=== PATIENT | male | born 1945 | race Caucasian/White ===

== ENCOUNTER → 2016-07-27 | Outpatient (CLI) | payer BC ==
[2016-07-27 12:44] LABS: ALT/SGPT 42 U/L (12-78); BLOOD UREA NITROGEN 16 mg/dl (7-18); BUN/CREATININE RATIO 14.8 (10-20); CALCIUM 8.8 mg/dl (8.5-10.1); CARBON DIOXIDE 23 mmol/L (21-32); CHLORIDE 106 mmol/L (98-107); CHOLESTEROL 196 mg/dl (0-200); GLUCOSE 119 mg/dl (70-99); POTASSIUM 3.9 mmol/L (3.5-5.1); SODIUM 140 mmol/L (136-145); TRIGLYCERIDES 367 mg/dl (0-150); VERY LOW DENSITY LIPOPROT CALC 73 mg/dl
[2016-07-27 12:49] LABS: ALB/GLOB RATIO 1.1 (0.9-2); ALKALINE PHOSPHATASE 52 U/L (45-117); AST/SGOT 26 U/L (15-37); CHOLESTEROL/HDL RATIO 5.4; HDL CHOLESTEROL 36 mg/dl; LDL CHOLESTEROL CALCULATED 87 mg/dl
[2016-07-27 12:54] LABS: ESTIMATED AVERAGE GLUCOSE 134 mg/dl; HA1C FLAG Normal (Normal)
[2016-07-27 13:13] LABS: RATIO 9.2 mcg/mg (0-30.0)
== END | disposition home or self-care (01) ==
LOC: C.LABBFT 08:24
PROVIDERS: ATTEND Family Medicine
DX: E11.9 Type 2 diabetes mellitus without complications (principal); I10 Essential (primary) hypertension; E78.5 Hyperlipidemia, unspecified

== ENCOUNTER → 2017-01-06 | Outpatient (CLI) | payer BC ==
[2017-01-06 12:23] LABS: BLOOD UREA NITROGEN 17 mg/dl (7-18); BUN/CREATININE RATIO 16.7 (10-20); CALCIUM 9.1 mg/dl (8.5-10.1); CARBON DIOXIDE 28 mmol/L (21-32); CHLORIDE 104 mmol/L (98-107); GLUCOSE 114 mg/dl (70-99); SODIUM 137 mmol/L (136-145)
[2017-01-06 12:40] LABS: ESTIMATED AVERAGE GLUCOSE 134 mg/dl; HA1C FLAG Normal (Normal)
== END | disposition home or self-care (01) ==
LOC: C.LABBFT 07:42
PROVIDERS: ATTEND Family Medicine
DX: R73.01 Impaired fasting glucose (principal)

== ENCOUNTER → 2017-06-29 | Outpatient (CLI) | payer BC ==
[2017-06-29 13:39] LABS: HEMOGLOBIN A1C 6.3 % (4.5-5.6)
[2017-06-29 14:13] LABS: BLOOD UREA NITROGEN 26 mg/dl (7-18); CALCIUM 9.3 mg/dl (8.5-10.1); CARBON DIOXIDE 25 mmol/L (21-32); CREATININE 1.22 mg/dl (0.60-1.40); GLUCOSE 112 mg/dl (70-99); POTASSIUM 3.7 mmol/L (3.5-5.1); SODIUM 137 mmol/L (136-145)
[2017-06-29 14:16] LABS: CHOLESTEROL 154 mg/dl (0-200); LDL CHOLESTEROL CALCULATED 80 mg/dl
== END | disposition home or self-care (01) ==
LOC: C.LABBFT 07:33
PROVIDERS: ATTEND Family Medicine
DX: I10 Essential (primary) hypertension (principal); M79.1 Myalgia; E11.9 Type 2 diabetes mellitus without complications; E78.5 Hyperlipidemia, unspecified

== ENCOUNTER → 2017-12-07 | Outpatient (CLI) | payer BC ==
[~2017-12-07] MED LIST: ASPI81TA28 PO; ATEN50TA8 PO; CHOL20007 PO; MAXZIDE PO; MELO15TA10 PO; OMEG10007 PO; SIMV20TA2 PO
--- NOTE | 2017-12-07 10:27 | DIAGNOSTIC IMAGING REPORT ---
RIGHT KNEE MRI HISTORY: RT KNEE PAIN COMPARISON STUDY: None. TECHNIQUE: Multiplanar multisequence MRI of the right knee was performed according to standard department protocol without the use of contrast. FINDINGS: Menisci: Mild degeneration within the body of the lateral meniscus without definite tear. Small tear along the undersurface of the junction of the body and posterior horn of the medial meniscus best seen on coronal image 16. There is a 7 mm meniscal flap seen extending into the inferior meniscal gutter also best seen on image 16. Ligaments: The anterior and posterior cruciate ligaments are intact. The medial and lateral collateral ligaments are normal in appearance. Extensor mechanism: The quadriceps tendon and patellar ligament are intact. Articular cartilage and bone: No fracture or dislocation within the right knee. Focal area of greater than 50% cartilage thinning within the median ridge of the patella. There is mild cartilage thinning within the medial femoral condyle. Joint effusion: None. Soft tissues: Mild subcutaneous edema anterior to the patellar ligament. IMPRESSION: 1. There is an undersurface tear at the junction of the body and posterior horn of the medial meniscus with a 7 mm meniscal flap extending into the inferior meniscal gutter. 2. Mild osteoarthritis as described above. 3. Mild subcutaneous edema anterior to the patellar ligament. However, the patellar ligament is within normal limits. Electronically signed by: Michael Leon M.D. 12/07/2017 10:26 AM Dictated Date/Time: 12/07/2017 10:18 AM
== END | disposition home or self-care (01) ==
LOC: C.MRIBC 09:31
PROVIDERS: ATTEND Orthopaedic Surgery
DX: S83.241A Other tear of medial meniscus, current injury, right knee, initial encounter (principal); X58.XXXA Exposure to other specified factors, initial encounter

== ENCOUNTER → 2017-12-13 | Outpatient (CLI) | payer BC ==
[2017-12-13 09:30] LABS: BASO % 0.7 %; BASO ABS # 0.06 K/uL (0-0.2); EOS % 4.3 %; EOS ABS # 0.39 K/uL (0-0.5); HEMATOCRIT 49.7 % (42-52); HEMOGLOBIN 17.2 g/dL (14.0-18.0); IG# 0.02 K/uL (0.00-0.02); LYMPH % 26.6 %; LYMPH ABS # 2.44 K/uL (1.2-3.4); MEAN CORPUSCULAR HEMOGLOBIN 29.8 pg (25-34); MEAN CORPUSCULAR HGB CONC 34.6 g/dl (32-36); MEAN PLATELET VOLUME 9.5 fL (7.4-10.4); MONO ABS # 0.92 K/uL (0.11-0.59); NEUT % 58.2 %; NEUT ABS # 5.33 K/uL (1.4-6.5); PLATELET COUNT 247 K/uL (130-400); RED CELL DISTRIBUTION WIDTH CV 14.2 % (11.5-14.5); RED CELL DISTRIBUTION WIDTH SD 44.1 fL (36.4-46.3); WHITE BLOOD COUNT 9.16 K/uL (4.8-10.8)
[2017-12-13 09:51] LABS: POTASSIUM 3.7 mmol/L (3.5-5.1)
== END | disposition home or self-care (01) ==
LOC: C.LAB 08:44
PROVIDERS: ATTEND Orthopaedic Surgery
DX: S83.241A Other tear of medial meniscus, current injury, right knee, initial encounter (principal); X58.XXXA Exposure to other specified factors, initial encounter; R00.1 Bradycardia, unspecified

== ENCOUNTER → 2018-01-02 | Day surgery (SDC) | payer BC ==
[2017-12-20 08:04] VITALS: Ht 170.2 cm; Wt 86.4 kg
[~2018-01-02] VITALS: Ht 170.2 cm; Wt 86.4 kg
[~2018-01-02] MED LIST changes: +ATROPINE SULFATE 0.1 MG/ML 5ML SYR IV PRN; +BUPIVACAINE 0.5 % 5 MG/1 ML PF 10ML VIAL ONE; +CEFAZOLIN 2000MG IV PUSH 15 ML IV SCH; +DEXAMETHASONE SOD INJ 4 MG/ML VIAL ONE; +EpHEDrine SULFATE 50MG/5ML SYR ONE; +EpHEDrine SULFATE INJ 50 MG/ML AMP IV PRN; +EpINEphrine INJ 1MG/ML AMP 1 MG/ML AMP ONE; +FENTANYL CITRATE INJ 50 MCG/1 ML 2 ML VIAL IV PRN; +FENTANYL CITRATE INJ 50 MCG/1 ML 2 ML VIAL ONE; +KETOROLAC TROMETHAMINE 30 MG/ML VIAL ONE; +LACTATED RINGER'S 1000ML 1,000 ML IV SCH; +LIDOCAINE HCL 2% 2 ML VIAL (20MG/ML) ONE; +MIDAZOLAM HCL 1 MG/ML 2ML VIAL ONE; +ONDANSETRON INJ 2 MG/ML 2 ML VIAL IV PRN; +ONDANSETRON INJ 2 MG/ML 2 ML VIAL ONE; +OXYCODONE/ACETAMINOPHEN 5-325 TAB PO PRN; +PROPOFOL IV EMULSION 10 MG/ML 20 ML VIAL ONE; +ROPIVACAINE 0.5% 5 MG/ML 30 ML VIAL ONE; +SODIUM CHLORIDE 0.9% 1000ML 1,000 ML IV SCH; +TRAM-10 PO
--- NOTE | 2018-01-02 07:52 | History & Physical Bridge - SC ---
H&P Re-Evaluation Bridge Note: I have examined the patient, reviewed the History & Physical and in the interval since the performance of the History & Physical I have noted the following changes of clinical significance: No changes noted
--- NOTE | 2018-01-02 08:17 | [facility] Post Operative Brief Note ---
Immediate Operative Summary Operative Date Jan 02, 2018. Pre-Operative Diagnosis Right Knee Medial Meniscus Tear Post-Operative Diagnosis Same Procedure(s) Performed Right Knee Arthroscopy, Partial Medial Meniscectomy, Chondroplasty of Patella Surgeon Dr. Beth Guitar Technician Surgeon(s) Yael Dan PA-C Estimated Blood Loss 0 mL Findings Consistent with Post-Op Diagnosis Specimens None Drains None Anesthesia Type General Complication(s) none Disposition Accompanied Pt To Recover: no Disposition: Recovery Room / PACU
--- NOTE | 2018-01-02 08:29 | Discharge Instructions-SurgCtr ---
Discharge Instructions Date of Service Jan 02, 2018. Visit Reason for Visit: Right Knee Medial Meniscus Tear Discharge Discharge Diagnosis / Problem: SAME ABOVE Discharge Goals Goal(s): Decrease discomfort, Improve function Medications Stopped Medications Name(s): Aspirin, Meloxicam, Fish Oil Last dose 1 week ago Activity Recommendations Activity Limitations: as noted below Lifting Limitations: until after follow-up appointment Exercise/Sports Limitations: until after follow-up appointment Shower/Bathe: tomorrow Weightbearing Status: Right weightbearing (as tolerated) Anesthesia . Post Anesthesia Instructions: If you have had General Anesthesia or IV Sedation: * Do not drive today. * Resume driving when surgeon permits. * Do not make important decisions or sign legal documents today. * Call surgeon for: 1. Temperature elevations greater than 101 degrees F. 2. Uncontrollable pain. 3. Excessive bleeding. 4. Persistent nausea and vomiting. 5. Medication intolerance (nausea, vomiting or rash). * For nausea and vomiting use only clear liquids such as: tea, soda, bouillon until nausea subsides, then gradually increase diet as tolerated. * If you have any concerns or questions, call your surgeon's office. If physician is unavailable and it is an emergency, call 911 or go to the nearest emergency room. . Instructions / Follow-Up Instructions / Follow-Up MEDICATIONS: * Resume previous medications unless instructed otherwise by your surgeon. * Always take pain medication on a full stomach or with food to avoid upset stomach. * Do not drink alcohol or drive while taking narcotics. * Ibuprofen or Tylenol may be taken if narcotic not needed. SPECIAL CARE INSTRUCTIONS: __ None _X_ Keep extremity elevated and iced x 48 hours; apply ice 20-30 minutes 8-10 times/day. May remove at night. __ Crutches __ May discard when able __ Brace/Post-op shoe __ 24 hrs/day __ Remove at night _X_ Dressing __ Maintain until seen in office, may shower with plastic over site _X_ Remove dressings in 24-48 hours and then may shower _X_ Cover incisions with band-aids after showering __ Do not remove steri-strips Call physician if chills or temperature rises above 102 degrees or pain unrelieved by prescribed pain medications. Office [phone] Diet Recommendations Home Diet: resume previous diet Procedures Procedures Performed: Right Knee Arthroscopy, Partial Medial Meniscectomy, Chondroplasty of Patella Pending Studies Studies pending at discharge: no Medical Emergencies . Who to Call and When: Medical Emergencies: If at any time you feel your situation is an emergency, please call 911 immediately. . Non-Emergent Contact Non-Emergency issues call your: Primary Care Provider . . "Provider Documentation" section prepared by Dylan Dan. .
--- NOTE | 2018-01-02 09:00 | OPERATIVE REPORT ---
DATE OF OPERATION: 01/02/2018 PREOPERATIVE DIAGNOSIS: Medial meniscus tear, right knee. POSTOPERATIVE DIAGNOSES: 1. Displaced flap tear of the posterior horn of the medial meniscus. 2. Grade 2 degenerative joint disease, medial femoral condyle. 3. Grade 2-3 degenerative joint disease underneath the surface of patella. SURGERIES: 1. Right knee arthroscopy. 2. Partial medial meniscectomy. 3. Chondroplasty, medial femoral condyle. 4. Chondroplasty underneath the surface of patella. SURGEON: Dmitri Beth MD SENIOR JAVA ARCHITECT: Dylan Dan PA-C ANESTHESIOLOGIST: Dionte Multani DO ANESTHESIA: LMA. DRAINS: None. COMPLICATIONS: None. CONDITION: The patient tolerated the procedure well and returned to recovery room in apparent satisfactory condition. INDICATIONS FOR SURGERY: Gavin is a 72-year-old male who has had increasing pain and discomfort in right knee consistent with meniscal pathology. Went over treatment options and elected to go ahead and proceed with surgery. The procedure, expected outcome, side effects, these were all explained in detail. DESCRIPTION OF PROCEDURE: The patient was taken to the OR at which time he was placed supine on the operating table and put to sleep by anesthesia department. Examination of the right knee was performed. Ligamentous nance the knee was examined and it was stable. Knee then was prepped and draped in usual sterile fashion for arthroscopic examination. Anteromedial and anterolateral portals were established. Arthroscopic examination in the knee was begun. We found a flap tear of the posterior horn of the medial meniscus. Portion of the meniscus was flipped underneath on itself, stuck between the meniscal ligament between the meniscus and the tibial ligament. We went ahead and reduced it back into the joint and removed it out without incident. There were grade 2-3 changes on the flexion surface of the femoral condyle. Chondroplasty was done here. Lateral compartment was inspected to be normal. ACL was fine. We found some erosion underneath the surface of patella on the medial facet, probably grade 2-3. Chondroplasty was performed here. Knee then was copiously irrigated. All cannulas were removed. The portals were closed with 4-0 nylon suture. 30 mL of ropivacaine, 10 mg of Toradol, and 1 mL of epinephrine was placed in the knee joint. Placed sterile dressing of Xeroform, 4 x 4, ABD, Sof-Rol, and Gerber bandage and returned back to recovery room in apparent satisfactory condition. SURGICAL FINDINGS: Include: 1. Flap tear of the posterior horn of the medial meniscus. 2. Grade 2-3 articular changes to flexion surface of femoral condyle. 3. Grade 2-3 changes in the medial facet of the underneath surface of the patella. I attest to the content of the Intraoperative Record and any orders documented therein. Any exceptions are noted below. MTDD
[2018-01-02 09:27] VITALS: TEMP 36.2
--- NOTE | 2018-01-02 09:32 | Anesthesia Progress Nt - [facility] ---
Anesthesia Post Op Note Date & Time Jan 02, 2018 at 09:32 Vital Signs Pain Intensity: 0 Vital Signs Past 12 Hours Date Time Temp Pulse Resp B/P (MAP) Pulse Ox O2 Delivery O2 Flow Rate FiO2 01/02/18 09:27 36.2 50 18 148/83 (104) 94 Room Air 01/02/18 09:22 152/90 01/02/18 09:21 52 19 89 01/02/18 09:21 54 19 01/02/18 09:16 46 14 114/81 92 01/02/18 09:16 52 14 01/02/18 09:15 52 12 94 01/02/18 09:15 52 12 01/02/18 09:11 138/83 01/02/18 09:10 56 15 01/02/18 09:10 56 15 95 01/02/18 09:09 36.2 54 16 138/83 93 Room Air 01/02/18 09:07 159/101 01/02/18 09:05 57 15 01/02/18 09:05 57 15 96 01/02/18 09:01 122/78 01/02/18 09:00 49 15 01/02/18 09:00 49 15 98 01/02/18 08:56 131/84 01/02/18 08:55 49 12 98 01/02/18 08:55 49 12 01/02/18 08:51 108/71 01/02/18 08:50 47 16 98 01/02/18 08:50 47 16 01/02/18 08:46 102/76 01/02/18 08:45 48 13 97 01/02/18 08:45 49 13 01/02/18 08:41 110/84 01/02/18 08:40 49 16 01/02/18 08:40 49 16 97 01/02/18 08:36 104/80 01/02/18 08:35 50 16 01/02/18 08:35 50 16 97 01/02/18 08:31 97/83 01/02/18 08:30 50 10 01/02/18 08:30 50 10 97 01/02/18 08:26 114/68 01/02/18 08:25 36.2 50 8 114/68 98 Mask 6 01/02/18 07:19 36.1 53 18 176/99 (124) 93 Room Air Notes Mental Status: alert / awake / arousable, participated in evaluation Pt Amnestic to Procedure: Yes Nausea / Vomiting: adequately controlled Pain: adequately controlled Airway Patency, RR, SpO2: stable & adequate BP & HR: stable & adequate Hydration State: stable & adequate Anesthetic Complications: no major complications apparent
[2018-01-02 09:55] VITALS: BP 120/66; PULSE 52; O2SAT 97
== END | disposition home or self-care (01) ==
LOC: X.SURG 06:59
PROVIDERS: ATTEND Orthopaedic Surgery
DX: S83.241A Other tear of medial meniscus, current injury, right knee, initial encounter (principal); M17.11 Unilateral primary osteoarthritis, right knee; I10 Essential (primary) hypertension; E11.9 Type 2 diabetes mellitus without complications; Z79.82 Long term (current) use of aspirin; Z79.899 Other long term (current) drug therapy; E78.00 Pure hypercholesterolemia, unspecified

== ENCOUNTER → 2018-01-12 | Outpatient (CLI) | payer BC ==
[~2018-01-12] MED LIST changes: -ATROPINE SULFATE 0.1 MG/ML 5ML SYR IV PRN; -BUPIVACAINE 0.5 % 5 MG/1 ML PF 10ML VIAL ONE; -CEFAZOLIN 2000MG IV PUSH 15 ML IV SCH; -DEXAMETHASONE SOD INJ 4 MG/ML VIAL ONE; -EpHEDrine SULFATE 50MG/5ML SYR ONE; -EpHEDrine SULFATE INJ 50 MG/ML AMP IV PRN; -EpINEphrine INJ 1MG/ML AMP 1 MG/ML AMP ONE; -FENTANYL CITRATE INJ 50 MCG/1 ML 2 ML VIAL IV PRN; -FENTANYL CITRATE INJ 50 MCG/1 ML 2 ML VIAL ONE; -KETOROLAC TROMETHAMINE 30 MG/ML VIAL ONE; -LACTATED RINGER'S 1000ML 1,000 ML IV SCH; -LIDOCAINE HCL 2% 2 ML VIAL (20MG/ML) ONE; -MIDAZOLAM HCL 1 MG/ML 2ML VIAL ONE; -ONDANSETRON INJ 2 MG/ML 2 ML VIAL IV PRN; -ONDANSETRON INJ 2 MG/ML 2 ML VIAL ONE; -OXYCODONE/ACETAMINOPHEN 5-325 TAB PO PRN; -PROPOFOL IV EMULSION 10 MG/ML 20 ML VIAL ONE; -ROPIVACAINE 0.5% 5 MG/ML 30 ML VIAL ONE; -SODIUM CHLORIDE 0.9% 1000ML 1,000 ML IV SCH
[2018-01-12 13:00] LABS: ALBUMIN 3.9 gm/dl (3.4-5.0); ALKALINE PHOSPHATASE 53 U/L (45-117); ALT/SGPT 43 U/L (12-78); AST/SGOT 29 U/L (15-37); BLOOD UREA NITROGEN 18 mg/dl (7-18); CARBON DIOXIDE 25 mmol/L (21-32); CHOLESTEROL 166 mg/dl (0-200); CREATININE 1.08 mg/dl (0.60-1.40); GLUCOSE 108 mg/dl (70-99); LDL CHOLESTEROL CALCULATED 79 mg/dl; POTASSIUM 3.7 mmol/L (3.5-5.1); SODIUM 138 mmol/L (136-145); TOTAL PROTEIN 7.6 gm/dl (6.4-8.2)
[2018-01-12 13:05] LABS: HEMOGLOBIN A1C 6.3 % (4.5-5.6)
== END | disposition home or self-care (01) ==
LOC: C.LABPVFM 10:29
PROVIDERS: ATTEND Family Medicine
DX: E78.5 Hyperlipidemia, unspecified (principal); Z98.890 Other specified postprocedural states; E11.9 Type 2 diabetes mellitus without complications; E55.9 Vitamin D deficiency, unspecified

== ENCOUNTER 2019-12-17 05:10 | Observation (INO) ==
--- NOTE | 2019-11-15 16:06 | PAT Medication Instructions ---
Medication Instructions Date of Service November 15, 2019 Home Medications Medication Instructions Recorded blood sugar diagnostic #100 ea 01/24/19 blood-glucose meter #1 ea 01/24/19 lancets #100 ea 01/24/19 atenolol 50 mg tablet 50 mg PO BID #180 tab 11/14/19 meloxicam 15 mg tablet 15 mg PO QAM #90 tab 11/14/19 sildenafil 50 mg tablet 50 mg PO DAILY PRN #10 tab 11/14/19 simvastatin 10 mg tablet 10 mg PO HS #90 tab 11/14/19 triamterene 37.5 1 tab PO QAM #90 tab 11/14/19 mg-hydrochlorothiazide 25 mg tablet albuterol sulfate [Ventolin HFA] 1 - 2 puff INHALATION Q4 PRN aspirin 81 mg PO QAM cholecalciferol (vitamin D3) [Vitamin D3] 2,000 unit PO BID omega 6-rpo-zfn-fish oil [Fish Oil] 1 cap PO BID atenolol 50 mg tablet 50 mg PO BID meloxicam 15 mg tablet 15 mg PO QAM sildenafil 50 mg tablet 50 mg PO DAILY PRN simvastatin 10 mg tablet 10 mg PO HS triamterene 37.5 mg-hydrochlorothiazide 25 mg tablet 1 tab PO QAM ASK your surgeon for instructions meloxicam 15 mg tablet 15 mg PO QAM STOP taking 2 weeks before surgery omega 1-zsh-aqc-fish oil [Fish Oil] 1 cap PO BID STOP taking 24 hours before surgery sildenafil 50 mg tablet 50 mg PO DAILY PRN DO NOT take the morning of surgery cholecalciferol (vitamin D3) [Vitamin D3] 2,000 unit PO BID triamterene 37.5 mg-hydrochlorothiazide 25 mg tablet 1 tab PO QAM Take morning of surgery With a small sip of water, OTHERWISE NOTHING TO EAT OR DRINK AFTER MIDNIGHT: albuterol sulfate [Ventolin HFA] 1 - 2 puff INHALATION Q4 PRN (use if needed; please bring with you to hospital day of surgery if possible) aspirin 81 mg PO QAM atenolol 50 mg tablet 50 mg PO BID Take evening before surgery albuterol sulfate [Ventolin HFA] 1 - 2 puff INHALATION Q4 PRN (if needed) cholecalciferol (vitamin D3) [Vitamin D3] 2,000 unit PO BID atenolol 50 mg tablet 50 mg PO BID simvastatin 10 mg tablet 10 mg PO HS Other Notes If you have any questions please call us at [phone] or [phone] or [phone] or [phone]
--- NOTE | 2019-11-20 09:48 | Anesthesiology Consultation ---
Date of Service November 20, 2019 Assessment & Plan (1) Encounter for pre-operative examination: Chart Review Chart Review: Acceptable Risk for Surgery (pending Covid testing) and Patient seen in Pre Admission Testing - Check BSG AM DOS Did inform surgeon's office of mild leukocytosis with current dental infection- will leave to surgeon's discretion whether or not to proceed with surgery. Per PAT appt 11/20/19, patient traveled to [facility] for high school graduation on 11/02/19- did wear mask and social distance. Educated patient to follow up with surgeon's office regarding Covid testing. Educated on importance of self quarantining, social distancing and wearing mask in public both for herself and household contacts. Having dental issues- fillings continue to fall out. Has small abscess-meeting with general merchandise manager 11/21/19 to discuss treatment plan. If teeth not removed two weeks prior to knee surgery- needs to wait 4-5 months for dental procedure after TKA. Pt may have to postpone TKA. Pt will follow up with surgeon after general merchandise manager appt. Teaching & Discussion Pre-Anesthesia Teaching/Discussion Notes: Instructed NPO after midnight before surgery,except medications with 15 cc of water. Medication instructions provided according to the PAT guidelines. History Surgery Operation Date: 12/17/19 13:00 Proposed Procedures p Right Uni Compartment Knee Arthroplasty - Dylan Babcock DO Height/Weight Height: 5 ft 7 in Weight: 88.8 kg Allergies Allergy/AdvReac Type Severity Reaction Status Date / Time celecoxib [From Celebrex] Allergy Mild Rash Verified 11/14/19 08:50 lisinopril Allergy Mild headache/co Verified 11/14/19 08:50 ugh Medications Home Medications Medication Instructions Recorded Confirmed Last Taken albuterol sulfate [Ventolin HFA] 1 - 2 puff INHALATION Q4 PRN 08/01/18 11/14/19 03/05/18 aspirin 81 mg PO QAM 08/01/18 11/14/19 08/19/18 cholecalciferol (vitamin D3) 2,000 unit PO BID 08/01/18 11/14/19 08/19/18 [Vitamin D3] omega 8-bem-bxo-fish oil [Fish Oil] 1 cap PO BID 08/01/18 11/14/19 08/19/18 blood sugar diagnostic #100 ea 01/24/19 10/22/19 Unknown blood-glucose meter #1 ea 01/24/19 10/22/19 Unknown lancets #100 ea 01/24/19 10/22/19 Unknown atenolol 50 mg tablet 50 mg PO BID #180 tab 11/14/19 Unknown meloxicam 15 mg tablet 15 mg PO QAM #90 tab 11/14/19 Unknown sildenafil 50 mg tablet 50 mg PO DAILY PRN #10 tab 11/14/19 Unknown simvastatin 10 mg tablet 10 mg PO HS #90 tab 11/14/19 Unknown triamterene 37.5 1 tab PO QAM #90 tab 11/14/19 Unknown mg-hydrochlorothiazide 25 mg tablet Past Medical History Medical History (Updated 11/20/19 @ 10:08 by Amarilis Wyatt PA-C) Erectile dysfunction History of kidney stones Hyperlipidemia Hypertension Osteoarthritis Prediabetes Reducible right inguinal hernia Vitamin D insufficiency Exercise / Class Metabolic Activity II 4-5 Yardwork/Stairs/Walk up hill (one fight of stairs- no chest pain or SOB) Past Family History Family History Brother Family history of diabetes mellitus Hypertension Heart disease Mother Family history of diabetes mellitus Family hx colonic polyps Sister Breast cancer Father Myocardial infarction Heart disease Hypertension Other No family history of adverse response to anesthesia Denies family history of Ovarian cancer Prostate cancer Colorectal cancer Past Surgical History Surgical History History of arthroscopy of right knee History of colonoscopy History of cystoscopy History of laminectomy LUMBAR SPINE History of nasal surgery POLYPS REMOVED History of removal of cyst sebaceous cyst removed off neck History of tonsillectomy and adenoidectomy History of wisdom tooth extraction Past Anesthesia History No Hx of Anesthesia Complications and No Family Hx of Anesthesia Complications History of PONV No Hx of PONV and Hx of Motion Sickness (on amusement rides ) Social History Smoking Status: Former smoker tobacco type: cigarettes Do You Dip or Chew Tobacco: No Smoking End Date: 06/29/1988 Hx Alcohol Use: Yes Alcohol type: beer alcohol intake frequency: a few times a week Hx Substance Use: No substance use type: does not use Review of Systems Occ snoring- no witnessed apnea or history of sleep study Patient denies chest pain, shortness of breath, dyspnea on exertion, reflux, cough, wheezing, palpitations. No hx of seizures, stroke, CA. No hx of blood clots or blood transfusions Physical Exam Vital Signs VITALS BP 153/82 P 51 (chronic bradycardia- stable- denies syncope or dizziness) TEMP 97.8 SP02 95% RESP 16 Constitutional no acute distress ENMT Mouth: no TMJ clicking Thyromental Distance: > or= 3.5 Finger Breadths (3.5) Mallampati Class: I Missing right molar Lower left molars having fillings/infection issues (follow with dentist /general merchandise manager) Neck neck extension not limited Respiratory normal respiratory effort; no respiratory distress Auscultation: lungs clear to auscultation bilaterally; no wheezes Cardiovascular Rate/Rhythm: regular rate and regular rhythm Heart Sounds: no murmur Vessels: no carotid bruit Musculoskeletal Spine: no pain with cervical ROM Neurologic moves all extremities Psychiatric Orientation: alert Testing Laboratory Results 11/20/19 10:04 11/20/19 10:04 PT 10.1 Seconds (9.0-12.0) 11/20/19 10:04 INR 1.0 (0.9-1.1) 11/20/19 10:04 APTT 27.4 Seconds (21.0-31.0) 11/20/19 10:04 Hemoglobin A1c 6.6 % (4.5-5.6) H 11/20/19 10:04 Blood Type A Positive 11/20/19 10:04 Antibody Screen NEGATIVE 11/20/19 10:04 Electrocardiogram Date: 11/20/19 Findings: + SB @ (46) When compared to EKG from December 13, 2017- no significant change per cardio Chest X-Ray Date: 11/20/19 Findings: + NAD and + cardiomegaly (mild)
--- NOTE | 2019-11-20 10:31 | XRay Report ---
XR chest Pre-admission PA/Lat CLINICAL HISTORY: Preoperative evaluation. COMPARISON STUDY: No previous studies for comparison. FINDINGS: Lung volumes are normal. Lungs are clear. There is no pneumothorax or pleural effusion. Mil d cardiomegaly is noted. Mediastinal contours are normal. There is no evidence for pulmonary edema. IMPRESSION: 1. No acute cardiopulmonary findings. 2. Mild cardiomegaly. ACT 112: Negative or not required by law. Electronically signed by: Gianluca Maradiaga M.D. 11/20/2019 10:29 AM
[2019-11-20 11:04] LABS: Basophils # (auto) 0.05 K/uL (0-0.2); Basophils % (auto) 0.4 %; Eosinophils # (auto) 0.31 K/uL (0-0.5); Eosinophils % (auto) 2.8 %; Hematocrit (blood only) 49.8 % (42-52); Hemoglobin 16.9 g/dL (14.0-18.0); Immature Granulocytes # (auto) 0.03 K/uL (0.00-0.02); Immature Granulocytes % (auto) 0.3 %; Lymphocytes % (auto) 21.3 %; Mean Corpuscular Hemoglobin 29.8 pg (25-34); Mean Corpuscular Hgb Conc 33.9 g/dL (32-36); Mean Corpuscular Volume 87.7 fL (80-100); Mean Platelet Volume 9.7 fL (7.4-10.4); Monocytes # (auto) 0.93 K/uL (0.11-0.59); Monocytes % (auto) 8.3 %; Neutrophils # (auto) 7.55 K/uL (1.4-6.5); Neutrophils % (auto) 66.9 %; Platelet Count 288 K/uL (130-400); RDW Coefficient of Variation 14.4 % (11.5-14.5); RDW Standard Deviation 46.1 fL (36.4-46.3); Red Blood Count 5.68 M/uL (4.7-6.1); White Blood Count 11.27 K/uL (4.8-10.8)
[2019-11-20 11:07] LABS: Estimated Average Glucose 143 mg/dl; Hemoglobin A1C 6.6 % (4.5-5.6)
[2019-11-20 11:12] LABS: BUN Creatinine Ratio 15.2 (10-20); Calcium 9.1 mg/dl (8.5-10.1); Creatinine Clr Calc Pharmacy 59.8 ml/min; Est GFR (African American) 71.3; Est GFR (Non-African American) 61.5
[2019-11-20 11:19] LABS: Partial Thromboplastin Time 27.4 Seconds (21.0-31.0); Prothrombin Time 10.1 Seconds (9.0-12.0)
--- NOTE | 2019-11-20 14:45 | Electrocardiogram Report ---
Test Reason : Blood Pressure : / mmHG Vent. Rate : 046 BPM Atrial Rate : 046 BPM P-R Int : 208 ms QRS Dur : 090 ms QT Int : 490 ms P-R-T Axes : 071 -07 040 degrees QTc Int : 428 ms Sinus bradycardia Otherwise normal ECG When compared with ECG of 13-DEC-2017 09:05, No significant change was found Confirmed by Moses Bashir ([id number]) on 11/20/2019 2:44:58 PM Referred By: Dylan Babcock Confirmed By:Moses Bashir
--- NOTE | 2019-12-12 08:58 | History & Physical Report ---
Date of Service December 12, 2019 Assessment & Plan (1) Right knee DJD: We will proceed with a right unicompartmental knee arthroplasty. Postoperatively he will be started on aspirin for DVT prophylaxis and kept overnight in the hospital for postoperative medical management. He plans to go to outpatient physical therapy in [place] upon discharge. Angel is a low risk for joint placement surgery without any major comorbidities. Present on Admission?: Yes History of Present Illness Chief Complaint: Primary osteoarthritis of the right knee Primary Care Provider: Sera El MD Gavin is a pleasant 74-year-old male who is been dealing with chronic increasing right knee pain. X-rays, MRI, and clinical examination were all diagnostic for advanced medial compartmental arthritis of the right knee. After failing conservative treatment, he elected proceed with a right unicompartmental knee arthroplasty. Allergies Allergy/AdvReac Type Severity Reaction Status Date / Time celecoxib [From Celebrex] Allergy Mild Rash Verified 11/14/19 08:50 lisinopril Allergy Mild headache/co Verified 11/14/19 08:50 ugh Home Medications Home Medications Medication Instructions Recorded Confirmed Type albuterol sulfate [Ventolin HFA] 1 - 2 puff INHALATION Q4 PRN 08/01/18 11/14/19 History aspirin 81 mg PO QAM 08/01/18 11/14/19 History cholecalciferol (vitamin D3) 2,000 unit PO BID 08/01/18 11/14/19 History [Vitamin D3] omega 0-tvf-fmc-fish oil [Fish Oil] 1 cap PO BID 08/01/18 11/14/19 History blood sugar diagnostic #100 ea 01/24/19 10/22/19 Rx blood-glucose meter #1 ea 01/24/19 10/22/19 Rx lancets #100 ea 01/24/19 10/22/19 Rx atenolol 50 mg tablet 50 mg PO BID #180 tab 11/14/19 Rx meloxicam 15 mg tablet 15 mg PO QAM #90 tab 11/14/19 Rx sildenafil 50 mg tablet 50 mg PO DAILY PRN #10 tab 11/14/19 Rx simvastatin 10 mg tablet 10 mg PO HS #90 tab 11/14/19 Rx triamterene 37.5 1 tab PO QAM #90 tab 11/14/19 Rx mg-hydrochlorothiazide 25 mg tablet Past Med/Surg History Medical History Erectile dysfunction History of kidney stones Hyperlipidemia Hypertension Osteoarthritis Prediabetes Reducible right inguinal hernia Vitamin D insufficiency Surgical History History of arthroscopy of right knee History of colonoscopy History of cystoscopy History of laminectomy LUMBAR SPINE History of nasal surgery POLYPS REMOVED History of removal of cyst sebaceous cyst removed off neck History of tonsillectomy and adenoidectomy History of wisdom tooth extraction Family History Brother Family history of diabetes mellitus Hypertension Heart disease Mother Family history of diabetes mellitus Family hx colonic polyps Sister Breast cancer Father Myocardial infarction Heart disease Hypertension Other No family history of adverse response to anesthesia Denies family history of Ovarian cancer Prostate cancer Colorectal cancer Social History Smoking Status: Former smoker Smoking End Date: 06/29/1988; Second Hand Exposure: No; Do You Dip or Chew Tobacco: No; Tobacco Cessation Education Requested by Patient: No Hx Alcohol Use: Yes Alcohol type: beer Hx Substance Use: No Preferred Language: Niuean Communication Ability: Effective Commuter Pilot Required: No Beliefs That Will Affect Care: None marital status: Current Living Situation: Spouse current occupational status: retired current occupation: Pharmacist Feels Safe at Home: Yes Safety Concerns: Feels Safe At This Time caffeine: Yes Dental Care, Regularly: Yes Physical Activity Frequency: 1-2 Times per Week Seatbelt Use: always Sunscreen Use: No Review of Systems Review of Systems: All systems reviewed & are unremarkable except as noted in HPI & below Physical Exam Constitutional: WD/WN, vitals as above Eyes: PERRL, conjunctivae normal, anicteric sclerae ENMT: external ear and nose normal, oropharynx normal Neck: trachea midline, no thyromegaly Respiratory: normal respiratory effort Cardiovascular: RRR, no murmur, no edema Gastrointestinal (Abdomen): normal bowel sounds, soft, nontender, no hepatosplenomegaly Musculoskeletal: On physical examination of the right knee there is a trace effusion. There is near full range of motion and no evidence of instability. There is significant tenderness palpation along the medial and lateral joint lines and over the distal femoral condyles. Psychiatric: A+Ox3, euthymic affect Results & Data Results & Data ([facility]) Diagnostic Findings Radiographs of the right knee demonstrate advanced osteoarthritis with joint space narrowing osteophyte formation and [id number] articulation. PG Care Time/CCT Total # of Minutes Spent Total Time Spent with Patient: Total time spent is greater than 50% in coordination of care (as documented) at patient's floor/unit and/or counseling patient: Coding Level of Care Code 71269 Initial Inpt Care Lvl 3 Diagnoses Right knee DJD M17.11
[2019-12-17] MEDS ORDERED: ROPIVACAINE 0.5% HCL/PF 150 MG, BUPIVACAINE 0.5% MPF 30 ML, EPINEPHrine 30MG/30ML (OR U... INSTIL SCH (06:00)
[2019-12-17] MEDS ORDERED: LR 500ML BOLUS, THEN 15ML/HR IV SCH (06:00)
[2019-12-17] MEDS ORDERED: CEFAZOLIN 2000MG 2,000 MG/15 ML SYR IV SCH (06:00)
[2019-12-17] MEDS ORDERED: TRANEXAMIC ACID 1,000 MG **IV Pre-op IV SCH (06:00)
[2019-12-17] MEDS ORDERED: ACETAMINOPHEN 500 MG TAB PO SCH (06:00)
[2019-12-17] MEDS ORDERED: FAMOTIDINE 20 MG TAB PO SCH (06:00)
[2019-12-17] MEDS ORDERED: TRANEXAMIC ACID 1,000 MG **IV Intra-op IV SCH (06:00)
[2019-12-17] MEDS ORDERED: dexAMETHasone 4 MG TAB PO SCH (06:00)
[2019-12-17] MEDS ORDERED: GABAPENTIN 300 MG CAP PO SCH (06:00)
[2019-12-17] MEDS ORDERED: LR 60ML/HR IV SCH (06:00)
[2019-12-17] MEDS ORDERED: BUPIVACAINE 0.5 % 5 MG/1 ML PF 10ML VIAL ONE (06:21)
[2019-12-17] MEDS ORDERED: EPINEPHrine INJ 1 MG/ML AMP ONE (06:22)
[2019-12-17] MEDS ORDERED: ROPIVACAINE 0.5% 5 MG/ML 30 ML VIAL ONE (06:22)
[2019-12-17] MEDS ORDERED: MIDAZOLAM HCL 1 MG/ML 2ML VIAL ONE (06:29)
[2019-12-17] MEDS ORDERED: fentaNYL citrate 100 MCG/2 ML VIAL ONE (06:29)
[2019-12-17] MEDS ORDERED: PROPOFOL IV EMULSION 10 MG/ML 20 ML VIAL IV ONE ×2 (06:29)
[2019-12-17] MEDS ORDERED: LIDOCAINE HCL 2% 2 ML VIAL/AMP(20MG/ML) INFIL ONE (06:29)
--- NOTE | 2019-12-17 06:38 | History & Physical Bridge Note ---
Date of Service December 17, 2019 History & Physical Bridge Note I have examined the patient, reviewed the History & Physical and in the interval since the performance of the History & Physical I have noted the following changes of clinical significance: no changes noted
[2019-12-17] MEDS ORDERED: ORTHO JOINT ANESTHETIC ONE (06:48)
[2019-12-17] MEDS ORDERED: ONDANSETRON INJ 2 MG/ML 2 ML VIAL ONE (07:24)
[2019-12-17] MEDS ORDERED: ePHEDrine sulfate 50 MG/ML AMP ONE (07:24)
--- NOTE | 2019-12-17 08:27 | Operative Report ---
PG Post Operative Report Pre & Post Diagnosis Operation Date: 12/17/19 07:15 Pre-Op Diagnosis: RIGHT KNEE DEGENERATIVE JOINT DISEASE Post-Op Diagnosis: RIGHT KNEE DEGENERATIVE JOINT DISEASE I identified the patient and participated in the time-out.: Yes Procedure Operation Date: 12/17/19 07:15 Actual Procedures p Right Uni Compartment Knee Arthroplasty(Right) - Dylan Babcock DO Surgeon Dylan Babcock DO Internet Marketing Analyst Dylan Dan PAC Estimated Blood Loss 10 Findings Consistent with Post-Op Diagnosis Specimens Right femoral and tibial bone Complications none Disposition Disposition: Recovery Room Indications Angel is a pleasant 74-year-old male who presented my office with chronic increasing right knee pain. X-rays and clinical examination were diagnostic for medial compartmental arthritis of the right knee. After failing conservative treatment, he elected to proceed with a right partial knee replacement. Description of Procedure Implants used: I used a [employer] [place] unicompartmental knee arthroplasty system with a size medium femur, B tibia, and a size 4 mm mobile polyethylene bearing. All components were cemented in place with Palacos G cement. Gavin arrived [facility] for the above procedure. He was seen in the preoperative holding area and the operative extremity was identified and signed. He was given a preoperative antibiotic, TXA, a spinal anesthetic and an adductor nerve block. He was taken back to the operating room and laid on the table in the supine position. He was given basic sedation. The operative knee was then prepped and draped in sterile fashion. A timeout was done, and the patient and the operative extremity was properly identified. A midline incision was made from the superior pole of the patella down to the tibial tubercle. Dissection was taken down to the extensor mechanism and a subvastus arthrotomy was used. The medial retinaculum was released and a small portion of the fat pad was excised. The knee was then placed in a leg gilliam and the intra-articular portion of the knee was exposed. The medial meniscus was removed. The ACL was intact and the lateral compartment was inspected and there were no signs of any chondral damage. Several sizing spoons were used to measure the distal femur and it measured to be a size medium.The tibial saw guide was then placed externally over the shaft of the tibia. A 4 mm G clamp was used to clamp the spoon with the external tibial saw guide. 2 pins were placed. A reciprocating saw was then used to resect the tibia just medial to the apex of the medial tibial spine. An oscillating saw was then used to resect the tibial plateau. The tibial bone was then removed. The tibia measured to be a size B. The trochlea was then exposed. A 4 mm drill was sent down the center of the femoral canal followed by a long intramedullary av. A line was then marked in the center of the distal medial femoral condyle. A femoral drill guide was then placed and the IM link was used to connect the intramedullary av to the femoral drill guide. A 4 mm drill was used in the upper pole of the drill guide and a 6 mm drill was used in the lower pole of the drill guide. The drill guide was then removed. A posterior resection guide was then placed in the posterior femur was resected. A 0 spigot was then impacted in the 6 mm drill hole. The distal femur was then milled and osteophytes were removed. Femoral and tibial trials were then placed. A size 4 feeler gauge was used to measure the flexion gap in 100 of flexion. A size 1 feeler gauge was used to measure the extension gap in full extension. Trials were then removed and a size 3 spigot was then impacted in the 6 mm hole. The distal femur was once again milled. The anti- impingement guide was then impacted into place and an anterior mill was used to remove anterior bone and create clearance for the front of the bearing. The tibial template was then placed and the keel cut saw was used to resect for the keeled component. Trial components were then placed along with a size 4 mobile- bearing. The knee was brought through a full range of motion and felt to be stable. All trial components were then removed. Surrounding soft tissues were then injected with 50 cc of a pain control cocktail. Drill holes were placed in the distal femur to help with cement integration. The femoral and tibial com ponents were then cemented in place with Palacos G cement. The size 4 mobile- bearing was then snapped into place. The knee was brought through a full range of motion and felt to be stable. The joint was then irrigated with normal saline solution. The tourniquet was deflated and hemostasis was obtained. The extensor mechanism was then closed with #1 Vicryl suture. Skin was closed with 2-0 Vicryl, 3-0V lock suture, and angie. A Silverlon dressing was then placed. He was then transferred to a hospital bed and taken to the postanesthesia care unit in stable condition. He tolerated the procedure well. Dylan Dan PA-C, was present for the entire procedure. He was critical for patient positioning, prepping, draping, retraction exposure, wound closure and application of sterile dressing. I attest to the content of the Intraoperative Record and any orders documented therein. Any exceptions are noted below.
[2019-12-17] MEDS ORDERED: HYDROmorphone INJ 1 MG/ML SYRINGE IV PRN (09:06)
[2019-12-17] MEDS ORDERED: ePHEDrine sulfate 50 MG/ML AMP IV PRN (09:06)
[2019-12-17] MEDS ORDERED: ONDANSETRON INJ 2 MG/ML 2 ML VIAL IV PRN ×2 (09:06→09:49)
[2019-12-17] MEDS ORDERED: ATROPINE SULFATE 0.1 MG/ML 10ML SYR IV PRN (09:06)
[2019-12-17] MEDS ORDERED: fentaNYL citrate 100 MCG/2 ML VIAL IV PRN (09:06)
--- NOTE | 2019-12-17 09:08 | XRay Report ---
XR knee RT 1 or 2V routine CLINICAL HISTORY: Surgical Post Op postoperative COMPARISON: None. DISCUSSION: Anatomic alignment post medial joint arthroplasty. Expected soft tissue postoperative scott nge. IMPRESSION: Anatomic alignment post medial joint hemiarthroplasty. ACT 112: Negative or not required by law. The above report was generated using voice recognition software. It may contain grammatical, syntax or spelling errors. Electronically signed by: Moose Edmonds M.D. 12/17/2019 9:06 AM
--- NOTE | 2019-12-17 09:20 | Anesthesiology Progress Note ---
Date of Service December 17, 2019 Anesthesia Post Procedure Vital Signs Vital Signs: Temp Pulse Pulse Resp BP Pulse Ox 12/17/19 09:15 36.6 C 60 15 117/61 94 12/17/19 09:05 62 12 117/65 96 12/17/19 08:55 61 18 106/56 L 95 12/17/19 08:46 36.1 C L 62 13 103/60 95 12/17/19 05:17 36.4 C L 61 18 164/97 H 94 Transfer of Care Handoff Completed per policy Notes Mental Status: alert / awake / arousable and participated in evaluation Patient Amnestic to Procedure: Yes Nausea / Vomiting: adequately controlled Pain: adequately controlled Airway Patency, RR, SpO2: stable & adequate BP & HR: stable & adequate Hydration State: stable & adequate Neuraxial Anesthesia: was administered and sensory block is resolving Anesthetic Complications: no major complications apparent and Pt Satisfied with anesthetic care
[2019-12-17] MEDS ORDERED: NON-FORMULARY MEDICATION (Sildenafil 50 MG) PO PRN (09:49)
[2019-12-17] MEDS ORDERED: OXYCODONE HCL IR 5 MG TAB (IMMEDIATE RELEASE) PO PRN (09:49)
[2019-12-17] MEDS ORDERED: METOCLOPRAMIDE HCL INJ 5 MG/ML 2 ML VIAL IV PRN (09:49)
[2019-12-17] MEDS ORDERED: HYDROmorphone INJ 0.5 MG/0.5 ML SYR IV PRN (09:49)
[2019-12-17] MEDS ORDERED: bisacodyL 10 MG SUPP PR PRN (09:49)
[2019-12-17] MEDS ORDERED: ALBUTEROL HFA 8 GM INHALER INH PRN (09:49)
[2019-12-17] MEDS ORDERED: NALOXONE HCL 0.4 MG/1 ML VIAL/CARP IV PRN (09:49)
[2019-12-17] MEDS ORDERED: MAGNESIUM HYDROXIDE SUSP 30 ML UDC PO PRN (09:49)
[2019-12-17] MEDS ORDERED: PHARMACY GLYCEMIC MGMT CONSULT PRN (11:09)
--- NOTE | 2019-12-17 11:22 | Pharmacy Report ---
Glycemic Control Consultation - Date of Service December 17, 2019 - Scope Scope: Glycemic Pharmacist consulted for glycemic control and to write orders per [facility] inpatient glycemic control protocol. - Objective Weight: 88.8 kg Accuchecks BSG (last 24hrs): 12/17/19 12/17/19 05:51 08:52 POC Glucose 141 H 160 H HbA1c: Hemoglobin A1c 6.6 % (4.5-5.6) H 11/20/19 10:04 - Recent Pertinent Medications Outpatient Anti-diabetic Regimen: * No outpatient anti-diabetic medications * A1c = 6.6% (11/20/2019) Risk Factors for Insulin Resistance: * Steroids: * Dexamethasone 8 mg PO x 1 pre-op * Dexamethasone 4 mg topical x 1 intra-op * Recent Surgery: * POD #0 s/p Right Knee Unicompartment Arthroplasty * Diet: * T2DM - Assessment & Plan Assessment & Plan: ASSESSMENT: * 74 yo M who is POD #0 s/p R knee unicompartment arthroplasty. Pharmacy is cons ulted for post-operative glycemic management. * Patient is diet controlled at home, no anti-diabetic medications. Most recent A1c was 6.6% at the beginning of the month. ADA & AACE recommend a goal blood sugar range 140-180 mg/dl for the majority of critically ill & non-critically ill patients. However, more stringent targets may be selected in individual cases. Will utilize more stringent goal of 110-140mg/dl based on patient age & comorbidities. Additionally, tighter glycemic control is warranted to facilitate wound/infection healing. * Pre-op BSG was 141 mg/dL. Immediate post-op BSG was 160 mg/dL. * Patient did receive pre-op PO steroids and intra-op topical steroids. No future steroid orders were found. * Lunchtime BSG was 190 mg/dL - Will give a 15 unit Lantus dose x 1 at lunch (0.17 units/kg) to cover for PO dexamethasone dose received pre-op * Given dexamethasone has it's most profound effect on post-prandial BSGs - will start with a high stress/dose, weight-based, carb ratio and correction factor. PLAN FOR INPATIENT GLYCEMIC CONTROL: * Basal insulin * Lantus 15 units SQ x 1 with lunch * Bolus insulin * NovoLog per scale ACHS or Q6hrs while NPO * Goal Range: Low 110 mg/dL - High 140 mg/dL * Correction Factor: 20 mg/dL/unit * Nutritional / Prandial insulin per carb ratio of 1 unit per 7 grams CHO consumed * Please note that the plan above was derived based on current level of insulin resistance and hospital stress. These recommendations are appropriate for inpatient admission only. Plan of care upon discharge will need to be reassessed to avoid potential outpatient hypo/hyperglycemia. Thank you.
[2019-12-17] MEDS ORDERED: LANTUS PER UNIT CHARGE SQ ONE (12:15)
[2019-12-17] MEDS: SODIUM CHLORIDE 0.9% 1000ML 1,000 ML IV SCH ×2 (12:28→22:03)
[2019-12-17] MEDS: ASPIRIN 81 MG ECTAB PO SCH ×2 (12:28→20:56)
[2019-12-17] MEDS: KETOROLAC TROMETHAMINE 15 MG/ML VIAL IV SCH ×2 (12:29→17:09)
[2019-12-17] MEDS: DOCUSATE SODIUM 100 MG CAP PO SCH ×2 (12:29→20:57)
[2019-12-17] MEDS: MULTIVITAMIN TAB PO SCH (12:29)
[2019-12-17] MEDS: TRIAMTERENE/HCTZ 37.5/25MG TAB PO SCH (12:29)
[2019-12-17] MEDS: ATENOLOL 50 MG TABLET PO SCH ×2 (12:30→20:58)
[2019-12-17] MEDS: INSULIN ASPART 100 UNITS/ML 3 ML PEN SC SCH ×3 (12:58→21:07)
[2019-12-17] MEDS: ACETAMINOPHEN 500 MG TAB PO SCH ×2 (13:52→20:57)
[2019-12-17] MEDS: CEFAZOLIN 2000MG 2,000 MG/15 ML SYR IV SCH (16:07)
[2019-12-17] MEDS ORDERED: SENNA 8.6 MG TAB PO SCH (21:00)
[2019-12-17] MEDS ORDERED: SIMVASTATIN 10 MG TAB PO SCH (21:00)
[2019-12-18] MEDS: CEFAZOLIN 2000MG 2,000 MG/15 ML SYR IV SCH (00:24)
[2019-12-18] MEDS: KETOROLAC TROMETHAMINE 15 MG/ML VIAL IV SCH ×2 (00:24→05:15)
[2019-12-18] MEDS: ACETAMINOPHEN 500 MG TAB PO SCH (05:15)
[2019-12-18 06:27] LABS: Hematocrit (blood only) 42.3 % (42-52); Hemoglobin 14.7 g/dL (14.0-18.0); Mean Corpuscular Hemoglobin 29.6 pg (25-34); Mean Corpuscular Hgb Conc 34.8 g/dL (32-36); Mean Corpuscular Volume 85.3 fL (80-100); Mean Platelet Volume 9.2 fL (7.4-10.4); Platelet Count 287 K/uL (130-400); RDW Coefficient of Variation 13.9 % (11.5-14.5); RDW Standard Deviation 43.2 fL (36.4-46.3); Red Blood Count 4.96 M/uL (4.7-6.1)
--- NOTE | 2019-12-18 06:42 | Orthopedic Progress Note ---
Date of Service December 18, 2019 Assessment & Plan (1) Status post right partial knee replacement: Overall he is doing very well. Is not having much pain in the right knee. He will be seen by physical therapy later today for ambulation and range of motion exercises. He can be discharged home later today. He is on aspirin for DVT prophylaxis. He will follow-up with orthopedics in 2 weeks. Present on Admission?: Yes Subjective Don was seen and examined at bedside this morning. Overall is doing very well. Is not having any pain in the right knee. He has been up and ambulating. He has no complaints. Physical Exam Musculoskeletal: On physical examination of the right knee, the dressing is clean and dry. His leg is out in full extension. He has active dorsiflexion and plantarflexion of his right ankle. Results & Data ([facility]) Vital Signs (Past 12 Hours) Vital Signs Temp Pulse Resp BP Pulse Ox 12/18/19 04:19 37.6 C H 46 L 18 112/64 95 12/18/19 00:11 37.2 C 63 20 115/63 95 12/17/19 20:01 36.6 C 66 20 122/65 90 Diagnostic Findings Postoperative x-rays of the right knee show the prosthesis to be in anatomic alignment without any evidence of fracture, dislocation, or loosening. PG Care Time/CCT Total # of Minutes Spent Total Time Spent with Patient: Total time spent is greater than 50% in coordination of care (as documented) at patient's floor/unit and/or counseling patient: Coding Level of Care Code None Diagnoses Status post right partial knee replacement Z96.651
--- NOTE | 2019-12-18 06:44 | Discharge Summary ---
Date of Service December 18, 2019 Admission HPI Per Admitting Provider Gavin is a pleasant 74-year-old male who is been dealing with chronic increasing right knee pain. X-rays, MRI, and clinical examination were all diagnostic for advanced medial compartmental arthritis of the right knee. After failing conservative treatment, he elected proceed with a right unicompartmental knee arthroplasty. Principal Diagnosis Right partial knee replacement Discharge Data Allergies Allergy/AdvReac Type Severity Reaction Status Date / Time celecoxib [From Celebrex] Allergy Mild Rash Verified 12/17/19 05:36 lisinopril Allergy Mild headache/co Verified 12/17/19 05:36 ug Consultations 12/17/19 09:49 Consult Case Management - Discharge Planning Routine Procedures Performed Operation Date: 12/17/19 07:15 Actual Procedures p Right Uni Compartment Knee Arthroplasty(Right) - Dylan Babcock DO Ordered Studies 12/17/19 05:00 US - OR guided needle placemen Routine 12/17/19 09:05 US - OR guided needle placemen Routine Hospital Course (1) Status post right partial knee replacement: On December 17, 2019 Angel arrived at [facility] and underwent a right partial knee replacement without complication. He had a spinal anesthetic. Postoperatively he was started on aspirin for DVT prophylaxis and transferred to the general orthopedic floors. His hospital course was uneventful. On postop day #1 his H&H was stable and his pain was well controlled. He was able to participate well with physical therapy doing ambulation and range of motion exercises. He was then discharged home. He will follow-up with orthopedics in 2 weeks. Total Time Total Time Spent Total Time Spent (In Minutes): 20 Discharge Plan Discharge Items Patient Disposition: Home - Home Health Services Reason For Visit: RIGHT KNEE DEGENERATIVE JOINT DISEASE Discharge Diagnosis: Right partial knee replacement Activity: As commented below Non-emergency contact: Surgeon Call non-emergency contact if: your wound has increased redness and your wound has increased drainage Follow-up/Referrals: Sera El MD [Primary Care Provider] - Diet: Carb Consistent or DM2 Addtl Attending Provider Instructions: Activity and Therapy Recommendations: * If you are using [facility] then therapy will be provided at your home until they feel you have accomplished all of your goals. * If you are using [facility] then Physical Therapy will be provided until they feel you are ready to start Outpatient Physical Therapy. * If you are not using home therapy then Outpatient Physical Therapy should start about 3-5 days from your day of surgery. Therapy will last about 6-10 weeks * It is important not to put a pillow under your knee when you are relaxing or sleeping. It is just as important to make sure you are getting your knee perfectly straight as it is to regain your knee bend. * You were shown a series of exercises in the hospital. Do these exercises three times each day including the exercises you were shown in physical therapy. * Get up and walk several times each day. For the first four weeks, try not to stand or walk for more than one hour at a time. If you do stand or walk for more than one hour, you will not hurt anything, but your leg will likely swell. * As you feel comfortable, you may change from the walker or crutches to a cane and then to independent walking. Medications: * Narcotic You will likely be sent home from the hospital with a prescription for the narcotic pain medication that worked best throughout your stay. * Aspirin Most patients will be required to take Aspirin 81mg twice a day for 6 weeks after surgery. This is obtained [id number] and a prescription is not necessary. * Other medications may be prescribed for specific circumstances. If you have any questions, please call the office at . * Resume previous home medications unless otherwise instructed TEDs/Elastic Stockings: The white elastic stockings help limit swelling and prevent blood clots from forming in your legs.~ The more you wear them, the more they work. Wear them for six weeks. Dressing Care: Leave the Silverlon dressing in place for 7 days. After 7 days you may remove the dressing. If the incision is not draining then you may leave the angie open to air. If there is a little bit of drainage or if the angie are getting stuck on your clothing then cover the incision with a dry dressing. The angie will be removed at your 2 week follow-up appointment. Showering: You may shower with the Silverlon dressing in place. Let the shower spray hit the other shoulder. You can pat the plastic dry. If the dressing becomes wet underneath the plastic then simply remove the dressing. Keep the incision dry until you are 7 days out from the day of surgery. At that time you can shower with the angie exposed. Let the soapy shower water run over the angie and pat them dry. Do not scrub or soak the incision. Things To Watch For: * Drainage from the incision site that occurs more than one week after your surgery. * Increased redness at the incision site. * Fever above 102 degrees Fahrenheit. * Unusual chest pain or shortness of breath. * Call [facility] at with any of the above problems Follow-Up Visit: Follow-up with Dr. Babcock's PA (Dylan Dan) 2-3 weeks after your day of surgery. He will remove your angie and answer any questions. If you have any additional questions or concerns, Dr Babcock is usually in the office at the same time and will be available An appointment was probably scheduled when you signed-up for surgery in the office. If you have any questions call Office Instructions: More detailed instructions as well as Frequently Asked Questions were provided in a folder by our office when you signed-up for surgery. Please review these instructions when you get home. If you have any further questions or concerns, please feel free to call the office at [phone] Pending Studies at Discharge: No Stand-Alone Forms: [facility], Smoking Cessation Medications and DC Order Prescriptions: New oxycodone 5 mg Tablet 5 mg PO Q4H PRN (Reason: pain) Qty: 30 RF: 0 Continued (DME) OneTouch Ultra Blue Test Strip strip See Dose Instructions .ROUTE .MEDSUPPLY Qty: 100 RF: 1 (DME) blood-glucose meter [OneTouch UltraMini] kit See Dose Instructions .ROUTE .MEDSUPPLY Qty: 1 RF: 0 (DME) lancets [OneTouch UltraSoft Lancets] misc See Dose Instructions .ROUTE .MEDSUPPLY Qty: 100 RF: 1 sildenafil 50 mg tablet 50 mg PO DAILY PRN (Reason: sexual activity) Qty: 10 RF: 0 atenolol 50 mg tablet 50 mg PO BID Qty: 180 RF: 1 meloxicam 15 mg tablet 15 mg PO QAM Qty: 90 RF: 1 simvastatin 10 mg tablet 10 mg PO HS Qty: 90 RF: 1 triamterene-hydrochlorothiazid 37.5-25 mg tablet 1 tab PO QAM Qty: 90 RF: 1 albuterol sulfate [Ventolin HFA] 90 mcg/actuation Hfa Aerosol Inhaler 1 - 2 puff INHALATION Q4 PRN (Reason: Shortness Of Breath) RF: 0 cholecalciferol (vitamin D3) [Vitamin D3] 2,000 unit Capsule 2,000 unit PO BID RF: 0 omega 7-[id number]-fish oil [Fish Oil] 1,000 mg (120 mg-180 mg) Capsule 1 cap PO BID RF: 0 Changed aspirin 81 mg Tablet,Delayed Release (Dr/Ec) 81 mg PO BID 42 Days Qty: 0 RF: 0 Discharge Orders: Discharge Order (Routine); Ordered 12/18/19 Ordered By: Dylan Babcock Admission Data Admit Date/Time: 12/17/19 08:49 Attending Provider: Dylan Babcock Admit Provider: Dylan Babcock Primary Care Provider: Sera El Coding Level of Care Code D/C Day Management <30 mins Diagnoses Status post right partial knee replacement Z96.651
[2019-12-18 06:55] LABS: BUN Creatinine Ratio 19.3 (10-20); Calcium 8.4 mg/dl (8.5-10.1); Creatinine Clr Calc Pharmacy 57.8 ml/min; Est GFR (African American) 68.4
[2019-12-18] MEDS: ATENOLOL 50 MG TABLET PO SCH (08:42)
[2019-12-18] MEDS: TRIAMTERENE/HCTZ 37.5/25MG TAB PO SCH (08:42)
[2019-12-18] MEDS: MULTIVITAMIN TAB PO SCH (08:42)
[2019-12-18] MEDS: DOCUSATE SODIUM 100 MG CAP PO SCH (08:42)
[2019-12-18] MEDS: ASPIRIN 81 MG ECTAB PO SCH (08:43)
[2019-12-18] MEDS: INSULIN ASPART 100 UNITS/ML 3 ML PEN SC SCH (08:43)
== END 2019-12-18 11:28 | disposition home health service (06) ==
LOC: 3E 05:10 → ASU 05:10

== ENCOUNTER 2020-10-31 17:50 | Inpatient (IN) ==
--- NOTE | 2020-10-31 18:24 | Emergency Department Note ---
History of Present Illness General Chief Complaint: Nausea Stated Complaint: nausea, dehydration, fatigue Time Seen by Provider: 10/31/20 18:01 History of Present Illness Provider Complaint: chest pain Onset (ago): day(s) 2 Duration: intermittent and now resolved Onset: during exertion Pain Location: substernal Pain Radiation: none Severity: mild Maximum Pain Intensity: 3 Quality: + tightness and + other (Pressure) Relieved By: + rest Exacerbated By: + exertion Context: no recent illness, no recent surgery, no recent immobilization, no rec ent travel, no trauma/injury and no history of DVT/PE Associated symptoms: + nausea and + dyspnea (With exertion); no vomiting, no d iaphoresis, no sense of impending doom, no syncope, no palpitations, no fever, no cough and no leg swelling Patient is vaccinated against COVID-19. Home Medications Medication Instructions Recorded Confirmed Type cholecalciferol (vitamin D3) 2,000 unit PO BID 08/01/18 10/31/20 History [Vitamin D3] omega [id number]-fish oil [Fish Oil] 1 cap PO BID 08/01/18 10/31/20 History blood-glucose meter #1 ea 01/24/19 07/21/20 Rx lancets #100 ea 01/24/19 07/21/20 Rx aspirin 81 mg PO BID 42 Days #0 tab 12/17/19 10/31/20 Rx blood sugar diagnostic #100 ea 06/23/20 07/21/20 Rx meloxicam 15 mg tablet 15 mg PO QAM #90 tab 06/29/20 10/31/20 Rx losartan 25 mg tablet 25 mg PO DAILY #90 tab 07/20/20 10/31/20 Rx triamterene 37.5 1 tab PO QAM #90 tab 08/19/20 10/31/20 Rx mg-hydrochlorothiazide 25 mg tablet atenolol 50 mg PO QPM 10/31/20 10/31/20 History simvastatin 10 mg PO QPM 10/31/20 10/31/20 History Allergies Allergy/AdvReac Type Severity Reaction Status Date / Time celecoxib [From Celebrex] Allergy Mild Rash Verified 10/31/20 18:44 lisinopril Allergy Mild headache/co Verified 10/31/20 18:44 ugh Past Med/Surg History Medical History Erectile dysfunction History of kidney stones Hyperlipidemia Hypertension Osteoarthritis Prediabetes Reducible right inguinal hernia Vitamin D insufficiency Surgical History History of arthroscopy of right knee History of colonoscopy History of cystoscopy History of laminectomy LUMBAR SPINE History of nasal surgery POLYPS REMOVED History of removal of cyst sebaceous cyst removed off neck History of tonsillectomy and adenoidectomy History of wisdom tooth extraction Status post right partial knee replacement (~11/2019) Family History Brother Family history of diabetes mellitus Hypertension Heart disease Mother Family history of diabetes mellitus Family hx colonic polyps Sister Breast cancer Father Myocardial infarction Heart disease Hypertension Other No family history of adverse response to anesthesia Denies family history of Ovarian cancer Prostate cancer Colorectal cancer Social History Smoking Status: Former smoker Smoking End Date: 06-26-1988; Second Hand Exposure: No; Do You Dip or Chew Tobacco: No; Hx Alcohol Use: Yes Alcohol type: beer Alcohol Intake Frequency: 2-3 x/Week Hx Substance Use: No Preferred Language: Arabic Communication Ability: Effective Picker / Packer Required: No Beliefs That Will Affect Care: None marital status: Current Living Situation: Spouse current occupational status: retired current occupation: Pharmacist Other Information That Helps Us Care for You: No Feels Safe at Home: Yes Safety Concerns: Feels Safe At This Time caffeine: Yes Dental Care, Regularly: Yes Physical Activity Frequency: 1-2 Times per Week Seatbelt Use: always Sunscreen Use: No Assistive Devices: Glasses Review of Systems A total of 10 systems reviewed and were otherwise negative Physical Exam Vital Signs Vital Signs - 24 hr 10/31/20 17:56 10/31/20 18:30 10/31/20 18:40 Temperature 37.0 C Temperature Source Temporal Artery Scan Pulse Rate 81 81 68 Pulse Rate from SpO2 Sensor 69 Pulse Rhythm Regular Respiratory Rate 18 18 16 Respiratory Effort / Characteristics Non-Labored Respiratory Depth Normal Respiratory Pattern Regular Blood Pressure 179/100 H 142/90 H Blood Pressure Mean 126 107 Blood Pressure Position Sitting Pulse Oximetry 92 92 91 Oxygen Delivery Method Room Air Room Air Sepsis Recent Fever Within 48 Hours No Sepsis New/Unexplained Change in Mental Status No Sepsis Action Taken by Nursing No Action Required 10/31/20 19:00 10/31/20 19:30 10/31/20 20:30 Temperature Temperature Source Pulse Rate 66 65 61 Pulse Rate from SpO2 Sensor 65 65 60 Pulse Rhythm Respiratory Rate 23 19 19 Respiratory Effort / Characteristics Respiratory Depth Respiratory Pattern Blood Pressure 138/77 142/83 H 129/82 Blood Pressure Mean 97 102 97 Blood Pressure Position Pulse Oximetry 92 91 94 Oxygen Delivery Method Sepsis Recent Fever Within 48 Hours Sepsis New/Unexplained Change in Mental Status Sepsis Action Taken by Nursing 10/31/20 21:00 10/31/20 21:30 10/31/20 22:00 Temperature Temperature Source Pulse Rate 61 62 65 Pulse Rate from SpO2 Sensor 61 63 65 Pulse Rhythm Respiratory Rate 19 18 22 Respiratory Effort / Characteristics Respiratory Depth Respiratory Pattern Blood Pressure 126/71 130/74 130/70 Blood Pressure Mean 89 92 90 Blood Pressure Position Pulse Oximetry 93 94 94 Oxygen Delivery Method Sepsis Recent Fever Within 48 Hours Sepsis New/Unexplained Change in Mental Status Sepsis Action Taken by Nursing Physical Exam GENERAL: He is oriented to person, place, and time. He appears well-developed and well-nourished. He does not appear distressed. HENT: Exam performed. - Head: Normocephalic and atraumatic. - Right Ear: External ear normal. No mastoid tenderness. - Left Ear: External ear normal. No mastoid tenderness. - Mouth/Throat: The oropharynx is clear and moist. No trismus in the jaw. No dental abscesses or uvula swelling. No oropharyngeal exudate or tonsillar abscesses. EYES: Conjunctivae and EOM are normal. Pupils are equal, round, and reactive to light. Right eye exhibits no discharge. Left eye exhibits no discharge. No scleral icterus. NECK: Normal range of motion. Neck supple. No JVD present. No spinous process tenderness present. No carotid bruit present. No rigidity. No tracheal deviation and normal range of motion present. No Brudzinski's sign and no Kernig's sign noted. CV: Normal rate, regular rhythm, normal heart sounds and intact distal pulses. There is no peripheral edema. Palpable radial pulses bue. PULM/CHEST: Effort normal and breath sounds normal. No respiratory distress. No stridor. He has no wheezes. He has no rales. - Chest Wall: He exhibits no tenderness. ABD: The abdomen is soft. Bowel sounds are normal. He has no distension. No mass is present. There is no tenderness. There is no rebound, no guarding, no Núñez's sign and no tenderness at McBurney's point. Rovsig negative. MUSC/SKEL: Normal range of motion. There is no peripheral edema, tenderness or deformity. LYMPH: No cervical adenopathy. NEURO: He is alert and oriented to person, place, and time. He has normal str ength. No cranial nerve deficit or sensory deficit. Coordination and gait normal. GCS eye subscore is 4. GCS verbal subscore is 5. GCS motor subscore is 6. Cerebellar tests wnl. SKIN: Skin is warm and dry. He is not diaphoretic. PSYCH: He has a normal mood and affect. Behavior is normal. Judgment and thought content normal. Course Course 1800: The patient was evaluated in room C2. A complete history and physical exam was performed Cardiac monitoring: An order was placed for continuous cardiac monitoring. The monitor shows a rate of 70 with sinus rhythm 1915: Vital signs stable. Labs show leukocytosis of 21.08 with neutrophils of 17.44. Lipase 940. Chest x-ray shows infiltrate. [facility] Rocephin IV and azithromycin. Dr. Hubbard will be notified Administered Medications Aspirin (Aspirin 81 Mg Ectab) 81 mg PO BID [facility] Stop: 12/01/20 00:00 Last Admin: 11/01/20 00:21 Dose: 81 mg Documented by: [id number] Famotidine 20 mg/ Syringe 5 mls @ 2.5 mls/min IV Q12H JEAN Stop: 12/01/20 00:00 Last Admin: 11/01/20 00:20 Dose: 2.5 mls/min Documented by: [id number] Ondansetron HCl (Ondansetron Inj 2 Mg/Ml 2 Ml Vial) 4 mg IV Q6H PRN PRN Reason: Nausea Stop: 11/30/20 23:48 Last Admin: 11/01/20 00:16 Dose: 4 mg Documented by: [id number] Vitamin D (Cholecalciferol 1,000 Units 25 Mcg Tab) 2,000 units PO BID JEAN Stop: 12/01/20 00:00 Last Admin: 11/01/20 00:47 Dose: Not Given Documented by: [id number] Discontinued Medications Azithromycin (Azithromycin 250 Mg Tab) 500 mg PO NOW ONE Stop: 10/31/20 19:14 Last Admin: 10/31/20 20:10 Dose: 500 mg Documented by: [id number] Ceftriaxone Sodium (Rocephin) 1,000 mg in 50 mls @ 100 mls/hr IV NOW STA Stop: 10/31/20 19:42 Last Infusion: 10/31/20 20:40 Dose: 0 mls/hr Documented by: [id number] Admin: 10/31/20 20:10 Dose: 100 mls/hr Documented by: [id number] Medical Decision Making Laboratory Data Result diagrams: 10/31/20 18:30 10/31/20 18:30 Labs: Lab Results 10/31/20 10/31/20 10/31/20 Range/Units 18:30 18:30 18:30 WBC 21.08 H (4.8-10.8) K/uL RBC 5.92 (4.7-6.1) M/uL Hgb 17.7 (14.0-18.0) g/dL Hct 50.0 (42-52) % MCV 84.5 (80-100) fL MCH 29.9 (25-34) pg MCHC 35.4 (32-36) g/dL RDW Std Deviation 42.6 (36.4-46.3) fL RDW Coeff of Sancho 13.8 (11.5-14.5) % Plt Count 273 (130-400) K/uL MPV 9.4 (7.4-10.4) fL Immature Gran % (Auto) 0.3 % Neut % (Auto) 82.8 % Lymph % (Auto) 7.6 % [place] % (Auto) 8.3 % Eos % (Auto) 0.9 % Baso % (Auto) 0.1 % Neut # (Auto) 17.44 H (1.4-6.5) K/uL Lymph # (Auto) 1.60 (1.2-3.4) K/uL [place] # (Auto) 1.76 H (0.11-0.59) K/uL Eos # (Auto) 0.18 (0-0.5) K/uL Baso # (Auto) 0.03 (0-0.2) K/uL Immature Gran # (Auto) 0.07 H (0.00-0.02) K/uL PT 9.7 (9.0-12.0) Seconds INR 1.0 (0.9-1.1) APTT 25.6 (21.0-31.0) Seconds PTT Ratio 1.0 Sodium (136-145) mmol/L Potassium (3.5-5.1) mmol/L Chloride (98-107) mmol/L Carbon Dioxide (21-32) mmol/L Anion Gap (3-11) BUN (7-18) mg/dl Creatinine (0.6-1.4) mg/dl Est Cr Clr Drug Dosing ml/min Est GFR ( Amer) ml/min Est GFR (Non-Af Amer) ml/min BUN/Creatinine Ratio (10-20) Glucose (70-99) mg/dl Calcium (8.5-10.1) mg/dl Total Bilirubin (0.2-1) mg/dl Direct Bilirubin (0-0.2) mg/dl AST (15-37) U/L ALT (12-78) U/L Alkaline Phosphatase (45-117) U/L Troponin I (0-0.045) ng/ml Total Protein (6.4-8.2) gm/dl Albumin (3.4-5.0) gm/dl Lipase (73-393) U/L Anaplasma Smear See Comment Lyme Disease IgG Ab Negative (Negative) Lyme Disease IgM Ab Negative (Negative) COVID-19 Eval Order SARS-CoV-2 (PCR) (Negative) 10/31/20 10/31/20 10/31/20 Range/Units 18:30 18:30 20:14 WBC (4.8-10.8) K/uL RBC (4.7-6.1) M/uL Hgb (14.0-18.0) g/dL Hct (42-52) % MCV (80-100) fL MCH (25-34) pg MCHC (32-36) g/dL RDW Std Deviation (36.4-46.3) fL RDW Coeff of Sancho (11.5-14.5) % Plt Count (130-400) K/uL MPV (7.4-10.4) fL Immature Gran % (Auto) % Neut % (Auto) % Lymph % (Auto) % [place] % (Auto) % Eos % (Auto) % Baso % (Auto) % Neut # (Auto) (1.4-6.5) K/uL Lymph # (Auto) (1.2-3.4) K/uL [place] # (Auto) (0.11-0.59) K/uL Eos # (Auto) (0-0.5) K/uL Baso # (Auto) (0-0.2) K/uL Immature Gran # (Auto) (0.00-0.02) K/uL PT (9.0-12.0) Seconds INR (0.9-1.1) APTT (21.0-31.0) Seconds PTT Ratio Sodium 137 (136-145) mmol/L Potassium 3.7 (3.5-5.1) mmol/L Chloride 104 (98-107) mmol/L Carbon Dioxide 27 (21-32) mmol/L Anion Gap 6.0 (3-11) BUN 14 (7-18) mg/dl Creatinine 1.06 (0.6-1.4) mg/dl Est Cr Clr Drug Dosing 64.5 ml/min Est GFR ( Amer) 79.7 ml/min Est GFR (Non-Af Amer) 68.8 ml/min BUN/Creatinine Ratio 12.7 (10-20) Glucose 141 H (70-99) mg/dl Calcium 9.7 (8.5-10.1) mg/dl Total Bilirubin 0.6 (0.2-1) mg/dl Direct Bilirubin 0.1 (0-0.2) mg/dl AST 20 (15-37) U/L ALT 40 (12-78) U/L Alkaline Phosphatase 51 (45-117) U/L Troponin I < 0.015 (0-0.045) ng/ml Total Protein 7.6 (6.4-8.2) gm/dl Albumin 4.0 (3.4-5.0) gm/dl Lipase 940 H (73-393) U/L Anaplasma Smear Lyme Disease IgG Ab (Negative) Lyme Disease IgM Ab (Negative) COVID-19 Eval Order Covid19 at [facility] SARS-CoV-2 (PCR) (Negative) 10/31/20 Range/Units 20:14 WBC (4.8-10.8) K/uL RBC (4.7-6.1) M/uL Hgb (14.0-18.0) g/dL Hct (42-52) % MCV (80-100) fL MCH (25-34) pg MCHC (32-36) g/dL RDW Std Deviation (36.4-46.3) fL RDW Coeff of Sancho (11.5-14.5) % Plt Count (130-400) K/uL MPV (7.4-10.4) fL Immature Gran % (Auto) % Neut % (Auto) % Lymph % (Auto) % [place] % (Auto) % Eos % (Auto) % Baso % (Auto) % Neut # (Auto) (1.4-6.5) K/uL Lymph # (Auto) (1.2-3.4) K/uL [place] # (Auto) (0.11-0.59) K/uL Eos # (Auto) (0-0.5) K/uL Baso # (Auto) (0-0.2) K/uL Immature Gran # (Auto) (0.00-0.02) K/uL PT (9.0-12.0) Seconds INR (0.9-1.1) APTT (21.0-31.0) Seconds PTT Ratio Sodium (136-145) mmol/L Potassium (3.5-5.1) mmol/L Chloride (98-107) mmol/L Carbon Dioxide (21-32) mmol/L Anion Gap (3-11) BUN (7-18) mg/dl Creatinine (0.6-1.4) mg/dl Est Cr Clr Drug Dosing ml/min Est GFR ( Amer) ml/min Est GFR (Non-Af Amer) ml/min BUN/Creatinine Ratio (10-20) Glucose (70-99) mg/dl Calcium (8.5-10.1) mg/dl Total Bilirubin (0.2-1) mg/dl Direct Bilirubin (0-0.2) mg/dl AST (15-37) U/L ALT (12-78) U/L Alkaline Phosphatase (45-117) U/L Troponin I (0-0.045) ng/ml Total Protein (6.4-8.2) gm/dl Albumin (3.4-5.0) gm/dl Lipase (73-393) U/L Anaplasma Smear Lyme Disease IgG Ab (Negative) Lyme Disease IgM Ab (Negative) COVID-19 Eval Order SARS-CoV-2 (PCR) NEGATIVE (Negative) Imaging Data Chest x-ray: Radiologist's impression: Chest X-Ray 10/31/20 18:13 XR chest 1V portable CLINICAL HISTORY: Atypical chest pain COMPARISON STUDY: 11/20/2019 FINDINGS: The heart is mildly enlarged. There is no failure. There are no pleural effusions. There is a vague opacity at the left medial lung base, possibly representing a summation. A PA and lateral chest x-ray is recommended in follow-up. IMPRESSION: 1. Very opacity at the left medial lung base. A PA and lateral study is recommended in follow-up ACT 112: Negative or not required by law. Electronically signed by: Eriberto Nair M.D. 10/31/2020 7:02 PM ECG Data Indication: chest pain and nausea Rate (beats per minute): 73 Rhythm: normal sinus Findings: no ST depression, no ST elevation and no prolonged QT MDM Narrative Vital signs stable. Labs show leukocytosis of 21.08 with neutrophils of 17.44. Lipase 940. Chest x-ray shows infiltrate. [facility] with Rocephin IV and azithromycin. Dr. Hubbard will be notified Impression & Plan Pneumonia Discharge Plan Visit Data Chief Complaint: Nausea Stated Complaint: nausea, dehydration, fatigue ED Provider: Rikki Cooper Discharge Problem: Pneumonia Patient Disposition: Admitted As Inpatient Discharge Instructions Interventions: ED Discharge Assessment Last Done: 10/31/20 23:19 Discharge Problem: Pneumonia Qualifiers: Pneumonia type: due to unspecified organism Laterality: left Lung location: lower lobe of lung Qualified Code(s): J18.9 - Pneumonia, unspecified organism
[2020-10-31 18:45] LABS: Basophils # (auto) 0.03 K/uL (0-0.2); Basophils % (auto) 0.1 %; Eosinophils # (auto) 0.18 K/uL (0-0.5); Eosinophils % (auto) 0.9 %; Hemoglobin 17.7 g/dL (14.0-18.0); Immature Granulocytes # (auto) 0.07 K/uL (0.00-0.02); Immature Granulocytes % (auto) 0.3 %; Lymphocytes % (auto) 7.6 %; Mean Corpuscular Hemoglobin 29.9 pg (25-34); Mean Corpuscular Hgb Conc 35.4 g/dL (32-36); Mean Corpuscular Volume 84.5 fL (80-100); Mean Platelet Volume 9.4 fL (7.4-10.4); Monocytes # (auto) 1.76 K/uL (0.11-0.59); Monocytes % (auto) 8.3 %; Neutrophils # (auto) 17.44 K/uL (1.4-6.5); Neutrophils % (auto) 82.8 %; Platelet Count 273 K/uL (130-400); RDW Coefficient of Variation 13.8 % (11.5-14.5); RDW Standard Deviation 42.6 fL (36.4-46.3); Red Blood Count 5.92 M/uL (4.7-6.1); White Blood Count 21.08 K/uL (4.8-10.8)
[2020-10-31 18:57] LABS: Partial Thromboplastin Time 25.6 Seconds (21.0-31.0); Prothrombin Time 9.7 Seconds (9.0-12.0)
[2020-10-31 19:01] LABS: BUN Creatinine Ratio 12.7 (10-20); Blood Urea Nitrogen 14 mg/dl (7-18); Calcium 9.7 mg/dl (8.5-10.1); Carbon Dioxide 27 mmol/L (21-32); Chloride 104 mmol/L (98-107); Creatinine Clr Calc Pharmacy 64.5 ml/min; Est GFR (African American) 79.7 ml/min; Est GFR (Non-African American) 68.8 ml/min; Glucose 141 mg/dl (70-99); Lipase 940 U/L (73-393); Potassium 3.7 mmol/L (3.5-5.1); Sodium 137 mmol/L (136-145)
[2020-10-31 19:03] LABS: Bilirubin Direct 0.1 mg/dl (0-0.2); Bilirubin,Total 0.6 mg/dl (0.2-1); Total Protein 7.6 gm/dl (6.4-8.2)
--- NOTE | 2020-10-31 19:03 | XRay Report ---
XR chest 1V portable CLINICAL HISTORY: Atypical chest pain COMPARISON STUDY: 11/20/2019 FINDINGS: The heart is mildly enlarged. There is no failure. There are no pleural effusions. There is a vague opacity at the left medial lung base, possibly representing a summation. A PA and lateral ch est x-ray is recommended in follow-up. IMPRESSION: 1. Very opacity at the left medial lung base. A PA and lateral study is recommended in follow-up ACT 112: Negative or not required by law. Electronically signed by: Eriberto Nair M.D. 10/31/2020 7:02 PM
[2020-10-31 19:06] LABS: Troponin I < 0.015 ng/ml (0-0.045)
[2020-10-31] MEDS ORDERED: cefTRIAXone SODIUM 1,000 MG/50 ML BAG IV STA (19:13)
[2020-10-31] MEDS ORDERED: AZITHROMYCIN 250 MG TAB PO ONE (19:13)
[2020-10-31 21:38] LABS: Lyme Ab IgG w/WB Rflx Negative (Negative); Lyme Ab IgM w/WB Rflx Negative (Negative)
--- NOTE | 2020-10-31 22:39 | History & Physical Report ---
Date of Service October 31, 2020 Assessment & Plan (1) Left lower lobe consolidation: CT scan of chest without contrast shows medial anterior left lower lobe masslike consolidation with peribronchial thickening and obstructive bronchus. CT abdomen and pelvis without acute findings Duonebs every 4 hours while awake and every 2 hours when necessary. Patient was initially given dosages of ceftriaxone 2 g IV, and then a azithromycin 500 mg IV. However, after the above late CT reading, patient was instead placed on Zosyn 4.5 g IV every 8 hours Guaifenesin extended release 600 mg p.o. twice daily Patient may require a pulmonology consult for possible bronchoscopy if is not clear with the above treatment Present on Admission?: Yes (2) Diabetes mellitus: On no overt treatment at this time. Glucose was 141 upon admission Check hemoglobin A1c Placed on Accu-Cheks before meals and at bedtime with NovoLog coverage per scale Present on Admission?: Yes (3) Hyperlipidemia: Continue simvastatin 10 mg daily Present on Admission?: Yes (4) HTN (hypertension): The patient will be admitted to telemetry for serial cardiac enzymes, serial EKG's, cardiac rhythm monitoring and a 2-D echocardiogram with Dopplers. Continue atenolol 50 mg daily, losartan 25 mg daily. Hold triamterene/HCTZ We will follow rule out [place] protocol, since concern is there regarding symptom of nausea being that of an anginal equivalent Present on Admission?: Yes (5) Nausea: Lipase upon admission 940. CT of abdomen and pelvis did not show any signs of pancreatitis. Placing on famotidine 20 mg IV every 12 hours Repeat lipase in a.m. Present on Admission?: Yes History of Present Illness Chief Complaint: The patient presents to the emergency department with complaint of intermittent nausea over the past 3 days, and substernal chest pressure that began 24 hours ago when he and another 70-year-old male lifted a 200 pound object Primary Care Provider: Sera El MD The patient is a 75-year-old male with a past medical history including diabetes mellitus, hyperlipidemia, hypertension, hemorrhoids, reducible right inguinal hernia, tick bite, vitamin D deficiency, erectile dysfunction and colonic diverticulosis. He presents to the emergency department symptoms as noted above and then was referred for evaluation for admission after chest x-ray showed a possible left lower lobe retrocardiac infiltrate. He received from the emergency department ceftriaxone IV and azithromycin IV. Allergies Allergy/AdvReac Type Severity Reaction Status Date / Time celecoxib [From Celebrex] Allergy Mild Rash Verified 10/31/20 18:44 lisinopril Allergy Mild headache/co Verified 10/31/20 18:44 ugh Home Medications Medication Instructions Recorded Confirmed Type cholecalciferol (vitamin D3) 2,000 unit PO BID 08/01/18 10/31/20 History [Vitamin D3] omega 8-qnc-vaj-fish oil [Fish Oil] 1 cap PO BID 08/01/18 10/31/20 History blood-glucose meter #1 ea 01/24/19 07/21/20 Rx lancets #100 ea 01/24/19 07/21/20 Rx aspirin 81 mg PO BID 42 Days #0 tab 12/17/19 10/31/20 Rx blood sugar diagnostic #100 ea 06/23/20 07/21/20 Rx meloxicam 15 mg tablet 15 mg PO QAM #90 tab 06/29/20 10/31/20 Rx losartan 25 mg tablet 25 mg PO DAILY #90 tab 07/20/20 10/31/20 Rx triamterene 37.5 1 tab PO QAM #90 tab 08/19/20 10/31/20 Rx mg-hydrochlorothiazide 25 mg tablet atenolol 50 mg PO QPM 10/31/20 10/31/20 History simvastatin 10 mg PO QPM 10/31/20 10/31/20 History Past Med/Surg History Medical History Erectile dysfunction History of kidney stones Hyperlipidemia Hypertension Osteoarthritis Prediabetes Reducible right inguinal hernia Vitamin D insufficiency Surgical History History of arthroscopy of right knee History of colonoscopy History of cystoscopy History of laminectomy LUMBAR SPINE History of nasal surgery POLYPS REMOVED History of removal of cyst sebaceous cyst removed off neck History of tonsillectomy and adenoidectomy History of wisdom tooth extraction Status post right partial knee replacement (~11/2019) Family History Brother Family history of diabetes mellitus Hypertension Heart disease Mother Family history of diabetes mellitus Family hx colonic polyps Sister Breast cancer Father Myocardial infarction Heart disease Hypertension Other No family history of adverse response to anesthesia Denies family history of Ovarian cancer Prostate cancer Colorectal cancer Social History Smoking Status: Former smoker Smoking End Date: 06-26-1988; Second Hand Exposure: No; Do You Dip or Chew Tobacco: No; Hx Alcohol Use: Yes Alcohol type: beer Alcohol Intake Frequency: 2-3 x/Week Hx Substance Use: No Preferred Language: Sami Communication Ability: Effective Yarn Man Required: No Beliefs That Will Affect Care: None marital status: Current Living Situation: Spouse current occupational status: retired current occupation: Pharmacist Other Information That Helps Us Care for You: No Feels Safe at Home: Yes Safety Concerns: Feels Safe At This Time caffeine: Yes Dental Care, Regularly: Yes Physical Activity Frequency: 1-2 Times per Week Seatbelt Use: always Sunscreen Use: No Assistive Devices: Glasses Review of Systems Review of Systems: The patient denies palpitations, shortness of breath, dyspnea on exertion, cough, lower extremity swelling, sore throat, fevers, chills, sweats, vomiting, diarrhea , constipation, abdominal pain, pelvic pain, blood in urine or stool, dysuria, urinary frequency or urgency, lightheadedness, dizziness, headache, memory loss, loss of consciousness, rash, abnormal bruising or bleeding, imbalance, focal or generalized weakness, numbness or tingling in arms or legs, generalized arthralgias or myalgias, back or neck pain, or night sweats. The review of systems is otherwise negative other than for that already noted above, and at least 10 systems have been reviewed. Physical Exam Physical Exam: The patient is awake, alert and oriented 3, well developed and well nourished, normocephalic and atraumatic, lying in bed and in no acute distress. HEENT--PERRL, EOMI, mucous membranes and oropharynx normal Neck--supple. No JVD. No bruits. Thyroid normal, trachea midline, no adenopathy. Heart--normal S1 and S2. No murmurs, rubs or gallops. Lungs-- decreased breath sounds left base. No respiratory distress, no acc essory muscle use. Abdomen--normal bowel sounds and soft. Nontender. Nondistended Extremities--no cyanosis or clubbing. No edema. Dermatologic--normal skin turgor, normal color, no abnormal lymph nodes, no rash. Neurologic--cranial nerves II through XII grossly intact. Rheumatologic--normal range of motion. Psychiatric--normal affect. Results & Data Results & Data ([facility]) Vital Signs (Past 12 Hours) Vital Signs Temp Pulse Resp BP Pulse Ox 10/31/20 22:00 65 22 130/70 94 10/31/20 21:30 62 18 130/74 94 10/31/20 21:00 61 19 126/71 93 10/31/20 20:30 61 19 129/82 94 10/31/20 19:30 65 19 142/83 H 91 10/31/20 19:00 66 23 138/77 92 10/31/20 18:40 68 16 142/90 H 91 10/31/20 18:30 81 18 92 10/31/20 17:56 98.6 F 81 18 179/100 H 92 Laboratory Results Laboratory Results WBC 21.08 K/uL (4.8-10.8) H 10/31/20 18:30 RBC 5.92 M/uL (4.7-6.1) 10/31/20 18:30 Hgb 17.7 g/dL (14.0-18.0) 10/31/20 18:30 Hct 50.0 % (42-52) 10/31/20 18:30 MCV 84.5 fL (80-100) 10/31/20 18:30 MCH 29.9 pg (25-34) 10/31/20 18:30 MCHC 35.4 g/dL (32-36) 10/31/20 18:30 RDW Std Deviation 42.6 fL (36.4-46.3) 10/31/20 18:30 RDW Coeff of Sancho 13.8 % (11.5-14.5) 10/31/20 18:30 Plt Count 273 K/uL (130-400) 10/31/20 18:30 MPV 9.4 fL (7.4-10.4) 10/31/20 18:30 Immature Gran % (Auto) 0.3 % 10/31/20 18:30 Neut % (Auto) 82.8 % 10/31/20 18:30 Lymph % (Auto) 7.6 % 10/31/20 18:30 Preble % (Auto) 8.3 % 10/31/20 18:30 Eos % (Auto) 0.9 % 10/31/20 18:30 Baso % (Auto) 0.1 % 10/31/20 18:30 Neut # (Auto) 17.44 K/uL (1.4-6.5) H 10/31/20 18:30 Lymph # (Auto) 1.60 K/uL (1.2-3.4) 10/31/20 18:30 Preble # (Auto) 1.76 K/uL (0.11-0.59) H 10/31/20 18:30 Eos # (Auto) 0.18 K/uL (0-0.5) 10/31/20 18:30 Baso # (Auto) 0.03 K/uL (0-0.2) 10/31/20 18:30 Immature Gran # (Auto) 0.07 K/uL (0.00-0.02) H 10/31/20 18:30 PT 9.7 Seconds (9.0-12.0) 10/31/20 18:30 INR 1.0 (0.9-1.1) 10/31/20 18:30 APTT 25.6 Seconds (21.0-31.0) 10/31/20 18:30 PTT Ratio 1.0 10/31/20 18:30 Sodium 137 mmol/L (136-145) 10/31/20 18:30 Potassium 3.7 mmol/L (3.5-5.1) 10/31/20 18:30 Chloride 104 mmol/L (98-107) 10/31/20 18:30 Carbon Dioxide 27 mmol/L (21-32) 10/31/20 18:30 Anion Gap 6.0 (3-11) 10/31/20 18:30 BUN 14 mg/dl (7-18) 10/31/20 18:30 Creatinine 1.06 mg/dl (0.6-1.4) 10/31/20 18:30 Est Cr Clr Drug Dosing 64.5 ml/min 10/31/20 18:30 Est GFR ( Amer) 79.7 ml/min 10/31/20 18:30 Est GFR (Non-Af Amer) 68.8 ml/min 10/31/20 18:30 BUN/Creatinine Ratio 12.7 (10-20) 10/31/20 18:30 Glucose 141 mg/dl (70-99) H 10/31/20 18:30 POC Glucose 127 mg/dl (70-99) H 11/01/20 00:14 Calcium 9.7 mg/dl (8.5-10.1) 10/31/20 18:30 Total Bilirubin 0.6 mg/dl (0.2-1) 10/31/20 18:30 Direct Bilirubin 0.1 mg/dl (0-0.2) 10/31/20 18:30 AST 20 U/L (15-37) 10/31/20 18:30 ALT 40 U/L (12-78) 10/31/20 18:30 Alkaline Phosphatase 51 U/L (45-117) 10/31/20 18:30 Troponin I < 0.015 ng/ml (0-0.045) 10/31/20 18:30 Total Protein 7.6 gm/dl (6.4-8.2) 10/31/20 18:30 Albumin 4.0 gm/dl (3.4-5.0) 10/31/20 18:30 Lipase 940 U/L (73-393) H 10/31/20 18:30 Anaplasma Smear See Comment 10/31/20 18:30 Lyme Disease IgG Ab Negative (Negative) 10/31/20 18:30 Lyme Disease IgM Ab Negative (Negative) 10/31/20 18:30 COVID-19 Eval Order Covid19 at [facility] 10/31/20 20:14 SARS-CoV-2 (PCR) NEGATIVE (Negative) 10/31/20 20:14 Impressions Chest X-Ray 10/31/20 18:13 XR chest 1V portable CLINICAL HISTORY: Atypical chest pain COMPARISON STUDY: 11/20/2019 FINDINGS: The heart is mildly enlarged. There is no failure. There are no pleural effusions. There is a vague opacity at the left medial lung base, possibly representing a summation. A PA and lateral chest x-ray is recommended in follow-up. IMPRESSION: 1. Very opacity at the left medial lung base. A PA and lateral study is recommended in follow-up ACT 112: Negative or not required by law. Electronically signed by: Eriberto Nair M.D. 10/31/2020 7:02 PM Diagnostic Findings [facility] Patient: BENITEZ CISNEROS (Male) : 47 Status: ER Date: 10/31/20 22:27 Room #: History: lll infiltratwe hypoxia Slices: [id number] Priors: Tech: Derik Rodriguez @ [phone] Exams: CT CHEST Without Contrast Contrast: Accession Numbers: [id number] Preliminary Findings Only See Final Report For Complete Findings CT CHEST Without Contrast: Mild calcification at the aortic root and mitral valve. Mild diffuse fatty infiltration of liver. anterior subpleural right middle lobe 4.8 mm nodule. Medial anterior left lower lobe masslike consolidation with mild peribronchial thickening and obstructed bronchus. Radiologist: Florida Ashby MD Study ready at 22:31 and initial results transmitted at 22:49 *This report constitutes a preliminary interpretation only. Non-acute findings felt to be unrelated to the clinical presentation may not be discussed in this report. The study will be interpreted and a final report will be generated by the local Radiologist the following shift. To reach the hospital radiology department call [phone]. If a discrepancy is found between the preliminary and final interpretations of this study, please notify us via our Client Portal at [email or web address] can also fax this report with a description of the discrepancy, or include the final report, to our daytime fax number [phone].If faxing, please indicate the severity of discrepancy using one of the following categories: [ ] 1 - Agree/Informational [ ] 2 - Unlikely to Affect Management [ ] 3 - Possible Eventual Change of Management [ ] 4 - Probable Immediate Change of Management For all other patient related information, please fax us at [phone]. [id number] [facility] Patient: BENITEZ CISNEROS (Male) : 47 Status: ER Date: 10/31/20 22:28 Room #: History: nausea, abdominal discomfort, increasing girth Slices: 755 Priors: Tech: Derik Rodriguez @ [phone] Exams: CT ABDOMEN & PELVIS Without Contrast Contrast: Accession Numbers: [id number] Preliminary Findings Only See Final Report For Complete Findings CT ABDOMEN & PELVIS Without Contrast: Mild diffuse fatty liver. Medial duodenal hernia measuring 2.7 x 3.2 cm. Sigmoid and left-sided diverticulosis. Negative for diverticulitis. Right greater than left bilateral fat containing inguinal hernia. 2 cm periumbilical fat containing hernia. Lower lumbar spine degenerative disc disease and disc space narrowing. Radiologist: Florida Ashby MD Study ready at 22:31 and initial results transmitted at 22:53 *This report constitutes a preliminary interpretation only. Non-acute findings felt to be unrelated to the clinical presentation may not be discussed in this report. The study will be interpreted and a final report will be generated by the local Radiologist the following shift. To reach the hospital radiology department call [phone]. If a discrepancy is found between the preliminary and final interpretations of this study, please notify us via our Client Portal at [email or web address] can also fax this report with a description of the discrepancy, or include the final report, to our daytime fax number [phone].If faxing, please indicate the severity of discrepancy using one of the following categories: [ ] 1 - Agree/Informational [ ] 2 - Unlikely to Affect Management [ ] 3 - Possible Eventual Change of Management [ ] 4 - Probable Immediate Change of Management For all other patient related information, please fax us at [phone]. [id number] Code Status & VTE Plan Code Status full code VTE Prophylaxis Plan VTE Prophylaxis will be ordered: Yes PG Care Time/CCT Total # of Minutes Spent Total Time Spent with Patient: Total time spent is greater than 50% in coordination of care (as documented) at patient's floor/unit and/or counseling patient: Coding Level of Care Code 20893 Initial Inpt Care Lvl 3 Diagnoses Left lower lobe consolidation J18.1 Diabetes mellitus E11.9 Hyperlipidemia E78.5 HTN (hypertension) I10 Nausea R11.0
[2020-10-31] MEDS ORDERED: NITROGLYCERIN SL 0.4 MG/TAB TAB SL PRN (23:49)
[2020-10-31] MEDS ORDERED: CARBOHYDRATES FOR HYPOGLYCEMIA PO PRN (23:49)
[2020-10-31] MEDS ORDERED: GLUCAGON FOR INJ 1 MG VIAL SQ PRN (23:49)
[2020-10-31] MEDS ORDERED: ONDANSETRON INJ 2 MG/ML 2 ML VIAL IV PRN (23:49)
[2020-10-31] MEDS ORDERED: GLUCOSE 10 TABS/TUBE PO PRN (23:49)
[2020-10-31] MEDS ORDERED: ACETAMINOPHEN 325 MG TAB PO PRN (23:49)
[2020-10-31] MEDS ORDERED: DEXTROSE 50% 50 ML SYRINGE IV PRN (23:49)
[2020-10-31] MEDS ORDERED: GLUCOSE 40% GEL 15 GM TUBE PO PRN (23:49)
[2020-11-01] MEDS ORDERED: ASPIRIN 81 MG ECTAB PO SCH
[2020-11-01] MEDS ORDERED: FAMOTIDINE 20 MG in SYRINGE 3 ML IV SCH
[2020-11-01] MEDS: CHOLECALCIFEROL 1,000 UNITS 25 MCG TAB PO SCH ×2 (00:47→07:27)
[2020-11-01] MEDS ORDERED: PIPERACILL/TAZOBAC CONSULT ACTIVE PRN (02:53)
[2020-11-01] MEDS ORDERED: PIPERACILLIN/TAZOBACTAM 4.5 GM in DEXTROSE 5% 100 ML IV STA (02:56)
[2020-11-01 05:52] LABS: Basophils # (auto) 0.04 K/uL (0-0.2); Basophils % (auto) 0.2 %; Eosinophils # (auto) 0.08 K/uL (0-0.5); Eosinophils % (auto) 0.4 %; Hematocrit (blood only) 48.2 % (42-52); Hemoglobin 16.7 g/dL (14.0-18.0); Immature Granulocytes # (auto) 0.05 K/uL (0.00-0.02); Immature Granulocytes % (auto) 0.2 %; Lymphocytes # (auto) 1.74 K/uL (1.2-3.4); Lymphocytes % (auto) 8.1 %; Mean Corpuscular Hemoglobin 29.8 pg (25-34); Mean Corpuscular Hgb Conc 34.6 g/dL (32-36); Mean Corpuscular Volume 86.1 fL (80-100); Mean Platelet Volume 9.2 fL (7.4-10.4); Monocytes # (auto) 2.47 K/uL (0.11-0.59); Monocytes % (auto) 11.5 %; Neutrophils % (auto) 79.6 %; Platelet Count 265 K/uL (130-400); RDW Coefficient of Variation 14.1 % (11.5-14.5); RDW Standard Deviation 44.5 fL (36.4-46.3); White Blood Count 21.48 K/uL (4.8-10.8)
[2020-11-01 06:15] LABS: Alanine Aminotransferase 31 U/L (12-78); Albumin Level 3.5 gm/dl (3.4-5.0); Aspartate Aminotransferase 14 U/L (15-37); BUN Creatinine Ratio 12.6 (10-20); Blood Urea Nitrogen 14 mg/dl (7-18); Calcium 9.1 mg/dl (8.5-10.1); Carbon Dioxide 25 mmol/L (21-32); Chloride 102 mmol/L (98-107); Creatinine Clr Calc Pharmacy 59.8 ml/min; Glucose 150 mg/dl (70-99); Lipase 108 U/L (73-393); Potassium 3.8 mmol/L (3.5-5.1); Sodium 135 mmol/L (136-145)
[2020-11-01 06:31] LABS: Alkaline Phosphatase 43 U/L (45-117); Bilirubin,Total 1.3 mg/dl (0.2-1); Globulin 3.4 gm/dl (2.5-4.0); Total Protein 6.9 gm/dl (6.4-8.2); Troponin I < 0.015 ng/ml (0-0.045)
[2020-11-01] MEDS ORDERED: ALBUT/IPRATROP 3MG/0.5MG NEB 3 ML VIAL NEB SCH (07:00)
[2020-11-01] MEDS ORDERED: INSULIN ASPART 100 UNITS/ML 3 ML PEN SC SCH (07:30)
--- NOTE | 2020-11-01 07:52 | CT Scan Report ---
CT SCAN OF THE ABDOMEN AND PELVIS WITHOUT CONTRAST CLINICAL HISTORY: nausea, abdominal discomfort, increasing girth COMPARISON STUDY: No previous studies for comparison. TECHNIQUE: CT scan of the abdomen and pelvis was performed from the lung bases to the proximal femurs . Images are reviewed in the axial, sagittal, and coronal planes. IV contrast was not administered fo r this examination. A dose lowering technique was utilized adhering to the principles of ALARA. CT DOSE: FINDINGS: Lower chest: There is a 6.2 mm subpleural right middle lobe pulmonary nodule. There is a 6.8 cm area of masslike consolidation within the left lower lobe, likely representing a pneumonia. A short-term f ollow-up study is recommended to confirm resolution. Liver: There is mild hepatic steatosis. No focal masses are visualized in this noncontrast study. Gallbladder: Unremarkable. Spleen: Normal in size and attenuation. Pancreas: Unremarkable. Adrenal glands: Unremarkable. Kidneys: No renal, ureteral, or bladder calculi are visualized. Bowel: There are no transition zones indicate bowel obstruction. There is colonic diverticulosis. The re is no evidence of acute diverticulitis. There is a large duodenal diverticulum. There is no eviden ce of acute appendicitis. Peritoneum: There is no intraperitoneal free air or abdominal ascites. There is a small fat-containin g umbilical hernia. There are small fat-containing inguinal hernias. Vasculature: The abdominal aorta is normal in course and caliber. Adenopathy: None. Pelvic viscera: The bladder, and pelvic viscera are unremarkable. Skeletal structures: No destructive osseous lesions are seen. IMPRESSION: 1. No evidence of bowel obstruction. No evidence of free air 2. No evidence of acute appendicitis. No evidence of acute diverticulitis. 3. No renal, ureteral, or bladder calculi identified 4. Focal pulmonary consolidation within the left lower lobe suspicious for pneumonia. Short-term radi ographic follow-up recommended. 5. 6.2 mm subpleural right middle lobe pulmonary nodule. 6. Large duodenal diverticulum 7. Hepatic steatosis Please refer to below summary of Fleischner criteria recommendations for follow-up of incidental CT n odules (Raul Cox, Guidelines for management of small pulmonary nodules detected on CT scans: A sta tement from the Fleischner Society, Radiology 237: [phone].) SOLID NODULES Solitary nodule size: <6 mm * low risk patients: no follow-up needed * high risk patients: optional CT at 12 months Solitary nodule size: 6-8 mm * low risk patients: follow-up at 6-12 months, then consider further follow-up at 18-24 months * high risk patients: initial follow-up CT at 6-12 months and then at 18-24 months if no change Solitary nodule size: >8 mm * either low or high risk patients - consider follow-up CT at 3 months, and/or CT-PET, and/or biopsy Multiple nodules size: <6 mm * low risk patients: no routine follow-up * high risk patients: optional CT at 12 months Multiple nodules size: 6-8 mm * low risk patients: follow-up at 3-6 months, then consider further follow-up at 18-24 months * high risk patients: follow-up at 3-6 months, then at 18-24 months if no change Multiple nodules size: >8 mm * low risk patients: follow-up at 3-6 months, then consider further follow-up at 18-24 months * high risk patients: follow-up at 3-6 months, then at 18-24 months if no change Note: newly detected indeterminate nodule in persons 35 years of age or older. * low risk patients: minimal or absent history of smoking and/or other known risk factors * high risk patients: history of smoking or of other known risk factors (e.g. first degree relative with lung cancer, or exposure to asbestos, radon, uranium) * if a nodule up to 8 mm is partly solid or is ground glass further follow-up is required after 24 m onths to exclude possible slow growing adenocarcinoma (REANNA) SUBSOLID NODULES Solitary pure ground-glass nodule * nodule size <6 mm - no CT follow-up required * nodule size >=6 mm - follow-up CT at 6-12 months, then every 2 years until 5 years Solitary part-solid nodule * nodule size <6 mm - no CT follow-up required * nodule size >=6 mm - follow-up CT at 3-6 months. If unchanged, and solid component remains <6 mm, then annual follow-up for 5 years Multiple subsolid nodules * nodule size <6 mm - follow-up CT at 3-6 months, consider further follow-up at 2 and 4 years if sta ble * nodule size >=6 mm - follow-up CT at 3-6 months, subsequent management based on the most suspiciou s nodule(s) ACT 112: Negative or not required by law. Electronically signed by: Eriberto Nair M.D. 11/01/2020 7:51 AM
[2020-11-01] MEDS ORDERED: PIPERACILLIN/TAZOBACTAM 3.375 GM in DEXTROSE 5% 100 ML IV SCH (08:00)
[2020-11-01] MEDS ORDERED: LOSARTAN POTASSIUM 25 MG TAB PO SCH (09:00)
[2020-11-01] MEDS ORDERED: MELOXICAM 7.5 MG TAB PO SCH (09:00)
[2020-11-01] MEDS ORDERED: OMEGA-3 (PURIFIED FISH OIL) 1 GM CAP PO SCH (09:00)
--- NOTE | 2020-11-01 09:22 | CT Scan Report ---
CT OF THE CHEST WITHOUT IV CONTRAST CLINICAL HISTORY: LLL infiltrate, hypoxia COMPARISON STUDY: Chest radiograph October 31, 2020. CT DOSE: 1160.77 mGy.cm TECHNIQUE: Axial images of the chest were obtained without IV contrast. Images were reviewed in the axial, sagittal, and coronal planes. IV contrast was not administered for this examination. Automat ed exposure control was utilized for the study. A dose lowering technique was utilized adhering to t he principles of ALARA. FINDINGS: No enlarged hilar or axillary lymph nodes are noted. There are few prominent paraesophagea l/para-aortic lymph nodes that measure up to 1 cm in short axis diameter. There is no pericardial eff usion. Cardiac size is at the upper limits of normal. No pericardial effusion is noted. There is no p neumothorax or pleural effusion is noted as made of a 7.5 x 4.2 cm focus of consolidation within the anterior basal segment of the left lower lobe. There is no cavitation. No central obstructing mass is noted. There is a 7 mm subpleural right middle lobe nodule on image 168. Abdomen and pelvis will be reported separately. IMPRESSION: 1. 7.5 x 4.2 cm focus of consolidation within the anterior basal segment of the left lower lobe. This favors pneumonia. A follow-up chest CT in 3 months to ensure resolution is recommended to exclude th e less likely possibility of underlying mass. 2. A few prominent paraesophageal/paraaortic lymph nodes can be assessed on follow-up chest CT. 3. 7 mm subpleural right middle lobe nodule. This is likely benign but can be assessed on subsequent CT as well. ACT 112: Negative or not required by law. Electronically signed by: Gianluca Maradiaga M.D. 11/01/2020 9:20 AM
--- NOTE | 2020-11-01 09:42 | Electrocardiogram Report ---
Test Reason : Blood Pressure : / mmHG Vent. Rate : 073 BPM Atrial Rate : 073 BPM P-R Int : 182 ms QRS Dur : 096 ms QT Int : 382 ms P-R-T Axes : 037 -10 033 degrees QTc Int : 420 ms Normal sinus rhythm Normal ECG When compared with ECG of 20-NOV-2019 10:01, Vent. rate has increased BY 27 BPM Confirmed by Jimmie Ruiz ([id number]) on 11/01/2020 9:41:59 AM Referred By: REFERRED SELF Confirmed By:Jimmie Ruiz
--- NOTE | 2020-11-01 10:05 | Electrocardiogram Report ---
Test Reason : Blood Pressure : / mmHG Vent. Rate : 070 BPM Atrial Rate : 070 BPM P-R Int : 208 ms QRS Dur : 094 ms QT Int : 410 ms P-R-T Axes : 033 -06 018 degrees QTc Int : 442 ms Sinus rhythm Possible Inferior infarct , age undetermined Abnormal ECG When compared with ECG of 31-OCT-2020 18:04, (unconfirmed) No significant change was found Confirmed by Jimmie Ruiz ([id number]) on 11/01/2020 10:05:10 AM Referred By: REFERRED SELF Confirmed By:Jimmie Ruiz
[2020-11-01] MEDS ORDERED: AZITHROMYCIN 500 MG in DEXTROSE 5% 250 ML IV SCH (20:00)
[2020-11-01] MEDS ORDERED: cefTRIAXone SODIUM 2,000 MG in DEXTROSE 5% 50 ML IV SCH (20:00)
[2020-11-01] MEDS ORDERED: SIMVASTATIN 10 MG TAB PO SCH (21:00)
[2020-11-01] MEDS ORDERED: ATENOLOL 50 MG TABLET PO SCH (21:00)
--- NOTE | 2020-11-01 21:16 | Discharge Summary ---
Date of Service November 01, 2020 Admission HPI Per Admitting Provider The patient is a 75-year-old male with a past medical history including diabetes mellitus, hyperlipidemia, hypertension, hemorrhoids, reducible right inguinal hernia, tick bite, vitamin D deficiency, erectile dysfunction and colonic diverticulosis. He presents to the emergency department symptoms as noted above and then was referred for evaluation for admission after chest x-ray showed a possible left lower lobe retrocardiac infiltrate. He received from the emergency department ceftriaxone IV and azithromycin IV. Principal Diagnosis Community-acquired pneumonia Discharge Exam Constitutional WD/WN, vitals as above Eyes EOM intact bilaterally; no conjunctival abnormality ENMT external ear and nose normal, oropharynx normal Neck trachea midline, no thyromegaly normal visual inspection Respiratory normal respiratory effort, lungs clear to auscultation no respiratory distress Cardiovascular RRR, no murmur, no edema Gastrointestinal (Abdomen) Inspection/Auscultation: abdomen normal to inspection; abdomen not distended Musculoskeletal no cyanosis or clubbing, extremities motor strength 5/5 Skin no rashes, warm and dry Neurologic moves all extremities and awake Psychiatric Orientation: alert, oriented to person and cooperative Discharge Data Allergies Allergy/AdvReac Type Severity Reaction Status Date / Time celecoxib [From Celebrex] Allergy Mild Rash Verified 10/31/20 18:44 lisinopril Allergy Mild headache/co Verified 10/31/20 18:44 ugh Consultations 10/31/20 19:16 ED Decision to Admit Stat Ordered Studies 10/31/20 20:16 CT abd pelvis wo con Stat CT chest diagnostic wo con Urgent Hospital Course (1) Left lower lobe consolidation: CT scan of chest without contrast showed 7.5 x 4.2 cm focus of conso lidation within the anterior basal segment of the left lower lobe. This favors pneumonia. - Given his overall well appearance, we opted for discharge with: * Augmentin + azithromycin for a 5-day course. He will follow up with PCP this coming week to ensure he is doing well. Could also get CBC to ensure leukocytosis has resolved. - If he is doing well, can repeat the chest CT in 3 months to ensure resolution. He had been working with moldy buildings recently, so if there are further concerns to issues, could consider further testing for fungal infection. (2) Diabetes mellitus: On no overt treatment at this time. - Glucose was 141 upon admission - Hemoglobin A1c drawn, but still pending. (3) Hyperlipidemia: - Continue simvastatin 10 mg daily (4) HTN (hypertension): - Continued atenolol 50 mg daily, losartan 25 mg daily. - Resume triamterene/HCTZ on discharge. (5) Nausea: Lipase upon admission 940. CT of abdomen and pelvis did not show any signs of pancreatitis. - Repeat lipase was 100. Unclear cause. No abdominal pain. - No further follow up unless abdominal pain. Total Time Total Time Spent Total Time Spent (In Minutes): 35 Discharge Plan Discharge Items Patient Disposition: Home - Self-Care Reason For Visit: PNEUMONIA,HYPOXIA,NAUSEA Discharge Diagnosis: Presumed community-acquired pneumonia Activity: Resume your previous activity Non-emergency contact: Primary Care Provider Call non-emergency contact if: your pain is not controlled and your temperature is above 101 Follow-up/Referrals: Sera El MD [Primary Care Provider] - Diet: Heart Healthy Addtl Attending Provider Instructions: Mr. Gonzalez, You were admitted to the hospital with some cough and pain and seen to have a likely pneumonia on CT scan of your chest. I say likely because the CT scan cannot fully rule out cancer, but it is considered extremely unlikely. As we discussed, we are going to treat you with a 5-day course of antibiotics. (Only 4 more days because we count the day in the hospital.) This will adequately cover a community pneumonia. You can see your PCP late this week or early next week. If you are fever-free, your leukocytosis has resolved, and you feel fine, then no further treatment would be needed. You could then get a repeat CT scan in 3 months to ensure everything has cleared up. If you are having further symptoms (fevers, more/continued pain, cough, sputum changes, etc.), then you will maybe need more testing and would need to consider further treatment with Dr. El. Pending Studies at Discharge: Yes Studies:: CT scan of chest in 3 months Stand-Alone Forms: My [facility], Smoking Cessation Medications and DC Order Prescriptions: New albuterol sulfate 90 mcg/actuation HFA aerosol inhaler 2 inh inhalation Q6H PRN (Reason: shortness of breath or wheezing) Qty: 6.7 RF: 0 azithromycin 250 mg tablet 250 mg PO DAILY Qty: 4 RF: 0 amoxicillin-pot clavulanate [Augmentin] 875-125 mg tablet 1 tab PO BID Qty: 8 RF: 0 Continued (DME) blood-glucose meter [OneTouch UltraMini] kit See Dose Instructions .ROUTE .MEDSUPPLY Qty: 1 RF: 0 (DME) lancets [OneTouch UltraSoft Lancets] misc See Dose Instructions .ROUTE .MEDSUPPLY Qty: 100 RF: 1 (DME) OneTouch Ultra Blue Test Strip Strip See Dose Instructions .ROUTE .MEDSUPPLY Qty: 100 RF: 1 meloxicam 15 mg tablet 15 mg PO QAM Qty: 90 RF: 1 losartan 25 mg tablet 25 mg PO DAILY Qty: 90 RF: 1 triamterene-hydrochlorothiazid 37.5-25 mg tablet 1 tab PO QAM Qty: 90 RF: 1 cholecalciferol (vitamin D3) [Vitamin D3] 2,000 unit Capsule 2,000 unit PO BID RF: 0 omega 6-syt-yxq-fish oil [Fish Oil] 1,000 mg (120 mg-180 mg) Capsule 1 cap PO BID RF: 0 aspirin 81 mg Tablet,Delayed Release (Dr/Ec) 81 mg PO BID 42 Days Qty: 0 RF: 0 simvastatin 10 mg tablet 10 mg PO QPM RF: 0 atenolol 50 mg tablet 50 mg PO QPM RF: 0 Discharge Orders: Discharge Order (Routine); Ordered 11/01/20 Ordered By: Robert Pineda Admission Data Admit Date/Time: 10/31/20 22:52 Attending Provider: Robert Pineda Admit Provider: Nghia Duval Primary Care Provider: Sera El Other Providers: Robert Pineda Other Interventions: Discharge Summary Assessment (RN) Last Done: 11/01/20 10:24 Coding Level of Care Code Admit/DC Same Day >8hr Level 3 Diagnoses Left lower lobe consolidation J18.1 Diabetes mellitus E11.9 Hyperlipidemia E78.5 HTN (hypertension) I10 Nausea R11.0
[2020-11-02 07:59] LABS: Estimated Average Glucose 148 mg/dl; Hemoglobin A1C 6.8 % (4.5-5.6)
== END 2020-11-01 10:51 | disposition home or self-care (01) | DRG 195 ==
LOC: ED 17:50 → SUATTDRO 22:52 → 2S 22:52

== ENCOUNTER 2022-08-08 12:00 | Observation (INO) ==
--- NOTE | 2022-08-08 12:24 | Emergency Department Note ---
Impression & Plan Chest pressure ED Provider Note INFORMANT: Patient ED PROVIDER(S): Raul Jane DO CHIEF COMPLAINT: Chest pressure, sweating and low blood pressure PLAN: Disposition: Admission Outpatient prescription management: none Discussion with: I spoke with the hospitalist, who will see the patient for a dmission/observation and further evaluation and consultation. MEDICAL DECISION MAKING: This is a 76-year-old male who presents to the ED with a chief complaint of chest discomfort. The patient states that he was about to have a chemical stress test in the office when his symptoms occurred today. The reason for stress test was for previous similar symptoms like this. The patient reports that he suddenly developed some chest pressure, became pale and diaphoretic and had a low blood pressure. He has previously had the symptoms with near syncope. His blood pressure was around 90 systolic in the office just prior to the stress test. His symptoms lasted for about 20 minutes and then improved. In the meantime the patient was sent here for further evaluation. A twelve-lead EKG there showed a normal sinus rhythm with T wave inversion in V1. He also has poor R wave progression. His EKG today looks similar in the emergency department. He is currently asymptomatic. His vital signs reveal blood pressure 145/89. He states this is about normal for him. His other vital signs were normal. His exam was unremarkable. Lungs are clear. Heart is regular rat e and rhythm. The patient's CBC and chemistry panel did not show a leukocytosis, anemia or kidney dysfunction. No electrolyte abnormality. Troponin was negative for myocardial infarction. The patient was told the results. He will be seen by the hospitalist for further evaluation and care for his symptoms. Triage Nursing notes reviewed. Vital Signs: reviewed Prior /Outside records reviewed: 07/18/2022, wellness visit. Dyspnea on exertion becoming more frequent. Differential diagnosis: Unstable angina, transient hypotension, vasovagal, arrhythmia, other Diagnostics, as interpreted by me: 12 lead ECG: Normal sinus rhythm at a rate of 74. No ST elevation. No PVCs. Poor R wave progression. Cardiac Monitoring ordered: Sinus rhythm in the 70s Medical decision rules: none Imaging studies: 6 chest x-ray: No acute disease. No pneumonia or pneumothorax. Procedures: none. Critical care: none. HPI: See MDM above. PAST MEDICAL HISTORY: See Below PAST SURGICAL HISTORY: See Below SOCIAL HISTORY: See Below HOME MEDICATIONS: See Below ALLERGIES: See Below VITALS: See Below PHYSICAL EXAMINATION: See MDM for positive findings otherwise unremarkable. CONSTITUTIONAL/VITAL SIGNS: Reviewed GENERAL:done as appropriate INTEGUMENTARY: done as appropriate HEAD: done as appropriate EYES: done as appropriate RESPIRATORY: done as appropriate CARDIOVASCULAR:done as appropriate GI/ABDOMEN:done as appropriate EXTREMITIES: done as appropriate NEUROLOGICAL: done as appropriate PSYCHIATRIC:done as appropriate MUSCULOSKELETAL:done as appropriate TRIAGE NURSING DOCUMENTATION REVIEWED. Past Med/Surg History Medical History Aneurysm of left renal artery New finding -- appt with Dr. Bustamante 05/03. 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 No issues per anesthesia postop progress note. History of colonoscopy History of cystoscopy History of laminectomy LUMBAR SPINE History of nasal surgery POLYPS REMOVED History of prostate biopsy History of removal of cyst sebaceous cyst removed off neck History of tonsillectomy and adenoidectomy History of total right knee replacement 12/17/2019: SAB at L3-L4, 1 attempt + PNB at [facility]. No issues per anesthesia postop progress note. History of wisdom tooth extraction Family History Brother Hypertension Heart disease History of cardiac surgery; Diabetes Mother , in her 90s Diabetes Sister Breast cancer Father , 62yo Myocardial infarction Heart disease Hypertension Son No problems noted. Other No family history of adverse response to anesthesia Denies family history of Ovarian cancer Prostate cancer Colorectal cancer Social History Smoking Status: Former smoker Cigarettes Per Day: 2 PPD x 20 yrs;; Second Hand Exposure: No; Hx Alcohol Use: No Hx Substance Use: No Preferred Language: Croatian Communication Ability: Effective Visual Impairment: No Limitations Hearing Ability: Normal Electrical Mechanical Technician Required: No Beliefs That Will Affect Care: None marital status: Current Living Situation: Spouse current occupational status: retired current occupation: Pharmacist How many Children do You have: 1 Feels Safe at Home: Yes Childhood Exposure to Second-Hand Smoke: No caffeine: Yes during the past year weight has: remained stable Dental Care, Regularly: Yes Physical Activity Frequency: Daily Seatbelt Use: always Sunscreen Use: Yes Assistive Devices: Glasses Allergies Allergies Allergy/AdvReac Type Severity Reaction Status Date / Time celecoxib [From Celebrex] Allergy Mild Rash Verified 07/21/22 08:34 lisinopril Allergy Mild headache/co Verified 07/21/22 08:34 [facility] Home Meds Home Medications Medication Instructions Recorded Confirmed omega 1-xri-ngk-fish oil 1,200 mg 1 cap PO BID 04/14/21 07/21/22 (144 mg-216 mg) capsule (Fish Oil) psyllium husk (with sugar) 3 1 tbsp PO BID PRN 12/08/21 07/21/22 gram/7 gram oral powder (Metamucil (with sugar)) calcium carbonate 600 mg-vitamin 1 tab PO DAILY 05/17/22 07/21/22 D3 10 mcg (400 unit) tablet (Calcium with Vitamin D) ascorbate calcium (vitamin C) 500 500 mg PO DAILY 07/21/22 07/21/22 mg tablet tamsulosin 0.4 mg capsule 0.4 mg PO DAILY 07/21/22 07/21/22 Previous Rx's Medication Instructions Recorded blood-glucose meter (OneTouch #1 ea 01/24/19 UltraMini kit) lancets (OneTouch UltraSoft #100 ea 01/24/19 Lancets) lorazepam 0.5 mg tablet (Ativan) 0.5 mg PO DAILY PRN anxiety #30 06/15/21 tabs simvastatin 10 mg tablet 10 mg PO QPM #90 tabs 07/12/21 hydrocortisone 2.5 % topical cream 1 applic topical BID PRN skin 07/26/21 irritation #20 grams blood sugar diagnostic #100 ea 02/10/22 losartan 50 mg tablet 50 mg PO BID #180 tabs 03/31/22 amlodipine 10 mg tablet 10 mg PO DAILY #90 tabs 04/28/22 leuprolide 7.5 mg (1 month) 7.5 mg subcut ONCE Prostate cancer 06/17/22 subcutaneous syringe (Stacey) #1 ea metformin 500 mg tablet 500 mg PO BID #180 tabs 06/27/22 meloxicam 15 mg tablet 15 mg PO QAM #90 tabs 07/25/22 Results & Data (ED) Vital Signs Vital Signs - 24 hr 08/08/22 11:57 08/08/22 12:26 Temperature 36.4 C L Temperature Source Temporal Artery Scan Pulse Rate 77 73 Pulse Rhythm Regular Pulse Strength Normal Respiratory Rate 20 Respiratory Effort / Characteristics Non-Labored Spontaneous Respiratory Depth Normal Blood Pressure 145/89 H Blood Pressure Mean 107 Pulse Oximetry 97 Oxygen Delivery Method Room Air Sepsis Recent Fever Within 48 Hours No Sepsis New/Unexplained Change in Mental Status No Sepsis Action Taken by Nursing No Action Required Laboratory Data 08/08/22 12:11 08/08/22 12:11 Lab Results 08/08/22 08/08/22 Range/Units 12:11 12:11 WBC 10.08 (4.8-10.8) K/ul RBC 4.73 (4.70-6.10) M/uL Hgb 13.8 L (14.0-18.0) g/dl Hct 40.4 L (42.0-52.0) % MCV 85.4 (80.0-100.0) fL MCH 29.2 (25.0-34.0) pg MCHC 34.2 (32.0-36.0) g/dL RDW Std Deviation 40.4 (36.4-46.3) fL RDW Coeff of Sancho 12.9 (11.5-14.5) % Plt Count 323 (130-400) K/uL MPV 9.3 L (9.4-12.4) fL Immature Gran % (Auto) 0.7 % Neut % (Auto) 78.3 % Lymph % (Auto) 10.0 % Mccormick % (Auto) 8.2 % Eos % (Auto) 2.1 % Baso % (Auto) 0.7 % Neut # (Auto) 7.89 H (1.40-6.50) K/uL Lymph # (Auto) 1.01 L (1.2-3.4) K/uL Mccormick # (Auto) 0.83 H (0.11-0.59) K/uL Eos # (Auto) 0.21 (0-0.50) K/uL Baso # (Auto) 0.07 (0-0.2) K/uL Immature Gran # (Auto) 0.07 (0.01-0.20) K/uL Sodium 138 (136-145) mmol/L Potassium 3.5 (3.5-5.1) mmol/L Chloride 101 (98-107) mmol/L Carbon Dioxide 24 (21-32) mmol/L Anion Gap 13 H (3-11) BUN 18 (6-23) mg/dl Creatinine 0.98 (0.6-1.4) mg/dl Est Cr Clr Drug Dosing 70.8 ml/min Est GFR ( Amer) 87.1 ml/min Est GFR (Non-Af Amer) 75.1 ml/min BUN/Creatinine Ratio 18.4 (10-20) Glucose 179 H (70-99(Fasting)) mg/dl Calcium 10.3 H (8.5-10.1) mg/dl Total Bilirubin 0.4 (0.2-1.0) mg/dl AST 17 (13-39) U/L ALT 31 (7-52) U/L Alkaline Phosphatase 50 (34-104) U/L Troponin I High Sens 6.5 (0-20) pg/ml Total Protein 6.7 (6.0-8.3) gm/dl Albumin 4.2 (3.4-5.0) gm/dl Globulin 2.5 (2.5-4.0) gm/dl Albumin/Globulin Ratio 1.7 (0.9-2) Lipase 25 (11-82) U/L Imaging Data Radiologist's Impression: Chest X-Ray 08/08/22 12:03 SINGLE VIEW CHEST CLINICAL HISTORY: Atypical chest pain FINDINGS: An AP, portable, upright chest radiograph is compared to study dated 10/31/2020 and correlated with chest CT dated 02/09/2022. The examination is degraded by portable technique and apical lordotic positioning. The heart is enlarged noting atherosclerotic calcification of the thoracic aorta. The pulmonary vasculature is noncongested. Mild emphysema and chronic interstitial thickening is similar to previous. There is mild bibasilar scarring/atelectasis. The lungs and pleural spaces are otherwise clear. No pneumothorax is seen. Skeletal structures are osteopenic. The bony thorax is grossly intact. IMPRESSION: No acute cardiopulmonary abnormality. ACT 112: Negative or not required by law. Electronically signed by: Rory Mallory M.D. 08/08/2022 12:39 PM Discharge Plan Visit Data Chief Complaint: Cardiac Assessment ED Provider: Raul Jane Discharge Problem: Chest pressure Patient Disposition: Being Evaluated by Hospitalist Forms Stand Alone Forms: My [facility] Prescriptions Prescriptions: No Action calcium carbonate-vitamin D3 [Calcium with Vitamin D] 600 mg-10 mcg (400 unit) tablet 1 tab PO DAILY Eligard 7.5 mg (1 month) syringe 7.5 mg subcut ONCE Qty: 1 0RF Rx Instructions: ICD C61 - Coming 07/19/22 omega 2-pjp-yiv-fish oil [Fish Oil] 1,200 (144-216) mg capsule 1 cap PO BID Metamucil (with sugar) 3 gram/7 gram powder 1 tbsp PO BID PRN (DME) blood-glucose meter [OneTouch UltraMini] kit See Dose Instructions .ROUTE .MEDSUPPLY Qty: 1 0RF Dose Instruction: As directed Rx Instructions: Test daily (DME) lancets [OneTouch UltraSoft Lancets] misc See Dose Instructions .ROUTE .MEDSUPPLY Qty: 100 1RF Dose Instruction: As directed Rx Instructions: Test once daily lorazepam [Ativan] 0.5 mg tablet 0.5 mg PO DAILY PRN (Reason: anxiety) Qty: 30 0RF simvastatin 10 mg tablet 10 mg PO QPM Qty: 90 3RF (DME) blood sugar diagnostic Strip See Dose Instructions .ROUTE .MEDSUPPLY Qty: 100 1RF Dose Instruction: As directed Rx Instructions: Test once daily losartan 50 mg tablet 50 mg PO BID Qty: 180 3RF amlodipine 10 mg tablet 10 mg PO DAILY Qty: 90 3RF metformin 500 mg tablet 500 mg PO BID Qty: 180 3RF meloxicam 15 mg tablet 15 mg PO QAM Qty: 90 3RF hydrocortisone 2.5 % cream 1 applic TOP BID PRN (Reason: skin irritation) Qty: 20 4RF ascorbate calcium (vitamin C) 500 mg tablet 500 mg PO DAILY tamsulosin 0.4 mg capsule 0.4 mg PO DAILY Referrals Referrals: Sera lE MD [Primary Care Provider] -
--- NOTE | 2022-08-08 12:41 | XRay Report ---
SINGLE VIEW CHEST CLINICAL HISTORY: Atypical chest pain FINDINGS: An AP, portable, upright chest radiograph is compared to study dated 10/31/2020 and correlat ed with chest CT dated 02/09/2022. The examination is degraded by portable technique and apical lordot ic positioning. The heart is enlarged noting atherosclerotic calcification of the thoracic aorta. The pulmonary vasculature is noncongested. Mild emphysema and chronic interstitial thickening is similar to previous. There is mild bibasilar scarring/atelectasis. The lungs and pleural spaces are otherwis e clear. No pneumothorax is seen. Skeletal structures are osteopenic. The bony thorax is grossly inta ct. IMPRESSION: No acute cardiopulmonary abnormality. ACT 112: Negative or not required by law. Electronically signed by: Rory Mallory M.D. 08/08/2022 12:39 PM
[2022-08-08 13:19] LABS: Basophils # (auto) 0.07 K/uL (0-0.2); Basophils % (auto) 0.7 %; Eosinophils # (auto) 0.21 K/uL (0-0.50); Eosinophils % (auto) 2.1 %; Hematocrit (blood only) 40.4 % (42.0-52.0); Hemoglobin 13.8 g/dl (14.0-18.0); Immature Granulocytes # (auto) 0.07 K/uL (0.01-0.20); Immature Granulocytes % (auto) 0.7 %; Lymphocytes # (auto) 1.01 K/uL (1.2-3.4); Mean Corpuscular Hemoglobin 29.2 pg (25.0-34.0); Mean Corpuscular Hgb Conc 34.2 g/dL (32.0-36.0); Mean Corpuscular Volume 85.4 fL (80.0-100.0); Mean Platelet Volume 9.3 fL (9.4-12.4); Monocytes # (auto) 0.83 K/uL (0.11-0.59); Monocytes % (auto) 8.2 %; Neutrophils # (auto) 7.89 K/uL (1.40-6.50); Neutrophils % (auto) 78.3 %; Platelet Count 323 K/uL (130-400); RDW Coefficient of Variation 12.9 % (11.5-14.5); RDW Standard Deviation 40.4 fL (36.4-46.3); Red Blood Count 4.73 M/uL (4.70-6.10); White Blood Count 10.08 K/ul (4.8-10.8)
[2022-08-08 13:24] LABS: Albumin Globulin Ratio 1.7 (0.9-2); Albumin Level 4.2 gm/dl (3.4-5.0); BUN Creatinine Ratio 18.4 (10-20); Bilirubin,Total 0.4 mg/dl (0.2-1.0); Calcium 10.3 mg/dl (8.5-10.1); Creatinine Clr Calc Pharmacy 70.8 ml/min; Est GFR (African American) 87.1 ml/min; Est GFR (Non-African American) 75.1 ml/min; Globulin 2.5 gm/dl (2.5-4.0); Potassium 3.5 mmol/L (3.5-5.1); Total Protein 6.7 gm/dl (6.0-8.3)
[2022-08-08 13:29] LABS: Troponin I High Sensitivity 6.5 pg/ml (0-20)
--- NOTE | 2022-08-08 14:54 | History & Physical Report ---
Date of Service August 08, 2022 Assessment & Plan (1) Chest pressure: Plan: Chest pain, diaphoresis, near syncope - EKG: Normal sinus rhythm, QTc 470. No ST segment changes.? T wave inversion lead III, aVF. - hstrop on admit is normal - No leukocytosis - Na, K normal - Cr normal at baseline. Admitting Cr 0.98. - CXR: naf Dobutamine stress echo 12/11/2020: 86% of max heart rate achieved, no dobutamine induced EKG changes, baseline echo with normal LV SF without wall motion abnormality Patient has not had hypoxia or tachycardia Discussed with cardiology. Attempted to get patient a stress test and same- day discharge, however he is unable to tolerate a treadmill stress test and dobutamine test cannot be arranged until the following morning. Demeaning stress test ordered, patient admitted for overnight observation and cardiac trending. Suspect his symptoms are most likely vasovagal syncope, precipitated by generalized weakness while on Lupron therapy. Asymptomatic at bedside assessment. DM - A1c previously well controlled on Metformin - basal bolus weight based. Goal BSG [id number] Basal 8 units twice daily CF 50/carb ratio 16 - 6.8% 07/19/22 Prostate cancer Follows with radiation oncology Is not having urology follow-up at this time Continue tamsulosin, receives leuprolide with next injection due on the Low suspicion that leuprolide is contributing to cardiotoxicity, although may make the patient feel overall poor and predisposed to vasovagal events. HLD - Continue fish oil, simvastatin HTN Amlodipine 10 mg Losartan 50 mg p.o. twice daily DVT prophylaxis: Lovenox Diet: Heart healthy, DM CODE STATUS: Full code Disposition: Medical telemetry (2) Aneurysm of left renal artery: (3) Prostate cancer: (4) Hyperlipidemia: (5) Type 2 diabetes mellitus: History of Present Illness Primary Care Provider: Sera El MD Gavin Gonzalez is a 76-year-old male past medical history of renal artery aneurysm who is pending a chemical stress test when he developed chest pain and diaphoresis with hypotension and near syncope. Was referred to the ER for additional care. Gettign ready for a stress test w/ Developed substernal CP, diaphoresis, lightheadedness which recurred just prior to CP and Pt was laying down and having the pre-stress echo pictures taken and was laying on his side when he began to have diaphoresis, and hypotension of 90/43. Normal is 145/90. Was low on recheck x2. Did not have chest pain, but felt an uncomfortable pressure. Feeling was the same discomfort that brought him in for the stress test 2 months ago was eating supper when he had chest tightness which caused him to lay down on the couch which made it much worse. Was not sweating at that time. No radiation to neck or shoulder. Had another episode while painting at his daughters house last week. Was working on the ceiling, similar pressure but this time was associated with sweating, went outside where it was cool. Has some transient shortness of breath. Passed after ~20 minutes. Was not syncopal/presyncopal, but did have some fatigue during the peisod. Does get fatigue with prostate cancer treatment (leuprolide). Due for next shot in 10 days. Was seen by Kailash and Luke in the past. Has not yet seen a music leader, was seen Hazel Navarro for his stress. Past using a ge[place]ian herbal antihemmorhoid cream which he no longer needs Colonscopy for 5 years R knee pain, his of OA pending steroid injection No history of heart disease. Hx preDm per pt, a1c 6.8% at last check on metformin. Father with hx of [place] at age 61, brother [place] 74yo Patient with former tobacco use in remission until 1988. No alochol, no Med marijuana or rec drugs Vitamin D3/Calcium for osteo Medical History: Reviewed Medications: Reviewed Surgical History: Reviewed Family history: Reviewed Allergies: Reviewed Social History: Former tobacco, no Etoh, nbo rec drug Code Status: Full Code Allergies Allergy/AdvReac Type Severity Reaction Status Date / Time celecoxib [From Celebrex] Allergy Mild Rash Verified 07/21/22 08:34 lisinopril Allergy Mild headache/co Verified 07/21/22 08:34 ugh Home Medications Medication Instructions Recorded Confirmed Type blood-glucose meter (OneTouch #1 ea 01/24/19 07/21/22 Rx UltraMini kit) lancets (OneTouch UltraSoft #100 ea 01/24/19 07/21/22 Rx Lancets) omega 0-woi-kgr-fish oil 1,200 mg 1 cap PO BID 04/14/21 07/21/22 History (144 mg-216 mg) capsule (Fish Oil) lorazepam 0.5 mg tablet (Ativan) 0.5 mg PO DAILY PRN anxiety #30 06/15/21 07/21/22 Rx tabs simvastatin 10 mg tablet 10 mg PO QPM #90 tabs 07/12/21 07/21/22 Rx hydrocortisone 2.5 % topical cream 1 applic topical BID PRN skin 07/26/21 07/21/22 Rx irritation #20 grams psyllium husk (with sugar) 3 1 tbsp PO BID PRN 12/08/21 07/21/22 History gram/7 gram oral powder (Metamucil (with sugar)) blood sugar diagnostic #100 ea 02/10/22 07/21/22 Rx losartan 50 mg tablet 50 mg PO BID #180 tabs 03/31/22 07/21/22 Rx amlodipine 10 mg tablet 10 mg PO DAILY #90 tabs 04/28/22 07/21/22 Rx calcium carbonate 600 mg-vitamin 1 tab PO DAILY 05/17/22 07/21/22 History D3 10 mcg (400 unit) tablet (Calcium with Vitamin D) leuprolide 7.5 mg (1 month) 7.5 mg subcut ONCE Prostate cancer 06/17/22 07/21/22 Rx subcutaneous syringe (Eligard) #1 ea metformin 500 mg tablet 500 mg PO BID #180 tabs 06/27/22 07/21/22 Rx ascorbate calcium (vitamin C) 500 500 mg PO DAILY 07/21/22 07/21/22 History mg tablet tamsulosin 0.4 mg capsule 0.4 mg PO DAILY 07/21/22 07/21/22 History meloxicam 15 mg tablet 15 mg PO QAM #90 tabs 07/25/22 Rx Past Med/Surg History Medical History Aneurysm of left renal artery New finding -- appt with Dr. Bustamante 05/03. 9mm renal artery aneurysm per 03/2021 abdomen/pelvis CT Hyperlipidemia Hypertension stable per pt Osteoarthritis Prostate cancer (03/10/21) Pulmonary nodule Reducible right inguinal hernia Type 2 diabetes mellitus lifestyle modifications per pt, follows with PCP, most recent A1c 7.0% Surgical History History of arthroscopy of right knee 01/02/2018: LMA#5 at [facility]. No issues per anesthesia postop progress note. History of colonoscopy History of cystoscopy History of laminectomy LUMBAR SPINE History of nasal surgery POLYPS REMOVED History of prostate biopsy History of removal of cyst sebaceous cyst removed off neck History of tonsillectomy and adenoidectomy History of total right knee replacement 12/17/2019: SAB at L3-L4, 1 attempt + PNB at [facility]. No issues per anesthesia postop progress note. History of wisdom tooth extraction Family History Brother Hypertension Heart disease History of cardiac surgery; Diabetes Mother , in her 90s Diabetes Sister Breast cancer Father , 62yo Myocardial infarction Heart disease Hypertension Son No problems noted. Other No family history of adverse response to anesthesia Denies family history of Ovarian cancer Prostate cancer Colorectal cancer Social History Smoking Status: Former smoker Cigarettes Per Day: 2 PPD x 20 yrs;; Second Hand Exposure: No; Hx Alcohol Use: No Hx Substance Use: No Preferred Language: Belarusian Communication Ability: Effective Visual Impairment: No Limitations Hearing Ability: Normal Coding Assistant Required: No Beliefs That Will Affect Care: None marital status: Current Living Situation: Spouse current occupational status: retired current occupation: Pharmacist How many Children do You have: 1 Feels Safe at Home: Yes Childhood Exposure to Second-Hand Smoke: No caffeine: Yes during the past year weight has: remained stable Dental Care, Regularly: Yes Physical Activity Frequency: Daily Seatbelt Use: always Sunscreen Use: Yes Assistive Devices: Glasses Review of Systems Review of Systems: All systems reviewed & are unremarkable except as noted in HPI & below Physical Exam Physical Exam: General: A&Ox3. NAD. Cooperative. HEENT: Atraumatic, normocephalic. Vision/hearing grossly intact, pupils equal and reactive to light Pulm: CTAB A&P. -wheezes, -rales, -rhonchi. Symmetrical chest rise. No increased work of breathing. No respiratory distress. Cardiac: RRR, -mrg. Radial pulses intact and symmetrical. Abdominal: Nontender, nondistended, soft. BS present. Extremities: Warm, dry. Moves all extremities equally. Distal extremity strength intact, station soft touch intact in hands and feet. Is able to ambulate to the bathroom without difficulty Results & Data Results & Data Vital Signs (Past 12 Hours) Vital Signs Temp Pulse Resp BP Pulse Ox O2 Del Method 08/08/22 12:26 73 08/08/22 11:57 36.4 C L 77 20 145/89 H 97 Room Air PG Care Time/CCT Total # of Minutes Spent Total Time Spent with Patient: Total time spent is greater than 50% in coordination of care (as documented) at patient's floor/unit and/or counseling patient: Coding Level of Care Code 96252 INT INP/OBS CARE 3/75MIN Diagnoses Chest pressure R07.89 Aneurysm of left renal artery I72.2 Prostate cancer C61 Hyperlipidemia E78.5 Type 2 diabetes mellitus E11.9
--- NOTE | 2022-08-08 15:19 | Electrocardiogram Report ---
Test Reason : Blood Pressure : / mmHG Vent. Rate : 070 BPM Atrial Rate : 070 BPM P-R Int : 188 ms QRS Dur : 088 ms QT Int : 436 ms P-R-T Axes : 049 -06 052 degrees QTc Int : 470 ms Normal sinus rhythm Low voltage QRS Abnormal ECG When compared with ECG of 26-MAY-2021 07:22, Minimal criteria for Anterior infarct are now Present Confirmed by Ole Gaona ([id number]) on 08/08/2022 3:19:08 PM Referred By: Confirmed By:Yannick Gaona
[2022-08-08] MEDS ORDERED: DEXTROSE 50% 50 ML SYRINGE IV PRN (15:53)
[2022-08-08] MEDS ORDERED: CARBOHYDRATES FOR HYPOGLYCEMIA PO PRN (15:53)
[2022-08-08] MEDS ORDERED: GLUCOSE 10 TAB/TUBE PO PRN (15:53)
[2022-08-08] MEDS ORDERED: GLUCOSE 40% GEL 15 GM TUBE PO PRN (15:53)
[2022-08-08] MEDS ORDERED: GLUCAGON FOR INJ 1 MG VIAL SQ PRN (15:53)
[2022-08-08] MEDS ORDERED: LORazepam 0.5 MG TAB PO PRN (18:26)
[2022-08-08] MEDS ORDERED: ENOXAPARIN INJ 40 MG/0.4 ML SYR SQ SCH (18:26)
[2022-08-08] MEDS ORDERED: ACETAMINOPHEN 325 MG TAB PO PRN (18:26)
[2022-08-08] MEDS: INSULIN ASPART PER UNIT CHARGE SC SCH ×2 (18:27→20:46)
[2022-08-08] MEDS: LANTUS PER UNIT CHARGE SQ SCH (20:46)
[2022-08-08] MEDS: LOSARTAN POTASSIUM 50 MG TAB PO SCH (20:47)
[2022-08-08] MEDS ORDERED: SIMVASTATIN 10 MG TAB PO SCH (21:00)
[2022-08-09 07:12] LABS: Basophils # (auto) 0.08 K/uL (0-0.2); Basophils % (auto) 0.8 %; Eosinophils # (auto) 0.31 K/uL (0-0.50); Eosinophils % (auto) 3.1 %; Hemoglobin 13.7 g/dl (14.0-18.0); Immature Granulocytes # (auto) 0.05 K/uL (0.01-0.20); Immature Granulocytes % (auto) 0.5 %; Lymphocytes # (auto) 1.08 K/uL (1.2-3.4); Lymphocytes % (auto) 10.7 %; Mean Corpuscular Hgb Conc 33.4 g/dL (32.0-36.0); Mean Corpuscular Volume 86.9 fL (80.0-100.0); Mean Platelet Volume 9.1 fL (9.4-12.4); Monocytes # (auto) 1.06 K/uL (0.11-0.59); Monocytes % (auto) 10.5 %; Neutrophils # (auto) 7.48 K/uL (1.40-6.50); Neutrophils % (auto) 74.4 %; Platelet Count 332 K/uL (130-400); RDW Coefficient of Variation 12.9 % (11.5-14.5); RDW Standard Deviation 40.5 fL (36.4-46.3); Red Blood Count 4.72 M/uL (4.70-6.10); White Blood Count 10.06 K/ul (4.8-10.8)
[2022-08-09 07:24] LABS: BUN Creatinine Ratio 19.6 (10-20); Calcium 9.5 mg/dl (8.5-10.1); Creatinine Clr Calc Pharmacy 67.6 ml/min; Est GFR (African American) 88.1 ml/min; Est GFR (Non-African American) 76.1 ml/min
[2022-08-09 07:31] LABS: Troponin I High Sensitivity 12.5 pg/ml (0-20)
[2022-08-09] MEDS: INSULIN ASPART PER UNIT CHARGE SC SCH ×2 (08:45→11:50)
[2022-08-09] MEDS ORDERED: TAMSULOSIN HCL 0.4 MG CAP PO SCH (09:00)
[2022-08-09] MEDS ORDERED: amLODIPine BESYLATE 5 MG TAB PO SCH (09:00)
[2022-08-09] MEDS ORDERED: ASPIRIN 81 MG ECTAB PO SCH (09:15)
[2022-08-09] MEDS: LOSARTAN POTASSIUM 50 MG TAB PO SCH (09:25)
[2022-08-09] MEDS ORDERED: METOPROLOL TARTRATE 1 MG/ML VIAL IV ONE (10:10)
[2022-08-09] MEDS ORDERED: DOBUTamine HCL 12.5 MG/ML 20 ML VIAL IV ONE (10:10)
[2022-08-09] MEDS ORDERED: ATROPINE SULFATE 0.1 MG/ML 10ML SYR IV ONE (10:10)
[2022-08-09] MEDS ORDERED: NITROGLYCERIN SL 0.4 MG/TAB TAB ONE (10:11)
--- NOTE | 2022-08-09 11:09 | XCELERA ---
[id number]
[2022-08-09 11:24] VITALS: BP 125/90; PULSE 73; TEMP 98.1; O2SAT 96
[2022-08-09] MEDS: LANTUS PER UNIT CHARGE SQ SCH (11:25)
--- NOTE | 2022-08-10 15:45 | Discharge Summary ---
Date of Service August 10, 2022 Admission HPI Per Admitting Provider Gavin Gonzalez is a 76-year-old male past medical history of renal artery aneurysm who is pending a chemical stress test when he developed chest pain and diaphoresis with hypotension and near syncope. Was referred to the ER for additional care. Gettign ready for a stress test w/ Developed substernal CP, diaphoresis, lightheadedness which recurred just prior to CP and Pt was laying down and having the pre-stress echo pictures taken and was laying on his side when he began to have diaphoresis, and hypotension of 90/43. Normal is 145/90. Was low on recheck x2. Did not have chest pain, but felt an uncomfortable pressure. Feeling was the same discomfort that brought him in for the stress test 2 months ago was eating supper when he had chest tightness which caused him to lay down on the couch which made it much worse. Was not sweating at that time. No radiation to neck or shoulder. Had another episode while painting at his daughters house last week. Was working on the ceiling, similar pressure but this time was associated with sweating, went outside where it was cool. Has some transient shortness of breath. Passed after ~20 minutes. Was not syncopal/presyncopal, but did have some fatigue during the peisod. Does get fatigue with prostate cancer treatment (leuprolide). Due for next shot in 10 days. Was seen by Kailash and Luke in the past. Has not yet seen a tonsorial artist, was seen Hazel Navarro for his stress. Past using a amharic herbal antihemmorhoid cream which he no longer needs Colonscopy for 5 years R knee pain, his of OA pending steroid injection No history of heart disease. Hx preDm per pt, a1c 6.8% at last check on metformin. Father with hx of ID at age 61, brother ID 74yo Patient with former tobacco use in remission until 1988. No alochol, no Med marijuana or rec drugs Vitamin D3/Calcium for osteo Medical History: Reviewed Medications: Reviewed Surgical History: Reviewed Family history: Reviewed Allergies: Reviewed Social History: Former tobacco, no Etoh, nbo rec drug Code Status: Full Code Principal Diagnosis Noncardiac chest pain Discharge Exam General-alert and oriented x3, no fevers, no chills HEENT-head atraumatic and normocephalic, pupils equal and reactive to light, extraocular muscles intact Neck-no lymphadenopathy or thyromegaly, trachea midline Chest-clear to auscultation percussion. No rales wheezing or rhonchi Cardiac-regular rate and rhythm, normal S1 and S2 Abdomen-normal bowel sounds, nontender, no hepatosplenomegaly Extremities-no cyanosis, clubbing, or edema Neuro-cranial nerves II through XII intact, motor and sensory function within normal limits, strength symmetrical , no focal deficits Psych-normal affect, normal mood Discharge Data Allergies Allergy/AdvReac Type Severity Reaction Status Date / Time celecoxib [From Celebrex] Allergy Mild Rash Verified 07/21/22 08:34 lisinopril Allergy Mild headache/co Verified 07/21/22 08:34 ugh Consultations 08/08/22 14:40 ED Decision to Admit Stat Hospital Course (1) Chest pressure: No evidence of acute coronary syndrome. Monitored on telemetry while hospitalized. Dobutamine stress echo was negative for ischemia. He was seen by cardiology. (2) Aneurysm of left renal artery: No intervention necessary at this time (3) Prostate cancer: No intervention necessary at this time (4) Hyperlipidemia: Continue statin therapy (5) Type 2 diabetes mellitus: ADA diet. Basal insulin therapy. Sliding scale coverage as needed Plan Discharge to home with negative dobutamine stress test Total Time Total Time Spent Total Time Spent (In Minutes): 35 minutes Discharge Plan Discharge Items Patient Disposition: Home - Self-Care Reason For Visit: HYPOTENSION CARDIAC R/O, PENDING DOBUTAMINE STRESS Discharge Diagnosis: Noncardiac chest pain, suspected vasovagal near syncope Activity: Resume your previous activity Non-emergency contact: Primary Care Provider Call non-emergency contact if: you have any medication questions Follow-up/Referrals: Sera El MD [Primary Care Provider] - 08/16/22 10:30 am Diet: Carb Consistent or DM2 and Heart Healthy Addtl Attending Provider Instructions: Medications remain the same Pending Studies at Discharge: No Stand-Alone Forms: [employer], Smoking Cessation Medications and DC Order Prescriptions: New aspirin 81 mg Tablet,Delayed Release (Dr/Ec) 81 mg PO QAM Qty: 0 0RF Continued calcium carbonate-vitamin D3 [Calcium with Vitamin D] 600 mg-10 mcg (400 unit) tablet 1 tab PO DAILY Eligard 7.5 mg (1 month) syringe 7.5 mg subcut ONCE Qty: 1 0RF Rx Instructions: ICD C61 - Coming 07/19/22 omega 2-stz-xde-fish oil [Fish Oil] 1,200 (144-216) mg capsule 1 cap PO BID Metamucil (with sugar) 3 gram/7 gram powder 1 tbsp PO BID PRN (Reason: Constipation) (DME) blood-glucose meter [OneTouch UltraMini] kit See Dose Instructions .ROUTE .MEDSUPPLY Qty: 1 0RF Dose Instruction: As directed Rx Instructions: Test daily (DME) lancets [OneTouch UltraSoft Lancets] misc See Dose Instructions .ROUTE .MEDSUPPLY Qty: 100 1RF Dose Instruction: As directed Rx Instructions: Test once daily lorazepam [Ativan] 0.5 mg tablet 0.5 mg PO DAILY PRN (Reason: anxiety) Qty: 30 0RF simvastatin 10 mg tablet 10 mg PO QPM Qty: 90 3RF (DME) blood sugar diagnostic Strip See Dose Instructions .ROUTE .MEDSUPPLY Qty: 100 1RF Dose Instruction: As directed Rx Instructions: Test once daily losartan 50 mg tablet 50 mg PO BID Qty: 180 3RF amlodipine 10 mg tablet 10 mg PO DAILY Qty: 90 3RF metformin 500 mg tablet 500 mg PO BID Qty: 180 3RF meloxicam 15 mg tablet 15 mg PO QAM Qty: 90 3RF methylprednisolone 4 mg tablets,dose pack 4 mg PO UD Qty: 1 0RF Rx Instructions: Use as directed ascorbate calcium (vitamin C) 500 mg tablet 500 mg PO DAILY tamsulosin 0.4 mg capsule 0.8 mg PO DAILY latanoprost 0.005 % drops 1 drp ophthalmic (eye) UD Discharge Orders: Discharge Order (Routine); Ordered 08/09/22 Ordered By: Ronak Marinelli/Other Patient Handouts: Dobutamine Stress Echo, Diagnosing Syncope, Treating Syncope: Prevention, Understanding Vasovagal Syncope, ED Fainting, Vagal Reaction Admission Data Admit Date/Time: 08/08/22 15:53 Attending Provider: Ronak Cui Admit Provider: Dmitri Metcalf Primary Care Provider: Sera El Other Providers: Dmitri Metcalf Other Interventions: Discharge Summary Assessment (RN) Last Done: 08/09/22 12:35 Coding Level of Care Code 71781 INP/OBS DISCH >30 MIN Diagnoses Chest pressure R07.89 Aneurysm of left renal artery I72.2 Prostate cancer C61 Hyperlipidemia E78.5 Type 2 diabetes mellitus E11.9
== END 2022-08-09 12:48 | disposition home or self-care (01) ==
LOC: ED 12:00 → 2N 12:00 → SUATTDRO 15:53 → 2N 17:12

== ENCOUNTER 2022-12-02 06:01 | Observation (INO) ==
--- NOTE | 2022-10-31 14:41 | PAT Medication Instructions ---
Medication Instructions Date of Service October 31, 2022 Home Medications Medication Instructions Recorded blood-glucose meter (OneTouch #1 ea 01/24/19 UltraMini kit) lancets (OneTouch UltraSoft #100 ea 01/24/19 Lancets) losartan 50 mg tablet 50 mg PO BID #180 tabs 03/31/22 metformin 500 mg tablet 500 mg PO BID #180 tabs 06/27/22 meloxicam 15 mg tablet 15 mg PO QAM #90 tabs 07/25/22 aspirin 81 mg tablet,delayed 81 mg PO QAM #0 tabs 08/09/22 release tramadol 50 mg tablet 50 mg PO BID PRN pain #10 tabs 08/16/22 simvastatin 10 mg tablet 10 mg PO QPM #90 tabs 08/22/22 tramadol 50 mg tablet 50 mg PO Q6H PRN pain #20 tabs 08/29/22 blood sugar diagnostic #100 ea 09/21/22 tramadol 50 mg tablet 50 mg PO Q6H PRN pain #30 tabs 09/26/22 leuprolide 7.5 mg (1 month) 7.5 mg subcut ONCE Prostate cancer 10/10/22 subcutaneous syringe ([employer]) #1 ea lorazepam 0.5 mg tablet (Ativan) 0.5 mg PO BID PRN anxiety #60 tabs 10/26/22 omega 1-nux-sas-fish oil 1,200 mg (144 mg-216 mg) capsule (Fish Oil) 1 cap PO BID psyllium husk (with sugar) 3 gram/7 gram oral powder (Metamucil (with sugar)) 1 tbsp PO BID PRN Constipation losartan 50 mg tablet 50 mg PO BID calcium carbonate 600 mg-vitamin D3 10 mcg (400 unit) tablet (Calcium with Vitamin D) 1 tab PO QAM metformin 500 mg tablet 500 mg PO BID meloxicam 15 mg tablet 15 mg PO QAM latanoprost 0.005 % eye drops 1 drp ophthalmic (eye) PM aspirin 81 mg tablet,delayed release 81 mg PO QAM tramadol 50 mg tablet 50 mg PO BID PRN pain tamsulosin 0.4 mg capsule 0.4 mg PO QAM simvastatin 10 mg tablet 10 mg PO QPM tramadol 50 mg tablet 50 mg PO Q6H PRN pain tramadol 50 mg tablet 50 mg PO Q6H PRN pain leuprolide 7.5 mg (1 month) subcutaneous syringe (Eligard) 7.5 mg subcut ONCE Prostate cancer lorazepam 0.5 mg tablet (Ativan) 0.5 mg PO BID PRN anxiety amlodipine 10 mg tablet 10 mg PO QAM cholecalciferol (vitamin D3) 50 mcg (2,000 unit) capsule (Vitamin D3) 50 mcg PO BID Continue as directed leuprolide 7.5 mg (1 month) subcutaneous syringe (Eligard) 7.5 mg subcut ONCE Prostate cancer ASK your surgeon for instructions meloxicam 15 mg tablet 15 mg PO QAM STOP taking 2 weeks before surgery (or as soon as possible if surgery is within 2 weeks) omega 6-qlx-wvv-fish oil 1,200 mg (144 mg-216 mg) capsule (Fish Oil) 1 cap PO BID DO NOT take the morning of surgery psyllium husk (with sugar) 3 gram/7 gram oral powder (Metamucil (with sugar)) 1 tbsp PO BID PRN Constipation losartan 50 mg tablet 50 mg PO BID calcium carbonate 600 mg-vitamin D3 10 mcg (400 unit) tablet (Calcium with Vitamin D) 1 tab PO QAM metformin 500 mg tablet 500 mg PO BID cholecalciferol (vitamin D3) 50 mcg (2,000 unit) capsule (Vitamin D3) 50 mcg PO BID Take morning of surgery With a small sip of water, OTHERWISE NOTHING TO EAT OR DRINK AFTER MIDNIGHT: aspirin 81 mg tablet,delayed release 81 mg PO QAM (continue as normal unless told otherwise by surgeon) tramadol PRN pain (if needed) tamsulosin 0.4 mg capsule 0.4 mg PO QAM lorazepam 0.5 mg tablet (Ativan) 0.5 mg PO BID PRN anxiety (if needed) amlodipine 10 mg tablet 10 mg PO QAM Take evening before surgery psyllium husk (with sugar) 3 gram/7 gram oral powder (Metamucil (with sugar)) 1 tbsp PO BID PRN Constipation (if needed) losartan 50 mg tablet 50 mg PO BID metformin 500 mg tablet 500 mg PO BID latanoprost 0.005 % eye drops 1 drp ophthalmic (eye) PM tramadol PRN pain (if needed) simvastatin 10 mg tablet 10 mg PO QPM lorazepam 0.5 mg tablet (Ativan) 0.5 mg PO BID PRN anxiety (if needed) cholecalciferol (vitamin D3) 50 mcg (2,000 unit) capsule (Vitamin D3) 50 mcg PO BID Other Notes If you have any questions please call us at [phone] or [phone] or [phone] or [phone]
--- NOTE | 2022-11-08 09:14 | Anesthesiology Consultation ---
Date of Service November 08, 2022 Assessment & Plan (1) Encounter for pre-operative examination: - Check BSG AM DOS - COVID screening: Per assessment on 11/08: No known COVID-19 positive contacts or current COVID-19 related symptoms. Travel screen negative. Patient vaccinated. At surgeon discretion if preop Covid testing being done. - S/P Right TKA (12/17/19): SAB at L3-L4, 1 attempt + PNB at [facility]. No issues per anesthesia postop progress note. - Outpatient joint pathway: Per OR booking comments, request for review for outpatient joint program. Patient seen at [facility] 11/08. Patient's home support (per patient, she is in good health, does not have concerns with her being the support person). Case (as well recent cardiac evaluation) reviewed with Dr. Lubin- he feels that patient is not recommended candidate for outpatient joint pathway. Patient + Theresa at surgeon's office aware > patient will be switched to inpatient pathway postoperatively. - Cardiology visit (08/25/22): "His constellation of symptoms is consistent with drop in blood pressure. The mechanism for the drop in blood pressure is unclear. Fainting is a side effect of leuprolide but is relatively rare. Chest tightness is also unknown side effect which is less rare. Certainly, his current acceleration of symptoms may be due to the accumulation of therapy over these many months. However, he had some of the symptoms preceding any treatment and given his age and other comorbidities certainly he would be at risk for cardiogenic syncope. Therefore, I have recommended that he undergo protracted cardiac event monitoring to evaluate for any significant arrhythmia. Additionally, I will have him undergo tilt table testing to evaluate for vasovagal syncope, carotid hypersensitivity, orthostatic hypotension, etc. I have recommended in the short-term that he be cautious if he begins to have symptoms so that he does not syncopized while standing up. Also, it may be most prudent for him to allow someone else to do the driving in the short-term.. Non- cardiac chest pain: Stress test is reassuring. This likely is media sales representative of a side effect from his leuprolide. Additional cardiac testing for this issue is not warranted at this time.. Patient is okay to continue his leuprolide treatment. He has 6 more planned injections (1 time per month). I would like his cardiac tests done while he is on his medication. If the symptoms worsen and we do not find a cardiac etiology then I would at that point recommend discontinuation of the loop ride. Many of his other symptoms such as muscle weakness, etc. can be attributed to his leuprolide." Patient subsequently seen at [facility] 11/08/22- no further episodes of diaphoresis, lightheadedness nausea and near syncope. No chest pain recurrence. Unremarkable monitoring tech + tilt table test performed 09/2022. Workload note written to cardiology- Awaiting response. Chart Review Chart Review: Patient seen in Pre Admission Testing Teaching & Discussion Pre-Anesthesia Teaching/Discussion Notes: Instructed NPO after midnight before surgery,except medications with 15 cc of water. Medication instructions provided according to the [facility] guidelines. History Surgery Operation Date: 12/02/22 11:50 Proposed Procedures p Left Unicompartment Knee Arthroplasty versus - Dylan Babcock DO s Left Total Knee Arthroplasty - Dylan Babcock DO Height/Weight Height: 5 ft 7 in Weight: 86.5 kg Allergies Allergy/AdvReac Type Severity Reaction Status Date / Time celecoxib [From Celebrex] Allergy Mild Rash Verified 10/31/22 12:19 lisinopril AdvReac Mild Headache, Verified 11/07/22 11:43 cough Medications Home Medications Medication Instructions Recorded Confirmed Last Taken blood-glucose meter (OneTouch #1 ea 01/24/19 09/20/22 Unknown UltraMini kit) lancets (OneTouch UltraSoft #100 ea 01/24/19 09/20/22 Unknown Lancets) omega 3-vdm-jez-fish oil 1,200 mg 1 cap PO BID 04/14/21 10/31/22 2 Weeks Ago (144 mg-216 mg) capsule (Fish Oil) ~05/12/21 psyllium husk (with sugar) 3 1 tbsp PO BID PRN Constipation 12/08/21 10/31/22 Unknown gram/7 gram oral powder (Metamucil (with sugar)) losartan 50 mg tablet 50 mg PO BID #180 tabs 03/31/22 10/31/22 Unknown calcium carbonate 600 mg-vitamin 1 tab PO QAM 05/17/22 10/31/22 Unknown D3 10 mcg (400 unit) tablet (Calcium with Vitamin D) metformin 500 mg tablet 500 mg PO BID #180 tabs 06/27/22 10/31/22 Unknown meloxicam 15 mg tablet 15 mg PO QAM #90 tabs 07/25/22 10/31/22 Unknown latanoprost 0.005 % eye drops 1 drp ophthalmic (eye) PM 08/08/22 10/31/22 Unknown aspirin 81 mg tablet,delayed 81 mg PO QAM #0 tabs 08/09/22 10/31/22 Unknown release tramadol 50 mg tablet 50 mg PO BID PRN pain #10 tabs 08/16/22 10/31/22 Unknown tamsulosin 0.4 mg capsule 0.4 mg PO QAM 08/18/22 10/31/22 Unknown simvastatin 10 mg tablet 10 mg PO QPM #90 tabs 08/22/22 10/31/22 Unknown tramadol 50 mg tablet 50 mg PO Q6H PRN pain #20 tabs 08/29/22 10/31/22 Unknown blood sugar diagnostic #100 ea 09/21/22 Unknown tramadol 50 mg tablet 50 mg PO Q6H PRN pain #30 tabs 09/26/22 10/31/22 Unknown leuprolide 7.5 mg (1 month) 7.5 mg subcut ONCE Prostate cancer 10/10/22 10/31/22 Unknown subcutaneous syringe (Eligard) #1 ea lorazepam 0.5 mg tablet (Ativan) 0.5 mg PO BID PRN anxiety #60 tabs 10/26/22 10/31/22 Unknown amlodipine 10 mg tablet 10 mg PO QAM 10/31/22 10/31/22 Unknown cholecalciferol (vitamin D3) 50 50 mcg PO BID 10/31/22 10/31/22 Unknown mcg (2,000 unit) capsule (Vitamin D3) Past Medical History Medical History 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 Abdomen, under surveillance by vascular- recommendation for 2 year follow-up per patient Hyperlipidemia Hypertension stable per pt Osteoarthritis Prostate cancer Brachytherapy (05/2021, [facility]) Pulmonary nodule Annual surveillance Reducible right inguinal hernia present Type 2 diabetes mellitus NIDDM Vasovagal syncope Occasional, did tilt table test (unknown results) Exercise / Class Metabolic Activity III < 4 Walking/Shop/Light housework (one FS (no CP, + occasional SOB felt related to hormone therapy for prostate cancer)) Past Family History Family History Brother Hypertension Heart disease History of cardiac surgery; Diabetes Mother , in her 90s Diabetes Sister Breast cancer Father , 62yo Myocardial infarction Heart disease Hypertension Son No problems noted. Other No family history of adverse response to anesthesia Denies family history of Ovarian cancer Prostate cancer Colorectal cancer Past Surgical History Surgical History History of arthroscopy of right knee 01/02/2018: LMA#5 at [facility]. No issues per anesthesia postop progress note. History of brachytherapy Brachytherapy (05/26/21): Grade view 3, MAC#4, ETT 7.5 at [facility] History of colonoscopy History of cystoscopy History of laminectomy Lumbar spine History of nasal surgery Polyps removed History of prostate biopsy History of removal of cyst sebaceous cyst (removed off neck) History of tonsillectomy and adenoidectomy History of total right knee replacement Right TKA (12/17/19): SAB at L3-L4, 1 attempt + PNB at [facility]. No issues per anesthesia postop progress note. History of wisdom tooth extraction Past Anesthesia History No Hx of Anesthesia Complications and No Family Hx of Anesthesia Complications History of PONV No Hx of PONV and Hx of Motion Sickness (+ boats) Social History Smoking Status: Former smoker tobacco type: cigarettes Do You Dip or Chew Tobacco: No Smoking End Date: Quit 1988 (Hx 2 PPD x 20 yrs) Hx Alcohol Use: Yes Alcohol type: beer alcohol intake frequency: a few times a week Hx Substance Use: No substance use type: does not use Review of Systems Patient denies chest pain, shortness of breath, fever, chills, cough, wheezing, palpitations. Physical Exam Vital Signs VITALS BP 133/75 P 72 TEMP 98.6 SP02 96%RA RESP 16 PHYSICAL Full cervical extension range of motion. Full TMJ range of motion. TMD 3 finger breaths Mallampati Score 3 Dentition: missing molars Lungs: clear throughout to auscultation Cardiac: regular rate and rhythm, no murmurs noted Spine: normal Carotid arteries: negative bruit Extremities: no LE edema Lab Results Anesthesia Preop Results Results Anesthesia Widget: WBC 9.49 K/ul (4.8-10.8) 11/08/22 Hgb 14.0 g/dl (14.0-18.0) 11/08/22 Hct 41.8 % (42.0-52.0) L 11/08/22 Plt 358 K/uL (130-400) 11/08/22 Na 140 mmol/L (136-145) 11/08/22 K 3.7 mmol/L (3.5-5.1) 11/08/22 Cl 107 mmol/L (98-107) 11/08/22 CO2 23 mmol/L (21-32) 11/08/22 BUN 25 mg/dl (6-23) H 11/08/22 Creat 0.81 mg/dl (0.6-1.4) 11/08/22 Glucose Level 138 mg/dl (70-99(Fasting)) H 11/08/22 PT 9.8 Seconds (9.0-12.0) 11/08/22 PTT 26.0 Seconds (21.0-31.0) 11/08/22 INR 0.9 (0.9-1.1) 11/08/22 HA1c 7.0 % (4.5-5.6) H 11/08/22 Blood Type A Positive 11/08/22 Antibody Screen NEGATIVE 11/08/22 Testing Electrocardiogram Date: 08/08/22 Normal sinus rhythm at 70 bpm. Low voltage QRS. Chest X-Ray Date: 08/08/22 FINDINGS: An AP, portable, upright chest radiograph is compared to study dated 10/31/2020 and correlated with chest CT dated 02/09/2022. The examination is degraded by portable technique and apical lordotic positioning. The heart is enlarged noting atherosclerotic calcification of the thoracic aorta. The pulmonary vasculature is noncongested. Mild emphysema and chronic interstitial thickening is similar to previous. There is mild bibasilar scarring/atelectasis. The lungs and pleural spaces are otherwise clear. No pneumothorax is seen. Skeletal structures are osteopenic. The bony thorax is grossly intact. IMPRESSION: No acute cardiopulmonary abnormality. Stress Test Date: 08/09/22 Normal dobutamine echocardiogram without evidence of inducible ischemia. LV systolic function is normal. EF 60-65%. 88% MPHR. Other Testing Cardiac Tilt Table Date: 09/22/22 Baseline blood pressure was 138/84 with a pulse of 67 There were no significant hemodynamic derangements during head-up tilt table testing. At the conclusion of the procedure the patient blood pressure is 135/78 with a pulse of 75 no symptoms reported carotid massage did not demonstrate any hypersensitive response Impression: Normal head up tilt table test without syncope or hemodynamic derangement No vasodepressor or cardioinhibitory effect No evidence for carotid hypersensitivity No symptoms report 24 hour cardiac event monitor Date: 09/29/22 Rare PACs/PVCs. No PSVT. Sinus tachycardia (max HR 120 bpm). Sinus bradycardia (minimum heart rate 50 bpm). Reported lightheaded, chest pain, tachycardia, and dizzy which correlated to normal sinus rhythm. COVID-19 Risk Screen Screening Information COVID-19 Screen Date: 11/08/22 Exposure 21 Days Family/Household +COVID Last 21 Days: No Exposure 10 Days Any COVID Exposure Last 10 Days: No Symptoms Last 10 Days Experienced COVID Sx Last 10 Days: No + COVID 0-90 Days COVID + in Last 0-90 Days: No
--- NOTE | 2022-12-01 14:18 | History & Physical Report ---
Date of Service December 01, 2022 Assessment & Plan (1) Osteoarthritis of left knee: We will proceed with a left partial knee replacement surgery.. Postoperatively he will be started on aspirin for DVT prophylaxis and kept overnight in the hospital for postop medical management. He plans to go to [facility] upon discharge History of Present Illness Chief Complaint: Osteoarthritis of the left knee. Primary Care Provider: Sera El MD Cristel is a pleasant 77-year-old male who I did a right partial knee replacement on in 2019. He has done very well with that. Unfortunately, he has been dealing with left knee pain. He has been seen by my partners. 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 After failed conservative treatment, he has elected proceed with a left partial knee replacement surgery. Allergies Allergy/AdvReac Type Severity Reaction Status Date / Time celecoxib [From Celebrex] Allergy Mild Rash Verified 11/25/22 09:27 lisinopril AdvReac Mild Headache, Verified 11/25/22 09:27 cough Home Medications Medication Instructions Recorded Confirmed Type blood-glucose meter (OneTouch #1 ea 01/24/19 11/30/22 Rx UltraMini kit) lancets (OneTouch UltraSoft #100 ea 01/24/19 11/30/22 Rx Lancets) omega 9-vgz-ayj-fish oil 1,200 mg 1 cap PO BID 04/14/21 11/30/22 History (144 mg-216 mg) capsule (Fish Oil) psyllium husk (with sugar) 3 1 tbsp PO BID PRN Constipation 12/08/21 11/30/22 History gram/7 gram oral powder (Metamucil (with sugar)) losartan 50 mg tablet 50 mg PO BID #180 tabs 03/31/22 11/30/22 Rx calcium carbonate 600 mg-vitamin 1 tab PO QAM 05/17/22 11/30/22 History D3 10 mcg (400 unit) tablet (Calcium with Vitamin D) metformin 500 mg tablet 500 mg PO BID #180 tabs 06/27/22 11/30/22 Rx meloxicam 15 mg tablet 15 mg PO QAM #90 tabs 07/25/22 11/30/22 Rx latanoprost 0.005 % eye drops 1 drp ophthalmic (eye) PM 08/08/22 11/30/22 History aspirin 81 mg tablet,delayed 81 mg PO QAM #0 tabs 08/09/22 11/30/22 Rx release tamsulosin 0.4 mg capsule 0.4 mg PO QAM 08/18/22 11/30/22 History simvastatin 10 mg tablet 10 mg PO QPM #90 tabs 08/22/22 11/30/22 Rx tramadol 50 mg tablet 50 mg PO Q6H PRN pain #20 tabs 08/29/22 11/30/22 Rx blood sugar diagnostic #100 ea 09/21/22 11/30/22 Rx lorazepam 0.5 mg tablet (Ativan) 0.5 mg PO BID PRN anxiety #60 tabs 10/26/22 11/30/22 Rx amlodipine 10 mg tablet 10 mg PO QAM 10/31/22 11/30/22 History cholecalciferol (vitamin D3) 50 50 mcg PO BID 10/31/22 11/30/22 History mcg (2,000 unit) capsule (Vitamin D3) vibegron 75 mg tablet 75 mg PO DAILY 11/30/22 11/30/22 History Past Med/Surg History Medical History 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 No issues per anesthesia postop progress note. History of brachytherapy Brachytherapy (05/26/21): Grade view 3, MAC#4, ETT 7.5 at [facility] History of colonoscopy History of cystoscopy History of laminectomy Lumbar spine History of nasal surgery Polyps removed History of prostate biopsy History of removal of cyst sebaceous cyst (removed off neck) History of tonsillectomy and adenoidectomy History of total right knee replacement Right TKA (12/17/19): SAB at L3-L4, 1 attempt + PNB at [facility]. No issues per anesthesia postop progress note. History of wisdom tooth extraction Family History Brother Hypertension Heart disease History of cardiac surgery; Diabetes Mother , in her 90s Diabetes Sister Breast cancer Father , 62yo Myocardial infarction Heart disease Hypertension Son No problems noted. Other No family history of adverse response to anesthesia Denies family history of Ovarian cancer Prostate cancer Colorectal cancer Social History Smoking Status: Former smoker Smoking End Date: Quit 1988 (Hx 2 PPD x 20 yrs); Second Hand Exposure: No; Do You Dip or Chew Tobacco: No; Tobacco Cessation Education Requested by Patient: No Hx Alcohol Use: Yes Alcohol type: beer Alcohol Intake Frequency: 2-3 x/Week Hx Substance Use: No Preferred Language: Danish Communication Ability: Effective Visual Impairment: No Limitations Hearing Ability: Normal Headlight Assembler Required: No Beliefs That Will Affect Care: None marital status: Current Living Situation: Spouse Current Living Situation Comment: Lives with Ingrid current occupational status: retired current occupation: Pharmacist How many Children do You have: 1 Other Information That Helps Us Care for You: No Feels Safe at Home: Yes Safety Concerns: Feels Safe At This Time Childhood Exposure to Second-Hand Smoke: No Diet: regular caffeine: Yes during the past year weight has: remained stable Dental Care, Regularly: Yes Physical Activity Frequency: Daily Seatbelt Use: always Sunscreen Use: Yes Assistive Devices: Cane and Glasses Review of Systems All systems reviewed & are unremarkable except as noted in HPI & below. Physical Exam On physical examination of the left knee, he is a slight varus deformity. He has tenderness palpation of the distal medial femoral condyle and over the medial joint line.. Constitutional WD/WN, vitals as above Eyes PERRL, conjunctivae normal, anicteric sclerae ENMT external ear and nose normal, oropharynx normal Neck trachea midline, no thyromegaly Respiratory normal respiratory effort, lungs clear to auscultation Cardiovascular RRR, no murmur, no edema Gastrointestinal (Abdomen) normal bowel sounds, soft, nontender, no hepatosplenomegaly Skin no rashes, warm and dry Psychiatric A+Ox3, euthymic affect Results & Data Results & Data Laboratory Results . Diagnostic Findings X-rays of the left knee show medial compartment arthritis with joint space narrowing, osteophyte formation, and [id number] articulation. PG Care Time/CCT Total # of Minutes Spent Total Time Spent with Patient: Total time spent is greater than 50% in coordination of care (as documented) at patient's floor/unit and/or counseling patient: Coding Level of Care Code None Diagnoses Osteoarthritis of left knee M17.12
[~2022-12-02 06:01] MED LIST changes: +ACETAMINOPHEN 500 MG TAB PO SCH; -ASPI81TA28 PO; -ATEN50TA8 PO; -CHOL20007 PO; +FAMOTIDINE 20 MG TAB PO SCH; +GABAPENTIN 300 MG CAP PO SCH; +LR 500ML BOLUS, THEN 15ML/HR IV SCH; +LR 60ML/HR IV SCH; -MAXZIDE PO; -MELO15TA10 PO; -OMEG10007 PO; +ORTHO JOINT MIX INFIL SCH; -SIMV20TA2 PO; -TRAM-10 PO; +TRANEXAMIC ACID 1,000 MG **IV Intra-op IV SCH; +TRANEXAMIC ACID 1,000 MG **IV Pre-op IV SCH; +ceFAZolin 2000MG 2,000 MG/15 ML SYR IV SCH; +dexAMETHasone 4 MG TAB PO SCH
[2022-12-02] MEDS ORDERED: ROPIVACAINE 0.5% 5 MG/ML 30 ML VIAL ONE (06:19)
--- NOTE | 2022-12-02 06:29 | History & Physical Bridge Note ---
Date of Service December 02, 2022 History & Physical Bridge Note I have examined the patient, reviewed the History & Physical and in the interval since the performance of the History & Physical I have noted the following changes of clinical significance: no changes noted
[2022-12-02] MEDS ORDERED: fentaNYL citrate PF 100 MCG/2 ML VIAL ONE (07:03)
[2022-12-02] MEDS ORDERED: MIDAZOLAM HCL 1 MG/ML 2ML VIAL ONE (07:03)
[2022-12-02] MEDS ORDERED: ORTHO JOINT ANESTHETIC ONE (07:12)
[2022-12-02] MEDS ORDERED: ATROPINE SULFATE 0.1 MG/ML 10ML SYR IV PRN (07:45)
[2022-12-02] MEDS ORDERED: HYDROmorphone INJ 1 MG/ML SYRINGE IV PRN (07:45)
[2022-12-02] MEDS ORDERED: ONDANSETRON INJ 2 MG/ML 2 ML VIAL IV PRN ×2 (07:45→11:32)
[2022-12-02] MEDS ORDERED: ePHEDrine sulfate 50 MG/ML AMP IV PRN (07:45)
[2022-12-02] MEDS ORDERED: PROPOFOL IV EMULSION 10 MG/ML 20 ML VIAL IV ONE ×2 (08:12→09:20)
--- NOTE | 2022-12-02 10:10 | Operative Report ---
PG Post Operative Report Pre & Post Diagnosis Operation Date: 12/02/22 08:00 Pre-Op Diagnosis: Degenerative Joint Disease Left Knee Post-Op Diagnosis: Degenerative Joint Disease Left Knee I identified the patient and participated in the time-out.: Yes Procedure Operation Date: 12/02/22 08:00 Actual Procedures p Left Unicompartment Knee Arthroplasty(Left) - Dylan Babcock DO Surgeon Dylan Babcock DO Clinical Partner Dylan Dan PA-C Estimated Blood Loss 20 Findings Consistent with Post-Op Diagnosis Specimens Left femoral and tibial bone Description of Procedure Implants used: I used a Dmitry Biomet persona partial knee replacement system with a size 6 femoral component, a size F tibial component, and a size 10 polyethylene spacer. All components were cemented with Biomet cement. On December 02, 2022 Gavin arrived at [facility] for the above procedure. He was seen in the preoperative holding area and the operative extremity was identified and signed. He was given a preoperative antibiotic and a spinal anesthetic. He was taken back the operative room and laid on the table in supine position. He was put under basic sedation. The left knee was then prepped and draped in sterile fashion. A timeout was done. The patient and the operative extremity was properly identified. A midline incision was made just medial to the patella. Dissection was taken down to the extensor mechanism. A small medial parapatellar arthrotomy was made. A small portion of the fat pad was excised. A small portion of the m edial retinaculum was released. The medial meniscus was removed. The knee was then flexed. The ACL and PCL were intact. There was no cartilage damage laterally. There was minimal cartilage loss on the medial trochlea. There was severe arthritis in the medial compartment. A decision was made to do a partial knee replacement surgery. An external tibial guide was used and 4 mm was resected off the medial tibial plateau. The knee was brought in full extension. The distal femoral cut was made. The knee was then flexed. The distal femur measured to be a size 6. A cutting block was pinned into place and screw holes were made and chamfer cuts were made. The tibia was then exposed. The tibia measured to be a size F. 2 peg holes were drilled. The femoral component trial was then impacted into place. A 10 mm trial spacer was then snapped into place. The knee was brought through full range of motion and felt to be stable. The trial components were then removed. Surrounding soft tissues were injected with an orthopedic pain control cocktail. Hemostasis was obtained. The final components were then cemented in place with Biomet cement. A size 10 mm polyethylene insert was then snapped into place. Once cement had dried, the knee was brought through full range of motion was felt to be stable. The wound was then irrigated. The extensor mechanism was closed with #1 Vicryl. Skin was closed with 2-0 Vicryl, 3 oh V-Loc suture, and angie. He was then placed in a soft compressive dressing. He was transferred to a hospital bed and taken to the postanesthesia care unit in stable condition. He tolerated the procedure well. Dylan Dan PA-C, was present for the entire procedure. He was critical for patient positioning, prepping, draping, retraction exposure, wound closure and application of sterile dressing. I attest to the content of the Intraoperative Record and any orders documented therein. Any exceptions are noted below.
--- NOTE | 2022-12-02 10:11 | XRay Report ---
XR knee LT 1 or 2V routine HISTORY: 77 years-old Male Surgical Post Op left knee arthroplasty COMPARISON: 10/05/2022 TECHNIQUE: 2 views of the left knee FINDINGS: Arterial calcifications. Medial compartment hemiarthroplasty. Anterior midline skin angie and expec rakesh postoperative soft tissue swelling and deep tissue air. Moderate patellofemoral with mild lateral compartment osteoarthritis. IMPRESSION: Medial compartment hemiarthroplasty with expected postoperative changes. ACT 112: Negative or not required by law. The above report was generated using voice recognition software. It may contain grammatical, syntax o r spelling errors. Electronically signed by: Jordan Coleman M.D. 12/02/2022 10:10 AM
--- NOTE | 2022-12-02 10:30 | Anesthesiology Progress Note ---
Date of Service December 02, 2022 Anesthesia Post Procedure Vital Signs Vital Signs: Temp Pulse Pulse Resp BP Pulse Ox O2 Del Method 12/02/22 10:15 36.3 C L 64 17 129/81 95 Room Air 12/02/22 10:05 64 14 125/74 94 Room Air 12/02/22 09:55 69 22 110/65 95 Room Air 12/02/22 09:45 66 16 116/64 97 Oxymask 12/02/22 09:35 68 17 105/56 L 97 Oxymask 12/02/22 09:27 37 C 71 19 111/67 97 Oxymask 12/02/22 06:30 36.8 C 70 18 150/84 H 94 Room Air O2 Flow Rate 12/02/22 10:15 12/02/22 10:05 12/02/22 09:55 12/02/22 09:45 5 12/02/22 09:35 5 12/02/22 09:27 5 12/02/22 06:30 Pain Intensity Left Knee: Pain Intensity: 6 Transfer of Care Handoff Completed per policy Notes Mental Status: alert / awake / arousable Patient Amnestic to Procedure: Yes Nausea / Vomiting: adequately controlled Pain: adequately controlled Airway Patency, RR, SpO2: stable & adequate BP & HR: stable & adequate Hydration State: stable & adequate Neuraxial Anesthesia: was administered and sensory block is resolving Anesthetic Complications: no major complications apparent
[2022-12-02] MEDS ORDERED: HYDROmorphone INJ 0.5 MG/0.5 ML SYR IV PRN (11:32)
[2022-12-02] MEDS ORDERED: bisacodyL 10 MG SUPP PR PRN (11:32)
[2022-12-02] MEDS ORDERED: METOCLOPRAMIDE HCL INJ 5 MG/ML 2 ML VIAL IV PRN (11:32)
[2022-12-02] MEDS ORDERED: PHARMACY GLYCEMIC MGMT CONSULT PRN (11:32)
[2022-12-02] MEDS ORDERED: NALOXONE HCL 0.4 MG/1 ML VIAL/CARP IV PRN (11:32)
[2022-12-02] MEDS ORDERED: LORazepam 0.5 MG TAB PO PRN (11:32)
[2022-12-02] MEDS ORDERED: MAGNESIUM HYDROXIDE SUSP 30 ML UDC PO PRN (11:32)
[2022-12-02] MEDS ORDERED: oxyCODONE HCL IR 5 MG TAB (IMMEDIATE RELEASE) PO PRN (11:32)
[2022-12-02] MEDS ORDERED: SODIUM CHLORIDE 0.9% 1000ML 1,000 ML IV SCH (11:32)
[2022-12-02] MEDS ORDERED: GLUCOSE 10 TAB/TUBE PO PRN (12:00)
[2022-12-02] MEDS ORDERED: GLUCAGON FOR INJ 1 MG VIAL IM PRN (12:00)
[2022-12-02] MEDS ORDERED: DEXTROSE 50% 50 ML SYRINGE IV PRN (12:00)
[2022-12-02] MEDS ORDERED: CARBOHYDRATES FOR HYPOGLYCEMIA PO PRN (12:00)
[2022-12-02] MEDS ORDERED: GLUCOSE 40% GEL 15 GM TUBE PO PRN (12:00)
[2022-12-02] MEDS: KETOROLAC TROMETHAMINE 15 MG/ML VIAL IV SCH ×3 (12:26→22:41)
[2022-12-02] MEDS ORDERED: NovoLIN-N (NPH) PER UNIT CHARGE SQ ONE (12:30)
[2022-12-02] MEDS ORDERED: LANTUS PER UNIT CHARGE SC ONE (12:30)
--- NOTE | 2022-12-02 12:40 | Pharmacy Report ---
Pharmacy Glycemic Short Note 2 - Date of Service December 02, 2022 - Glycemic Short BSG Results (Last 24 hours): 12/02/22 12/02/22 06:20 12:19 POC Glucose 157 H 194 H OUTPATIENT ANTIDIABETIC REGIMEN: * metformin 500 mg PO BIDM * HbA1C = 7.0% (11/08/22) ASSESSMENT: * Mr Gonzalez is a 77 y/o M with a PMH of T2DM on metformin who presents for L knee replacement. Today is POD 0. * Preop BSG was 157 mg/dL. Postop BSG was 194 mg/dL. * Patient received dexamethasone 8 mg PO preoperatively. * Will provide NPH 35 units (0.4 units/kg) due to dexamethasone PO. Will provider Lantus 15 units (0.2 units/kg) since preop fasting BSG > 140 mg/dL. Subsequent dosing to be based off response. * Novolog weight-based stress of 3 for steroid hyperglycemia. PLAN FOR INPATIENT GLYCEMIC CONTROL: * Hold outpatient oral diabetes medications * Basal insulin * Lantus 15 units SQ x 1 * NPH 35 units SQ x 1 * Bolus insulin * NovoLog per scale ACHS or Q6hrs while NPO * Goal Range: Low 110 mg/dL - High 140 mg/dL * Correction Factor: 20 mg/dL/unit * Nutritional / Prandial insulin per carb ratio of 1 unit per 6 grams CHO consumed
[2022-12-02] MEDS: INSULIN ASPART PER UNIT CHARGE SC SCH ×3 (13:34→20:27)
[2022-12-02] MEDS: ACETAMINOPHEN 500 MG TAB PO SCH ×2 (15:05→22:40)
[2022-12-02] MEDS: ceFAZolin 2000MG 2,000 MG/15 ML SYR IV SCH (17:17)
[2022-12-02] MEDS: ASPIRIN 81 MG ECTAB PO SCH (20:19)
[2022-12-02] MEDS: LOSARTAN POTASSIUM 50 MG TAB PO SCH (20:20)
[2022-12-02] MEDS: DOCUSATE SODIUM 100 MG CAP PO SCH (20:20)
[2022-12-02] MEDS ORDERED: LATANOPROST 0.005% OP SOLN 2.5 ML BTL OP SCH (21:00)
[2022-12-02] MEDS ORDERED: SIMVASTATIN 10 MG TAB PO SCH (21:00)
[2022-12-02] MEDS ORDERED: SENNA 8.6 MG TAB PO SCH (21:00)
[2022-12-03] MEDS: ceFAZolin 2000MG 2,000 MG/15 ML SYR IV SCH (00:50)
[2022-12-03 03:40] VITALS: TEMP 98.1; O2SAT 96
[2022-12-03] MEDS: KETOROLAC TROMETHAMINE 15 MG/ML VIAL IV SCH (06:05)
[2022-12-03] MEDS: ACETAMINOPHEN 500 MG TAB PO SCH (06:06)
[2022-12-03 07:32] VITALS: BP 160/88; PULSE 63
[2022-12-03] MEDS ORDERED: LANTUS PER UNIT CHARGE SC SCH (09:00)
[2022-12-03] MEDS ORDERED: MULTIVITAMIN TAB PO SCH (09:00)
[2022-12-03] MEDS ORDERED: VIBEGRON 75 MG TAB PO SCH (09:00)
[2022-12-03] MEDS ORDERED: amLODIPine BESYLATE 5 MG TAB PO SCH (09:00)
[2022-12-03] MEDS ORDERED: TAMSULOSIN HCL 0.4 MG CAP PO SCH (09:00)
[2022-12-03] MEDS: ASPIRIN 81 MG ECTAB PO SCH (09:04)
[2022-12-03] MEDS: DOCUSATE SODIUM 100 MG CAP PO SCH (09:05)
[2022-12-03] MEDS: LOSARTAN POTASSIUM 50 MG TAB PO SCH (09:05)
--- NOTE | 2022-12-03 09:11 | Orthopedic Progress Note ---
Date of Service December 03, 2022 Assessment & Plan (1) Status post left partial knee replacement: Overall he is doing very well. He is not having much pain in the left knee. He has been up and ambulating around the room. He is on aspirin for DVT prophylaxis. He will be seen by physical therapy today for ambulation and range of motion exercises. His dressing can be changed after physical therapy. He can be discharged home later today. He will follow-up with orthopedics in 2 weeks. Eze Alonso was seen and examined at bedside this morning. Overall is doing very well. He is not having much pain in the left knee. He has been up and ambulating around the room and into the hallways. He has no complaints.. Review of Systems All systems reviewed & are unremarkable except as noted in HPI & below. Physical Exam On physical examination of left knee, the dressing is clean and dry. He has active dorsiflexion plantarflexion of his left ankle.. Results & Data Results & Data Laboratory Results . Diagnostic Findings Postoperative x-rays of the left knee show the prosthesis to be in anatomic alignment without any evidence of fracture, dislocation, or loosening.. PG Care Time/CCT Total # of Minutes Spent Total Time Spent with Patient: Total time spent is greater than 50% in coordination of care (as documented) at patient's floor/unit and/or counseling patient: Coding Level of Care Code 65828 Post Operative Follow-Up Diagnoses Status post left partial knee replacement Z96.652
--- NOTE | 2022-12-03 09:12 | Discharge Summary ---
Date of Service December 03, 2022 Admission HPI (Per Admitting) Cristel is a pleasant 77-year-old male who I did a right partial knee replacement on in 2019. He has done very well with that. Unfortunately, he has been dealing with left knee pain. He has been seen by my partners. 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 After failed conservative treatment, he has elected proceed with a left partial knee replacement surgery. Admission Exam (Per Admitting) On physical examination of the left knee, he is a slight varus deformity. He has tenderness palpation of the distal medial femoral condyle and over the medi al joint line.. Principal Diagnosis Same as "Discharge Diagnosis" noted below under Discharge Instructions. Discharge Exam On physical examination of left knee, the dressing is clean and dry. He has active dorsiflexion plantarflexion of his left ankle.. Discharge Data Procedures Performed Operation Date: 12/02/22 08:00 Actual Procedures p Left Unicompartment Knee Arthroplasty(Left) - Dylan Babcock DO Ordered Studies 12/02/22 05:00 US - OR guided needle placemen Routine Hospital Course (1) Status post left partial knee replacement: On December 02, 2022 Gavin arrived at [facility] and underwent a left partial knee replaced without complication. He had a spinal anesthetic. Postoperatively he was started on aspirin for DVT prophylaxis and transferred to the general orthopedic floors. His hospital course was uneventful. On postop day #1, his vital signs were stable and his pain was well controlled. He was able to participate well with physical therapy doing ambulation and range of motion exercises. He was then discharged home. He will follow-up with orthopedics in 2 weeks. PG Care Time/CCT Total # of Minutes Spent Total Time Spent with Patient: Total time spent is greater than 50% in coordination of care (as documented) at patient's floor/unit and/or counseling patient: Discharge Plan Discharge Items Patient Disposition: Home - Home Health Services Reason For Visit: DJD Left Knee Discharge Diagnosis: Left knee replacement Activity: Per Instructions section Non-emergency contact: Surgeon Call non-emergency contact if: your wound has increased redness and your wound has increased drainage Follow-up/Referrals: Sera El MD [Primary Care Provider] - Diet: Regular Addtl Attending Provider Instructions: Activity and Therapy Recommendations: * If you are using [facility] then therapy will be provided at your home until they feel you have accomplished all of your goals. * If you are using [facility] then Physical Therapy will be provided until they feel you are ready to start Outpatient Physical Therapy. * If you are not using home therapy then Outpatient Physical Therapy should start about 3-5 days from your day of surgery. Therapy will last about 6-10 weeks * It is important not to put a pillow under your knee when you are relaxing or sleeping. It is just as important to make sure you are getting your knee perfectly straight as it is to regain your knee bend. * You were shown a series of exercises in the hospital. Do these exercises three times each day including the exercises you were shown in physical therapy. * Get up and walk several times each day. For the first four weeks, try not to stand or walk for more than one hour at a time. If you do stand or walk for more than one hour, you will not hurt anything, but your leg will likely swell. * As you feel comfortable, you may change from the walker or crutches to a cane and then to independent walking. Medications: * Narcotic You will likely be sent home from the hospital with a prescription for the narcotic pain medication that worked best throughout your stay. * Aspirin Most patients will be required to take Aspirin 81mg twice a day for 6 weeks after surgery. This is obtained [id number] and a prescription is not necessary. * Other medications may be prescribed for specific circumstances. If you have any questions, please call the office at . * Resume previous home medications unless otherwise instructed TEDs/Elastic Stockings: The white elastic stockings help limit swelling and prevent blood clots from forming in your legs.~ The more you wear them, the more they work. Wear them for six weeks. Dressing Care: The dressing can be changed after physical therapy on postop day #1. Daily dry dressing changes for a few days, especially if the incision is still draining some. If the incision is not draining then you may leave the angie open to air. If there is a little bit of drainage or if the angie are getting stuck on your clothing then cover the incision with a dry dressing. The angie will be removed at your 2 week follow-up appointment. Showering: You may shower 5 days from the day of surgery as long as the incision is no longer draining. You may shower with the angie exposed. Let soapy water run over the angie and pat them dry. Do not scrub or soak the incision. Things To Watch For: * Drainage from the incision site that occurs more than one week after your surgery. * Increased redness at the incision site. * Fever above 102 degrees Fahrenheit. * Unusual chest pain or shortness of breath. * Call [facility] at with any of the above problems Follow-Up Visit: Follow-up with Dr. Babcock's PA (Dylan Dan) 2-3 weeks after your day of surgery. He will remove your angie and answer any questions. If you have any additional questions or concerns, Dr Babcock is usually in the office at the same time and will be available An appointment was probably scheduled when you signed-up for surgery in the office. If you have any questions call Office Instructions: More detailed instructions as well as Frequently Asked Questions were provided in a folder by our office when you signed-up for surgery. Please review these instructions when you get home. If you have any further questions or concerns, please feel free to call the office at [phone] Pending Studies at Discharge: No Stand-Alone Forms: My [facility], Smoking Cessation Medications and DC Order Prescriptions: New oxycodone-acetaminophen 5-325 mg tablet 1 tab PO Q6H PRN (Reason: pain) Qty: 30 0RF Continued calcium carbonate-vitamin D3 [Calcium with Vitamin D] 600 mg-10 mcg (400 unit) tablet 1 tab PO QAM omega 1-xva-rdm-fish oil [Fish Oil] 1,200 (144-216) mg capsule 1 cap PO BID Metamucil (with sugar) 3 gram/7 gram powder 1 tbsp PO BID PRN (Reason: Constipation) vibegron 75 mg tablet 75 mg PO DAILY (DME) blood-glucose meter [OneTouch UltraMini] kit See Dose Instructions .ROUTE .MEDSUPPLY Qty: 1 0RF Dose Instruction: As directed Rx Instructions: Test daily (DME) lancets [OneTouch UltraSoft Lancets] misc See Dose Instructions .ROUTE .MEDSUPPLY Qty: 100 1RF Dose Instruction: As directed Rx Instructions: Test once daily losartan 50 mg tablet 50 mg PO BID Qty: 180 3RF metformin 500 mg tablet 500 mg PO BID Qty: 180 3RF meloxicam 15 mg tablet 15 mg PO QAM Qty: 90 3RF simvastatin 10 mg tablet 10 mg PO QPM Qty: 90 3RF tramadol 50 mg tablet 50 mg PO Q6H PRN (Reason: pain) Qty: 20 0RF (DME) blood sugar diagnostic Strip See Dose Instructions .ROUTE .MEDSUPPLY Qty: 100 1RF Dose Instruction: As directed Rx Instructions: Test once daily lorazepam [Ativan] 0.5 mg tablet 0.5 mg PO BID PRN (Reason: anxiety) Qty: 60 0RF tamsulosin 0.4 mg capsule 0.4 mg PO QAM cholecalciferol (vitamin D3) [Vitamin D3] 50 mcg (2,000 unit) Capsule 50 mcg PO BID amlodipine 10 mg tablet 10 mg PO QAM latanoprost 0.005 % drops 1 drp ophthalmic (eye) PM Changed aspirin 81 mg Tablet,Delayed Release (Dr/Ec) 81 mg PO BID 42 Days Qty: 0 0RF Admission Data Admit Date/Time: 12/02/22 09:27 Attending Provider: Dylan Babcock Admit Provider: Dylan Babcock Primary Care Provider: Sera El
[2022-12-03] MEDS: INSULIN ASPART PER UNIT CHARGE SC SCH (09:18)
[2022-12-03] MEDS ORDERED: INSULIN ASPART PER UNIT CHARGE SC SCH (11:30)
== END 2022-12-03 11:25 | disposition home health service (06) ==
LOC: ASU 06:01 → PACUINP 06:01 → 3N 11:27

== ENCOUNTER 2024-06-27 10:07 | Observation (INO) ==
--- NOTE | 2024-06-27 10:30 | Emergency Department Note ---
Impression & Plan Incarcerated inguinal hernia, Severe right groin pain ED Provider Note NAME: BENITEZ CISNEROS AGE: 78 SEX: M : 1945 ARRIVES VIA: Walk-In INFORMANT: [Patient][] ED PROVIDER(S): [Rory Torres MD] CHIEF COMPLAINT: Groin pain HISTORY OF PRESENT ILLNESS: Patient is a 78-year-old male with a known a right inguinal hernia. He has seen general surgery and is scheduled for an operation on the of this month, in 13 days. The patient states that for 4 days, he has not been able to reduce the right inguinal hernia. Last night, the pain was quite intense. He has not had vomiting. He does feel like his right hemiscrotum is now swollen and there is some pain in the right testicle. He is able to urinate without difficulty, his bowel movements have been more difficult but he is able to have a bowel movement. No fever. No cough or congestion. His last solid food intake was at 6 PM last night. He did have some water and typical medications this morning. The patient did contact his surgical office today, there was no answer, he presents to the ER. PMHx/PSHx/Social Hx: See Below PHYSICAL EXAM: GENERAL: Patient is in no acute distress. HEENT: No acute trauma, normocephalic atraumatic, mucous membranes moist, no nasal congestion. NECK: No stridor, no adenopathy, no meningismus, trachea is midline. LUNGS: Clear to auscultation bilaterally, no wheeze, no rhonchi, breath sounds equal. HEART: Without murmurs gallops or rubs, regular rate and rhythm. ABDOMEN: Soft, nontender, no peritonitis. EXTREMITIES: No cyanosis, full range of motion of all the joints without pain or difficulty. NEUROLOGIC: Oriented x 3, no acute motor or sensory deficits, no focal weakness. SKIN: No jaundice, no diaphoresis. Groin: He is circumcised. There is a large presumed right inguinal hernia which is tender and firm. It extends down into the right hemiscrotum. Reduction attempts failed. DIFFERENTIAL DIAGNOSIS: Incarcerated inguinal hernia, bowel obstruction, failed outpatient management, among others. EMERGENCY DEPARTMENT PROCEDURES: MEDICAL DECISION MAKING: There is a slight leukocytosis, this could be from his pain or possibly infection. There is no anemia, there is a normal platelet count. No renal failure or significant electrolyte abnormality. No concerning liver enzyme elevation. Abdominal and pelvis CT shows an incarcerated right inguinal hernia, there was colon present within the hernia. On exam, the right groin was full and quite tender. The patient was not febrile or toxic. I did speak with general surgery. They requested the CT imaging. After the CT results returned, surgery again talked with the patient. The patient is being transferred to the operating room for surgical intervention. During the patient's ED stay, he was made NPO. He was given IV morphine for pain, he was given IV Zofran for nausea. He received a small IV saline bolus. I did speak with case management. The patient is aware of his findings and the need for surgical intervention. Prior/Outside records/notes reviewed: General surgical note from 05/28/2024 discussing his hernia, findings and planned surgery. Imaging/x-ray results per my interpretation: Chronic Medical/Social conditions affecting care: Advanced age. Care/Management discussed with: General Surgery-Dr. Pineda. Level of care consideration(s): After review of the information above and other included data: --I believe the patient requires escalation of care to admission DISPOSITION: Admission Past Med/Surg History Problem List (Updated 06/27/24 @ 15:19 by Rory Torres MD) Severe right groin pain (Acute) Incarcerated inguinal hernia (Acute) Incarcerated right inguinal hernia Osteoarthritis of right knee Constipation Rupture quadriceps tendon Wound dehiscence Internal hemorrhoids Rectal bleeding Insomnia COVID-19 (Acute) Nocturia more than twice per night Benign essential hypertension Atypical chest pain 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 Urinary frequency Syncope and collapse Non-cardiac chest pain Hospital discharge follow-up Chest pressure (Acute) Renal artery aneurysm Left buttock pain Left hip pain Left shoulder pain Osteoarthritis of left knee Androgen deprivation therapy Wrist fracture, closed Fall from horse Cerumen impaction Screening for thyroid disorder Encounter for pre-operative examination Lung nodule, multiple Elevated PSA Osteoarthritis Type 2 diabetes mellitus NIDDM 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 Vasovagal syncope Occasional, did tilt table test Pulmonary nodule Annual surveillance Reducible right inguinal hernia present Hypertension stable per pt Surgical History S/P tendon repair 04/06/23 [facility] History of brachytherapy Brachytherapy (05/26/21): Grade view 3, MAC#4, ETT 7.5 at [facility] History of total right knee replacement Right TKA (12/17/19): SAB at L3-L4, 1 attempt + PNB at [facility]. No issues per anesthesia postop progress note. History of prostate biopsy History of nasal surgery Polyps removed History of arthroscopy of right knee 01/02/2018: LMA#5 at [facility]. No issues per anesthesia postop progress note. History of cystoscopy History of colonoscopy History of laminectomy Lumbar spine History of removal of cyst sebaceous cyst (removed off neck) History of wisdom tooth extraction History of tonsillectomy and adenoidectomy Family History Brother Hypertension Heart disease History of cardiac surgery; Diabetes Mother , in her 90s Diabetes Sister Breast cancer Father , 62yo Myocardial infarction Heart disease Hypertension Son No problems noted. Other No family history of adverse response to anesthesia Denies family history of Ovarian cancer Prostate cancer Colorectal cancer Social History Smoking Status: Former smoker Tobacco Type: Cigarettes Age Started Using Tobacco: 17; Age Quit Using Tobacco: 43; packs per day: 2; Second Hand Exposure: No; Do You Dip or Chew Tobacco: No; Hx Alcohol Use: Yes Alcohol type: beer Alcohol Intake Frequency: 2-3 x/Week Hx Substance Use: No Preferred Language: Belarusian Communication Ability: Effective Visual Impairment: No Limitations Hearing Ability: Normal Damper Worker Required: No Beliefs That Will Affect Care: None marital status: Current Living Situation: Spouse Current Living Situation Comment: Lives with Ingrid current occupational status: retired current occupation: Pharmacist How many Children do You have: 1 Feels Safe at Home: Yes Childhood Exposure to Second-Hand Smoke: No Diet: regular caffeine: Yes during the past year weight has: remained stable Dental Care, Regularly: Yes Physical Activity Frequency: Daily Seatbelt Use: always Sunscreen Use: Yes Assistive Devices: Glasses Allergies Allergies Allergy/AdvReac Type Severity Reaction Status Date / Time celecoxib [From Celebrex] Allergy Mild Rash Verified 06/17/24 12:25 lisinopril AdvReac Mild Headache, Verified 06/17/24 12:25 cough Home Meds Home Medications Medication Instructions Recorded Confirmed omega 7-bxg-yyl-fish oil 1,200 mg 1 cap PO BID 04/14/21 06/27/24 (144 mg-216 mg) capsule (Fish Oil) psyllium husk (with sugar) 3 1 tbsp PO BID PRN Constipation 12/08/21 06/27/24 gram/7 gram oral powder (Metamucil (with sugar)) calcium 600 mg (as 1 tab PO QAM 05/17/22 06/27/24 carbonate)-vitamin D3 10 mcg (400 unit) tablet (Calcium with Vitamin D) cholecalciferol (vitamin D3) 50 50 mcg PO BID 10/31/22 06/27/24 mcg (2,000 unit) capsule (Vitamin D3) Previous Rx's Medication Instructions Recorded blood-glucose meter (OneTouch #1 ea 01/24/19 UltraMini kit) lancets (OneTouch UltraSoft #100 ea 01/24/19 Lancets) albuterol sulfate 90 mcg/actuation 2 puff inhalation QID PRN 01/06/23 aerosol inhaler shortness of breath or wheezing #6.7 grams amoxicillin 500 mg tablet 2,000 mg (4 x 500 mg) PO ONCE #4 05/24/23 tabs blood sugar diagnostic #100 ea 07/11/23 metformin 500 mg tablet 500 mg PO BID #180 tabs 07/17/23 meloxicam 15 mg tablet 15 mg PO QAM #90 tabs 08/28/23 simvastatin 10 mg tablet 10 mg PO QPM #90 tabs 09/04/23 blood-glucose meter,continuous #1 ea 02/09/24 (FreeStyle Stephon 3 [place]) blood-glucose sensor (FreeStyle #1 ea 02/16/24 Stephon 3 Sensor device) lorazepam 0.5 mg tablet (Ativan) 0.5 mg PO BID PRN anxiety #60 tabs 03/18/24 isosorbide mononitrate 30 mg 30 mg PO QPM #90 tabs 04/26/24 tablet,extended release 24 hr losartan 50 mg tablet 50 mg PO BID #180 tabs 04/26/24 amlodipine 10 mg tablet 10 mg PO QAM #90 tabs 05/06/24 empagliflozin 10 mg tablet 10 mg PO DAILY #90 tabs 06/10/24 (Jardiance) tamsulosin 0.4 mg capsule 0.4 mg PO BIDWMEAL weak stream 06/10/24 #180 caps trazodone 50 mg tablet 50 - 100 mg (1 - 2 x 50 mg) PO HS 06/10/24 PRN insomnia #90 tabs vibegron 75 mg tablet 75 mg PO DAILY #90 tabs 06/10/24 hydrocortisone 2.5 % topical cream 1 applic topical BID PRN skin 06/17/24 irritation #20 grams Results & Data (ED) Vital Signs Vital Signs - 24 hr 06/27/24 10:13 06/27/24 11:04 06/27/24 11:09 Temperature 36.9 C Temperature Source Temporal Artery Scan Pulse Rate 84 68 Pulse Rate [Apical] 63 Pulse Rate [Right Finger] Pulse Rate from SpO2 Sensor 67 Pulse Rhythm [Right Finger] Pulse Strength [Right Finger] Respiratory Rate 16 16 20 Respiratory Effort / Characteristics Non-Labored Spontaneous Non-Labored Spontaneous Respiratory Depth Normal Normal Respiratory Pattern Blood Pressure 179/91 H 128/73 Blood Pressure [Left Arm] 128/73 Blood Pressure Mean 120 91 Blood Pressure Mean [Left Arm] 91 Blood Pressure Position [Left Arm] Semi-fowlers Pulse Oximetry 94 92 91 Oxygen Delivery Method Room Air Room Air Sepsis Recent Fever Within 48 Hours No Sepsis New/Unexplained Change in Mental Status No Sepsis Action Taken by Nursing No Action Required 06/27/24 11:14 06/27/24 11:33 06/27/24 13:12 Temperature Temperature Source Pulse Rate 66 63 78 Pulse Rate [Apical] Pulse Rate [Right Finger] Pulse Rate from SpO2 Sensor 63 Pulse Rhythm [Right Finger] Pulse Strength [Right Finger] Respiratory Rate 16 18 Respiratory Effort / Characteristics Respiratory Depth Respiratory Pattern Blood Pressure 129/78 Blood Pressure [Left Arm] Blood Pressure Mean Blood Pressure Mean [Left Arm] Blood Pressure Position [Left Arm] Pulse Oximetry 93 99 Oxygen Delivery Method Room Air Sepsis Recent Fever Within 48 Hours Sepsis New/Unexplained Change in Mental Status Sepsis Action Taken by Nursing 06/27/24 13:20 Temperature 36.7 C Temperature Source Oral Pulse Rate Pulse Rate [Apical] Pulse Rate [Right Finger] 70 Pulse Rate from SpO2 Sensor Pulse Rhythm [Right Finger] Regular Pulse Strength [Right Finger] Normal Respiratory Rate 18 Respiratory Effort / Characteristics Non-Labored Spontaneous Respiratory Depth Normal Respiratory Pattern Regular Blood Pressure Blood Pressure [Left Arm] 136/76 Blood Pressure Mean Blood Pressure Mean [Left Arm] 96 Blood Pressure Position [Left Arm] Lying Pulse Oximetry 97 Oxygen Delivery Method Room Air Sepsis Recent Fever Within 48 Hours Sepsis New/Unexplained Change in Mental Status Sepsis Action Taken by Usp Medications Current Medication List: was personally reviewed by me Laboratory Data Attestation: I reviewed the patient's lab results. 06/27/24 10:35 06/27/24 10:35 Lab Results 06/27/24 Range/Units 10:35 WBC 11.83 H (4.8-10.8) K/ul RBC 5.59 (4.70-6.10) M/uL Hgb 15.9 (14.0-18.0) g/dl Hct 47.3 (42.0-52.0) % MCV 84.6 (80.0-100.0) fL MCH 28.4 (25.0-34.0) pg MCHC 33.6 (32.0-36.0) g/dL RDW Std Deviation 45.7 (36.4-46.3) fL RDW Coeff of Sancho 15.0 H (11.5-14.5) % Plt Count 256 (130-400) K/uL MPV 9.1 L (9.4-12.4) fL Immature Gran % (Auto) 0.3 % Neut % (Auto) 79.6 % Lymph % (Auto) 7.2 % [place] % (Auto) 11.0 % Eos % (Auto) 1.6 % Baso % (Auto) 0.3 % Neut # (Auto) 9.41 H (1.40-6.50) K/uL Lymph # (Auto) 0.85 L (1.20-3.40) K/uL [place] # (Auto) 1.30 H (0.11-0.59) K/uL Eos # (Auto) 0.19 (0.00-0.50) K/uL Baso # (Auto) 0.04 (0.00-0.20) K/uL Immature Gran # (Auto) 0.04 (0.01-0.20) K/uL Sodium 139 (136-145) mmol/L Potassium 4.1 (3.5-5.1) mmol/L Chloride 106 (98-107) mmol/L Carbon Dioxide 26 (21-32) mmol/L Anion Gap 7 (3-11) BUN 18 (6-23) mg/dl Creatinine 0.86 (0.6-1.4) mg/dl Est Cr Clr Drug Dosing 67.3 ml/min eGFR 89.18 BUN/Creatinine Ratio 20.9 H (10-20) Glucose 137 H (70-99(Fasting)) mg/dl Calcium 9.3 (8.6-10.3) mg/dl Total Bilirubin 0.7 (0.2-1.0) mg/dl AST 16 (13-39) U/L ALT 15 (7-52) U/L Alkaline Phosphatase 44 (34-104) U/L Total Protein 7.1 (6.0-8.3) gm/dl Albumin 4.3 (3.4-5.0) gm/dl Globulin 2.8 (2.5-4.0) gm/dl Albumin/Globulin Ratio 1.5 (0.9-2) Administered Medications Discontinued Medications Bupivacaine HCl/Epinephrine Bitart (Bupivacaine/Epinephrine 0.25% 1:200,000 30 Ml Vial) Confirm Administered Dose 30 ml .ROUTE .STK-MED ONE Stop: 06/27/24 13:16 Last Admin: 06/27/24 14:43 Dose: 30 ml Documented By: Cefazolin Sodium (Cefazolin 2,000 Mg/15 Ml Iv Push) Confirm Administered Dose 2,000 mg IV .STK-MED ONE Stop: 06/27/24 13:34 Last Admin: 06/27/24 14:44 Dose: Not Given Documented By: LDV Sodium Chloride (Nss) 500 mls @ 999 mls/hr IV .Q31M ONE Stop: 06/27/24 11:11 Last Infusion: 06/27/24 12:53 Dose: Infused Documented By: Admin: 06/27/24 11:01 Dose: 999 mls/hr Documented By: IMSAEL Cefazolin Sodium (Ancef 2000mg) 2,000 mg in 15 mls @ 3.75 mls/min IV PREOP ONE; Protocol Stop: 06/27/24 13:35 Last Admin: 06/27/24 13:37 Dose: 3.75 mls/min Documented By: SONIA Ioversol (Optiray 320 100ml) 94 ml IV ONCE ONE Stop: 06/27/24 11:48 Last Admin: 06/27/24 11:47 Dose: 94 ml Documented By: MARY Miscellaneous ( Floseal Hemostatic Matrix 10ml) 10 ml TOP ONCE ONE Stop: 06/27/24 14:45 Last Admin: 06/27/24 14:44 Dose: 10 ml Documented By: LUIS M(2) Morphine Sulfate (Morphine Sulfate 2 Mg/Ml Carp) 2 mg IV NOW STA Stop: 06/27/24 10:42 Last Admin: 06/27/24 11:01 Dose: 2 mg Documented By: ISMAEL Ondansetron HCl (Ondansetron Inj 2 Mg/Ml 2 Ml Vial) 4 mg IV NOW STA Stop: 06/27/24 10:42 Last Admin: 06/27/24 11:01 Dose: 4 mg Documented By: ISMAEL Imaging Data Radiologist's Impression: Abdomen/Pelvis CT 06/27/24 10:[address] WITH IV CONTRAST CT DOSE: 1310.71 mGy.cm HISTORY: right inguinal hernia TECHNIQUE: Multiaxial CT images of the abdomen and pelvis were performed following the IV administration of 90 cc of Optiray, A dose lowering technique was utilized adhering to the principles of ALARA. COMPARISON STUDY: 04/22/2024 FINDINGS: ABDOMEN: Liver, gallbladder, spleen, and adrenal glands are unremarkable. Stable pancreatic ductal dilatation. Stable small cystic findings in the pancreas, largest at the posterior pancreatic body measures 1.5 cm. Stable duodenal diverticulum measuring 4 cm. Kidneys show no hydronephrosis or calculi. There are scattered atherosclerotic calcifications. No abdominal aortic aneurysm. Pelvis: Prostate seeds are stable. Urinary bladder is nondistended. There is sigmoid diverticulosis. No acute diverticulitis. The sigmoid colon is redundant. There is a right inguinal hernia which contains a loop of sigmoid colon. There is adjacent inflammation and a small amount of fluid within the hernia sac consistent with incarceration, interval. The hernia is increased in size measuring 5 cm axially and more of the sigmoid colon is within the hernia sac. No other bowel inflammation or obstruction seen. There is moderate retained stool. Normal appendix. No free air or abscess. No enlarged adenopathy. Osseous structures: There is diffuse lumbar degenerative disc disease. IMPRESSION: 1. Right inguinal hernia containing a loop of sigmoid colon with acute incarceration. 2. No other acute findings seen. 3. Stable findings at the pancreas likely represent IPMN. Follow-up exam recommended in one year to monitor stability. 4. Otherwise as described. ACT 112: Positive. There are findings on this exam that require communication between the performing entity and the patient following Patient Test Result Information Act ([place] Act 112) guidelines. The above report was generated using voice recognition software. It may contain grammatical, syntax or spelling errors. Electronically signed by: Derik Whitney M.D. 06/27/2024 12:20 PM Discharge Plan Visit Data Chief Complaint: Swelling/Edema to Extremity Stated Complaint: EDEMA/BULDGING, RT GROIN, PAINFUL ED Provider: Rory Torres Discharge Problem: Incarcerated inguinal hernia, Severe right groin pain Patient Disposition: Admitted As Inpatient Condition: Fair Discharge Instructions Interventions: ED Discharge Assessment Last Done: 06/27/24 13:12
[2024-06-27] MEDS ORDERED: MoRPHine SULFATE 2 MG/ML CARP IV PRN ×2 (10:41→16:24)
[2024-06-27] MEDS: SODIUM CHLORIDE 0.9% 500 ML IV ONE (11:01)
[2024-06-27] MEDS: ONDANSETRON INJ 2 MG/ML 2 ML VIAL IV STA (11:01)
[2024-06-27] MEDS: MoRPHine SULFATE 2 MG/ML CARP IV STA (11:01)
[2024-06-27 11:21] LABS: Basophils # (auto) 0.04 K/uL (0.00-0.20); Basophils % (auto) 0.3 %; Eosinophils # (auto) 0.19 K/uL (0.00-0.50); Eosinophils % (auto) 1.6 %; Hematocrit (blood only) 47.3 % (42.0-52.0); Hemoglobin 15.9 g/dl (14.0-18.0); Immature Granulocytes # (auto) 0.04 K/uL (0.01-0.20); Immature Granulocytes % (auto) 0.3 %; Lymphocytes # (auto) 0.85 K/uL (1.20-3.40); Lymphocytes % (auto) 7.2 %; Mean Corpuscular Hemoglobin 28.4 pg (25.0-34.0); Mean Corpuscular Hgb Conc 33.6 g/dL (32.0-36.0); Mean Corpuscular Volume 84.6 fL (80.0-100.0); Mean Platelet Volume 9.1 fL (9.4-12.4); Neutrophils # (auto) 9.41 K/uL (1.40-6.50); Neutrophils % (auto) 79.6 %; Platelet Count 256 K/uL (130-400); RDW Standard Deviation 45.7 fL (36.4-46.3); Red Blood Count 5.59 M/uL (4.70-6.10); White Blood Count 11.83 K/ul (4.8-10.8)
[2024-06-27 11:39] LABS: Albumin Globulin Ratio 1.5 (0.9-2); Albumin Level 4.3 gm/dl (3.4-5.0); BUN Creatinine Ratio 20.9 (10-20); Bilirubin,Total 0.7 mg/dl (0.2-1.0); Calcium 9.3 mg/dl (8.6-10.3); Creatinine Clr Calc Pharmacy 67.3 ml/min; Globulin 2.8 gm/dl (2.5-4.0); Potassium 4.1 mmol/L (3.5-5.1); Total Protein 7.1 gm/dl (6.0-8.3)
[2024-06-27] MEDS: OPTIRAY 320 100ml IV ONE (11:47)
--- NOTE | 2024-06-27 12:21 | CT Scan Report ---
ABDOMEN AND PELVIS CT WITH IV CONTRAST CT DOSE: 1310.71 mGy.cm HISTORY: right inguinal hernia TECHNIQUE: Multiaxial CT images of the abdomen and pelvis were performed following the IV administrat ion of 90 cc of Optiray, A dose lowering technique was utilized adhering to the principles of ALARA. COMPARISON STUDY: 04/22/2024 FINDINGS: ABDOMEN: Liver, gallbladder, spleen, and adrenal glands are unremarkable. Stable pancreatic ductal di latation. Stable small cystic findings in the pancreas, largest at the posterior pancreatic body sienna ures 1.5 cm. Stable duodenal diverticulum measuring 4 cm. Kidneys show no hydronephrosis or calculi. There are scattered atherosclerotic calcifications. No abdominal aortic aneurysm. Pelvis: Prostate seeds are stable. Urinary bladder is nondistended. There is sigmoid diverticulosis. No acute diverticulitis. The sigmoid colon is redundant. There is a right inguinal hernia which conta ins a loop of sigmoid colon. There is adjacent inflammation and a small amount of fluid within the he rnia sac consistent with incarceration, interval. The hernia is increased in size measuring 5 cm axia lly and more of the sigmoid colon is within the hernia sac. No other bowel inflammation or obstructio n seen. There is moderate retained stool. Normal appendix. No free air or abscess. No enlarged adenop athy. Osseous structures: There is diffuse lumbar degenerative disc disease. IMPRESSION: 1. Right inguinal hernia containing a loop of sigmoid colon with acute incarceration. 2. No other acute findings seen. 3. Stable findings at the pancreas likely represent IPMN. Follow-up exam recommended in one year to m onitor stability. 4. Otherwise as described. ACT 112: Positive. There are findings on this exam that require communication between the performing entity and the patient following Patient Test Result Information Act ([place] Act 112) guidelines. The above report was generated using voice recognition software. It may contain grammatical, syntax o r spelling errors. Electronically signed by: Derik Whitney M.D. 06/27/2024 12:20 PM
--- NOTE | 2024-06-27 12:49 | History & Physical Report ---
Date of Service June 27, 2024 Assessment & Plan (1) Incarcerated right inguinal hernia: Plan: 78-year-old gentleman with incarcerated right inguinal hernia. We discussed the risks and benefits of emergent open right inguinal hernia repair possible mesh possible bowel resection. All his questions were answered and he is agreeable to proceed. We will take him to the operating room as soon as possible. Consent has been obtained. History of Present Illness Primary Care Provider: Sera El MD 78-year-old gentleman presents with 3 days of pain in his right inguinal hernia site. He states that he noticed a bulge that he is unable to reduce since Monday. He denies fevers or chills. He does have pain when he pushes on it. He denies nausea or vomiting. He has been passing flatus and small stools. CT scan demonstrates incarcerated right inguinal hernia containing a loop of colon. Allergies Allergy/AdvReac Type Severity Reaction Status Date / Time celecoxib [From Celebrex] Allergy Mild Rash Verified 06/17/24 12:25 lisinopril AdvReac Mild Headache, Verified 06/17/24 12:25 cough Home Medications Medication Instructions Recorded Confirmed Type blood-glucose meter (OneTouch #1 ea 01/24/19 06/17/24 Rx UltraMini kit) lancets (OneTouch UltraSoft #100 ea 01/24/19 06/17/24 Rx Lancets) omega 6-fto-hyl-fish oil 1,200 mg 1 cap PO BID 04/14/21 06/27/24 History (144 mg-216 mg) capsule (Fish Oil) psyllium husk (with sugar) 3 1 tbsp PO BID PRN Constipation 12/08/21 06/27/24 History gram/7 gram oral powder (Metamucil (with sugar)) calcium 600 mg (as 1 tab PO QAM 05/17/22 06/27/24 History carbonate)-vitamin D3 10 mcg (400 unit) tablet (Calcium with Vitamin D) cholecalciferol (vitamin D3) 50 50 mcg PO BID 10/31/22 06/27/24 History mcg (2,000 unit) capsule (Vitamin D3) albuterol sulfate 90 mcg/actuation 2 puff inhalation QID PRN 01/06/23 06/27/24 Rx aerosol inhaler shortness of breath or wheezing #6.7 grams amoxicillin 500 mg tablet 2,000 mg (4 x 500 mg) PO ONCE #4 05/24/23 06/27/24 Rx tabs blood sugar diagnostic #100 ea 07/11/23 06/17/24 Rx metformin 500 mg tablet 500 mg PO BID #180 tabs 07/17/23 06/27/24 Rx meloxicam 15 mg tablet 15 mg PO QAM #90 tabs 08/28/23 06/27/24 Rx simvastatin 10 mg tablet 10 mg PO QPM #90 tabs 09/04/23 06/27/24 Rx blood-glucose meter,continuous #1 ea 02/09/24 06/17/24 Rx (FreeStyle Stephon 3 [place]) blood-glucose sensor (FreeStyle #1 ea 02/16/24 06/17/24 Rx Stephon 3 Sensor device) lorazepam 0.5 mg tablet (Ativan) 0.5 mg PO BID PRN anxiety #60 tabs 03/18/24 06/27/24 Rx isosorbide mononitrate 30 mg 30 mg PO QPM #90 tabs 04/26/24 06/27/24 Rx tablet,extended release 24 hr losartan 50 mg tablet 50 mg PO BID #180 tabs 04/26/24 06/27/24 Rx amlodipine 10 mg tablet 10 mg PO QAM #90 tabs 05/06/24 06/27/24 Rx empagliflozin 10 mg tablet 10 mg PO DAILY #90 tabs 06/10/24 06/27/24 Rx (Jardiance) tamsulosin 0.4 mg capsule 0.4 mg PO BIDWMEAL weak stream 06/10/24 06/27/24 Rx #180 caps trazodone 50 mg tablet 50 - 100 mg (1 - 2 x 50 mg) PO HS 06/10/24 06/27/24 Rx PRN insomnia #90 tabs vibegron 75 mg tablet 75 mg PO DAILY #90 tabs 06/10/24 06/27/24 Rx hydrocortisone 2.5 % topical cream 1 applic topical BID PRN skin 06/17/24 06/27/24 Rx irritation #20 grams Past Med/Surg History Problem List (Updated 06/27/24 @ 12:50 by Omid Pineda MD) Incarcerated right inguinal hernia Osteoarthritis of right knee Constipation Rupture quadriceps tendon Wound dehiscence Internal hemorrhoids Rectal bleeding Insomnia COVID-19 (Acute) Nocturia more than twice per night Benign essential hypertension Atypical chest pain 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 Urinary frequency Syncope and collapse Non-cardiac chest pain Hospital discharge follow-up Chest pressure (Acute) Renal artery aneurysm Left buttock pain Left hip pain Left shoulder pain Osteoarthritis of left knee Androgen deprivation therapy Wrist fracture, closed Fall from horse Cerumen impaction Screening for thyroid disorder Encounter for pre-operative examination Lung nodule, multiple Elevated PSA Osteoarthritis Type 2 diabetes mellitus NIDDM 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 Vasovagal syncope Occasional, did tilt table test Pulmonary nodule Annual surveillance Reducible right inguinal hernia present Hypertension stable per pt Surgical History S/P tendon repair 04/06/23 [facility] History of brachytherapy Brachytherapy (05/26/21): Grade view 3, MAC#4, ETT 7.5 at [facility] History of total right knee replacement Right TKA (12/17/19): SAB at L3-L4, 1 attempt + PNB at [facility]. No issues per anesthesia postop progress note. History of prostate biopsy History of nasal surgery Polyps removed History of arthroscopy of right knee 01/02/2018: LMA#5 at [facility]. No issues per anesthesia postop progress note. History of cystoscopy History of colonoscopy History of laminectomy Lumbar spine History of removal of cyst sebaceous cyst (removed off neck) History of wisdom tooth extraction History of tonsillectomy and adenoidectomy Family History Brother Hypertension Heart disease History of cardiac surgery; Diabetes Mother , in her 90s Diabetes Sister Breast cancer Father , 62yo Myocardial infarction Heart disease Hypertension Son No problems noted. Other No family history of adverse response to anesthesia Denies family history of Ovarian cancer Prostate cancer Colorectal cancer Social History Smoking Status: Former smoker Tobacco Type: Cigarettes Age Started Using Tobacco: 17; Age Quit Using Tobacco: 43; packs per day: 2; Second Hand Exposure: No; Do You Dip or Chew Tobacco: No; Hx Alcohol Use: Yes Alcohol type: beer Alcohol Intake Frequency: 2-3 x/Week Hx Substance Use: No Preferred Language: Kiswahili Communication Ability: Effective Visual Impairment: No Limitations Hearing Ability: Normal Front Loader Residential Driver Required: No Beliefs That Will Affect Care: None marital status: Current Living Situation: Spouse Current Living Situation Comment: Lives with Ingrid current occupational status: retired current occupation: Pharmacist How many Children do You have: 1 Feels Safe at Home: Yes Childhood Exposure to Second-Hand Smoke: No Diet: regular caffeine: Yes during the past year weight has: remained stable Dental Care, Regularly: Yes Physical Activity Frequency: Daily Seatbelt Use: always Sunscreen Use: Yes Assistive Devices: Glasses Review of Systems Review of Systems: All systems reviewed & are unremarkable except as noted in HPI & below Physical Exam Constitutional: WD/WN, vitals as above Eyes: PERRL, conjunctivae normal, anicteric sclerae Neck: trachea midline, no thyromegaly Respiratory: normal respiratory effort; no respiratory distress and no labored breathing Cardiovascular: Rate/Rhythm: regular rate and regular rhythm Gastrointestinal (Abdomen): Inspection/Auscultation: abdomen normal to inspection; abdomen not distended Percussion/Palpation: + abdomen tender ( Right inguinal region), abdomen soft and + hernia ( incarcerated right inguinal hernia, unable to reduce); no guarding and abdomen not rigid Skin: no rashes, warm and dry Psychiatric: A+Ox3, euthymic affect Results & Data Results & Data Vital Signs (Past 12 Hours) Vital Signs Temp Pulse Pulse Resp BP BP Pulse Ox 06/27/24 11:33 63 16 93 06/27/24 11:14 66 06/27/24 11:09 68 20 128/73 91 06/27/24 11:04 63 16 128/73 92 06/27/24 10:13 36.9 C 84 16 179/91 H 94 O2 Del Method 06/27/24 11:33 06/27/24 11:14 06/27/24 11:09 06/27/24 11:04 Room Air 06/27/24 10:13 Room Air Laboratory Results 06/27/24 Range/Units 10:35 WBC 11.83 H (4.8-10.8) K/ul RBC 5.59 (4.70-6.10) M/uL Hgb 15.9 (14.0-18.0) g/dl Hct 47.3 (42.0-52.0) % MCV 84.6 (80.0-100.0) fL MCH 28.4 (25.0-34.0) pg MCHC 33.6 (32.0-36.0) g/dL RDW Std Deviation 45.7 (36.4-46.3) fL RDW Coeff of Sancho 15.0 H (11.5-14.5) % Plt Count 256 (130-400) K/uL MPV 9.1 L (9.4-12.4) fL Immature Gran % (Auto) 0.3 % Neut % (Auto) 79.6 % Lymph % (Auto) 7.2 % Menard % (Auto) 11.0 % Eos % (Auto) 1.6 % Baso % (Auto) 0.3 % Neut # (Auto) 9.41 H (1.40-6.50) K/uL Lymph # (Auto) 0.85 L (1.20-3.40) K/uL Menard # (Auto) 1.30 H (0.11-0.59) K/uL Eos # (Auto) 0.19 (0.00-0.50) K/uL Baso # (Auto) 0.04 (0.00-0.20) K/uL Immature Gran # (Auto) 0.04 (0.01-0.20) K/uL Sodium 139 (136-145) mmol/L Potassium 4.1 (3.5-5.1) mmol/L Chloride 106 (98-107) mmol/L Carbon Dioxide 26 (21-32) mmol/L Anion Gap 7 (3-11) BUN 18 (6-23) mg/dl Creatinine 0.86 (0.6-1.4) mg/dl Est Cr Clr Drug Dosing 67.3 ml/min eGFR 89.18 BUN/Creatinine Ratio 20.9 H (10-20) Glucose 137 H (70-99(Fasting)) mg/dl Calcium 9.3 (8.6-10.3) mg/dl Total Bilirubin 0.7 (0.2-1.0) mg/dl AST 16 (13-39) U/L ALT 15 (7-52) U/L Alkaline Phosphatase 44 (34-104) U/L Total Protein 7.1 (6.0-8.3) gm/dl Albumin 4.3 (3.4-5.0) gm/dl Globulin 2.8 (2.5-4.0) gm/dl Albumin/Globulin Ratio 1.5 (0.9-2) Diagnostic Findings ABDOMEN AND PELVIS CT WITH IV CONTRAST CT DOSE: 1310.71 mGy.cm HISTORY: right inguinal hernia TECHNIQUE: Multiaxial CT images of the abdomen and pelvis were performed following the IV administration of 90 cc of Optiray, A dose lowering technique was utilized adhering to the principles of ALARA. COMPARISON STUDY: 04/22/2024 FINDINGS: ABDOMEN: Liver, gallbladder, spleen, and adrenal glands are unremarkable. Stable pancreatic ductal dilatation. Stable small cystic findings in the pancreas, largest at the posterior pancreatic body measures 1.5 cm. Stable duodenal diverticulum measuring 4 cm. Kidneys show no hydronephrosis or calculi. There are scattered atherosclerotic calcifications. No abdominal aortic aneurysm. Pelvis: Prostate seeds are stable. Urinary bladder is nondistended. There is sigmoid diverticulosis. No acute diverticulitis. The sigmoid colon is redundant. There is a right inguinal hernia which contains a loop of sigmoid colon. There is adjacent inflammation and a small amount of fluid within the hernia sac consistent with incarceration, interval. The hernia is increased in size measuring 5 cm axially and more of the sigmoid colon is within the hernia sac. No other bowel inflammation or obstruction seen. There is moderate retained stool. Normal appendix. No free air or abscess. No enlarged adenopathy. Osseous structures: There is diffuse lumbar degenerative disc disease. IMPRESSION: 1. Right inguinal hernia containing a loop of sigmoid colon with acute incarceration. 2. No other acute findings seen. 3. Stable findings at the pancreas likely represent IPMN. Follow-up exam recommended in one year to monitor stability. 4. Otherwise as described. ACT 112: Positive. There are findings on this exam that require communication between the performing entity and the patient following Patient Test Result Information Act ([place] Act 112) guidelines. The above report was generated using voice recognition software. It may contain grammatical, syntax or spelling errors. Electronically signed by: Derik Whitney M.D. 06/27/2024 12:20 PM
[2024-06-27] MEDS ORDERED: DEXAMETHASONE SOD INJ 4 MG/ML VIAL ONE (13:11)
[2024-06-27] MEDS ORDERED: fentaNYL citrate PF 100 MCG/2 ML VIAL ONE (13:11)
[2024-06-27] MEDS ORDERED: ONDANSETRON INJ 2 MG/ML 2 ML VIAL ONE (13:11)
[2024-06-27] MEDS ORDERED: MIDAZOLAM HCL 1 MG/ML 2ML VIAL ONE (13:11)
[2024-06-27] MEDS ORDERED: LIDOCAINE 2% 2 ML VIAL/AMP(20MG/ML) INFIL ONE (13:11)
[2024-06-27] MEDS ORDERED: PROPOFOL IV EMULSION 10 MG/ML 20 ML VIAL IV ONE (13:11)
[2024-06-27] MEDS ORDERED: LARYING-O-JET KIT (LTA) ONE (13:14)
[2024-06-27] MEDS ORDERED: ROCURONIUM BROMIDE 10 MG/ML 5 ML VIAL IV ONE (13:14)
[2024-06-27] MEDS ORDERED: ATROPINE SULFATE 0.1 MG/ML 10ML SYR IV PRN (13:30)
[2024-06-27] MEDS ORDERED: ePHEDrine sulfate 50 MG/ML AMP IV PRN (13:30)
--- NOTE | 2024-06-27 13:33 | Anesthesiology Consultation ---
Date of Service June 27, 2024 Assessment & Plan Chart Review Chart Review: Acceptable Risk for Surgery Consults Requested none ASA [id number] Proposed Anesthesia Anesthesia Type: General History Surgery Operation Date: 06/27/24 10:10 Proposed Procedures p Right Incarcerated Inguinal Hernia Repair - Omid Pineda MD Height/Weight Height: 5 ft 7 in Weight: 75.6 kg Allergies Allergy/AdvReac Type Severity Reaction Status Date / Time celecoxib [From Celebrex] Allergy Mild Rash Verified 06/17/24 12:25 lisinopril AdvReac Mild Headache, Verified 06/17/24 12:25 cough Medications Home Medications Medication Instructions Recorded Confirmed Last Taken blood-glucose meter (OneTouch #1 ea 01/24/19 06/17/24 Unknown UltraMini kit) lancets (OneTouch UltraSoft #100 ea 01/24/19 06/17/24 Unknown Lancets) omega 1-xxe-otw-fish oil 1,200 mg 1 cap PO BID 04/14/21 06/27/24 05/23/23 (144 mg-216 mg) capsule (Fish Oil) psyllium husk (with sugar) 3 1 tbsp PO BID PRN Constipation 12/08/21 06/27/24 05/23/23 gram/7 gram oral powder (Metamucil (with sugar)) calcium 600 mg (as 1 tab PO QAM 05/17/22 06/27/24 05/23/23 carbonate)-vitamin D3 10 mcg (400 unit) tablet (Calcium with Vitamin D) cholecalciferol (vitamin D3) 50 50 mcg PO BID 10/31/22 06/27/24 05/23/23 mcg (2,000 unit) capsule (Vitamin D3) albuterol sulfate 90 mcg/actuation 2 puff inhalation QID PRN 01/06/23 06/27/24 Unknown aerosol inhaler shortness of breath or wheezing #6.7 grams amoxicillin 500 mg tablet 2,000 mg (4 x 500 mg) PO ONCE #4 05/24/23 06/27/24 Unknown tabs blood sugar diagnostic #100 ea 07/11/23 06/17/24 Unknown metformin 500 mg tablet 500 mg PO BID #180 tabs 07/17/23 06/27/24 Unknown meloxicam 15 mg tablet 15 mg PO QAM #90 tabs 08/28/23 06/27/24 Unknown simvastatin 10 mg tablet 10 mg PO QPM #90 tabs 09/04/23 06/27/24 Unknown blood-glucose meter,continuous #1 ea 02/09/24 06/17/24 Unknown (FreeStyle Stephon 3 [place]) blood-glucose sensor (FreeStyle #1 ea 02/16/24 06/17/24 Unknown Stephon 3 Sensor device) lorazepam 0.5 mg tablet (Ativan) 0.5 mg PO BID PRN anxiety #60 tabs 03/18/24 06/27/24 Unknown isosorbide mononitrate 30 mg 30 mg PO QPM #90 tabs 04/26/24 06/27/24 Unknown tablet,extended release 24 hr losartan 50 mg tablet 50 mg PO BID #180 tabs 04/26/24 06/27/24 Unknown amlodipine 10 mg tablet 10 mg PO QAM #90 tabs 05/06/24 06/27/24 Unknown empagliflozin 10 mg tablet 10 mg PO DAILY #90 tabs 06/10/24 06/27/24 Unknown (Jardiance) tamsulosin 0.4 mg capsule 0.4 mg PO BIDWMEAL weak stream 06/10/24 06/27/24 Unknown #180 caps trazodone 50 mg tablet 50 - 100 mg (1 - 2 x 50 mg) PO HS 06/10/24 06/27/24 Unknown PRN insomnia #90 tabs vibegron 75 mg tablet 75 mg PO DAILY #90 tabs 06/10/24 06/27/24 Unknown hydrocortisone 2.5 % topical cream 1 applic topical BID PRN skin 06/17/24 06/27/24 Unknown irritation #20 grams NPO Date Last Intake of Fluids: 06/27/24 Time Last Intake of Fluids: 06:00 Date Last Intake of Solids: 06/26/24 Time Last Intake of Solids: 18:30 Last Intake of Solids Comment: Greater then 8 hrs Past Medical History Medical History History of COVID-19 01/22/23, [facility] test, not hosp; SOB and cough>no residual symptoms History of anxiety only while going thru prostate cancer tx. Vasovagal syncope Occasional, did tilt table test Pulmonary nodule Annual surveillance Reducible right inguinal hernia present Hypertension stable per pt Exercise / Class Metabolic Activity II 4-5 Yardwork/Stairs/Walk up hill Past Family History Family History Brother Hypertension Heart disease History of cardiac surgery; Diabetes Mother , in her 90s Diabetes Sister Breast cancer Father , 62yo Myocardial infarction Heart disease Hypertension Son No problems noted. Other No family history of adverse response to anesthesia Denies family history of Ovarian cancer Prostate cancer Colorectal cancer Past Surgical History Surgical History S/P tendon repair 04/06/23 [facility] History of brachytherapy Brachytherapy (05/26/21): Grade view 3, MAC#4, ETT 7.5 at [facility] History of total right knee replacement Right TKA (12/17/19): SAB at L3-L4, 1 attempt + PNB at [facility]. No issues per anesthesia postop progress note. History of prostate biopsy History of nasal surgery Polyps removed History of arthroscopy of right knee 01/02/2018: LMA#5 at [facility]. No issues per anesthesia postop progress note. History of cystoscopy History of colonoscopy History of laminectomy Lumbar spine History of removal of cyst sebaceous cyst (removed off neck) History of wisdom tooth extraction History of tonsillectomy and adenoidectomy Past Anesthesia History No Hx of Anesthesia Complications and No Family Hx of Anesthesia Complications History of PONV No Hx of PONV and No Hx of Motion Sickness Social History Smoking Status: Former smoker tobacco type: cigarettes Do You Dip or Chew Tobacco: No Hx Alcohol Use: Yes Alcohol type: beer alcohol intake frequency: holidays/special occasions only Hx Substance Use: No substance use type: does not use Review of Systems ROS Unobtainable: All systems reviewed & are unremarkable except as noted in HPI & below Physical Exam Vital Signs Last Vital Signs Temp 36.7 C 06/27/24 13:20 Pulse 70 06/27/24 13:20 Resp 18 06/27/24 13:20 BP 136/76 06/27/24 13:20 Pulse Ox 97 06/27/24 13:20 O2 Del Method Room Air 06/27/24 13:20 Constitutional no acute distress ENMT Mouth: + edentulous Thyromental Distance: > or= 3.5 Finger Breadths Mallampati Class: II Neck normal visual inspection Respiratory normal respiratory effort Auscultation: lungs clear to auscultation bilaterally Cardiovascular Rate/Rhythm: regular rate and regular rhythm Neurologic moves all extremities Psychiatric Orientation: oriented x 3 Testing Laboratory Results 06/27/24 10:35 06/27/24 10:35
[2024-06-27] MEDS: ceFAZolin 2000MG 2,000 MG/15 ML SYR IV ONE (13:37)
[2024-06-27] MEDS ORDERED: SODIUM CHLORIDE 0.9% PF INJ 10 ML VIAL ONE (13:51)
[2024-06-27] MEDS ORDERED: ePHEDrine sulfate 50 MG/ML AMP ONE (13:51)
[2024-06-27] MEDS ORDERED: SUGAMMADEX SODIUM 200 MG/2 ML VIAL IV ONE (14:03)
[2024-06-27] MEDS: BUPIVACAINE/EPINEPHRINE 0.25% 1:200,000 30 ML VIAL ONE (14:43)
[2024-06-27] MEDS: FLOSEAL HEMOSTATIC MATRIX 10ML TOP ONE (14:44)
[2024-06-27] MEDS: ceFAZolin 2,000 MG/15 ML IV PUSH IV ONE (14:44)
--- NOTE | 2024-06-27 14:56 | Post Operative Brief Note ---
Immediate Post Op Note Date of Surgery June 27, 2024 Pre & Post Diagnosis Operation Date: 06/27/24 10:10 Pre-Op Diagnosis: Incarcerated right inguinal hernia Post-Op Diagnosis: Incarcerated right inguinal hernia I identified the patient and participated in the time-out.: Yes Procedure Operation Date: 06/27/24 10:10 Actual Procedures p Right Incarcerated Inguinal Hernia Repair with Mesh(Right) - Omid Pineda MD Surgeon Omid Pineda MD Machine Preservative Filler IMTIAZ Bhardwaj assisted with tissue retraction, camera op, closure Estimated Blood Loss 5 Findings Consistent with Post-Op Diagnosis incarcerated right inguinal hernia containing loop of colon, viable
--- NOTE | 2024-06-27 15:00 | Operative Report ---
Post Operative Report Pre & Post Diagnosis Operation Date: 06/27/24 10:10 Pre-Op Diagnosis: Incarcerated right inguinal hernia Post-Op Diagnosis: Incarcerated right inguinal hernia I identified the patient and participated in the time-out.: Yes Procedure Operation Date: 06/27/24 10:10 Actual Procedures p Right Incarcerated Inguinal Hernia Repair with Mesh(Right) - Omid Pineda MD Surgeon Omid Pineda MD Concreter IMTIAZ Bhardwaj assisted with tissue retraction, camera op, closure Estimated Blood Loss 5 Findings Consistent with Post-Op Diagnosis incarcerated right inguinal hernia containing a loop of sigmoid colon. The sigmoid colon was not threatened or ischemic Specimens hernia sac and contents Drains none Anesthesia Type General Complications none Description of Procedure patient taken to the operating room, placed supine on the operating table. A timeout was performed, perioperative antibiotics were administered, SCD boots were placed. After adequate anesthesia and analgesia was obtained, the area was prepped and draped in the normal sterile fashion. An ilioinguinal nerve block was effected on the Right side. An oblique incision was made in the right inguinal region carried down to the level of the external oblique fascia. The external oblique fascia was opened through the external ring, and the cord structures were encircled at the pubic tubercle with a [place] drain. Dissection began in the cord structures. there was a large indirect defect/hernia sac containing a loop of sigmoid colon. Dissecting carefully around this with the electrocautery and cold scissor dissection, able to release the hernia sac and reduce the colon back into the abdominal cavity. The hernia sac was then dissected free circumferentially back to its exit from the internal ring. It was opened and explored. A significant amount of inflammatory fluid was suctioned. A loop of colon was grasped and retracted back through the hernia it was inspected. It was completely viable without evidence of any sort of ischemia. The hernia sac was then ligated at its exit from the internal ring. Excess sac was removed and sent off the field for specimen. A plug and patch were brought onto the field. The plug was sewn into the Internal ring with 2-0 Prolene. A patch was then brought onto the field a keyhole incision was cut, and the patch was secured medially to the pubic tube rcle, inferiorly to the shelving edge of the inguinal ligament, superolaterally to the transversalis and internal oblique fascia. The internal ring was reapproximated with 2-0 Prolene suture. Attention was turned to hemostasis, which was excellent. The wound was copiously irrigated and suctioned free, again hemostasis was checked and was excellent. The external bleak fascia was closed with 2-0 Vicryl. The subcutaneous tissue was closed with 3-0 Vicryl. Skin was closed with running 4- 0 Monocryl subcuticular stitch. Dermabond was applied. He tolerated the procedure without complication, was transferred in stable condition to the PACU. All instrument, needle, and sponge counts were correct at the end of the case. my talent assistant was necessary throughout the procedure for tissue retraction, possible camera operation, and closure of the wounds. I understand that section 1842(b)(7)(D) of the Social Security act generally prohibits Medicare physician fee schedule payment for the services of assistants at surgery in teaching hospitals when qualified residents are available to furnish such services. I certify that the services for which payment is claimed were medically necessary and that no qualified resident was available to perform the services. I further understand that these services are subject to postpayment review by the Medicare carrier. I attest to the content of the Intraoperative Record and any orders documented therein. Any exceptions are noted below.
[2024-06-27] MEDS: fentaNYL citrate PF 100 MCG/2 ML VIAL IV PRN (15:19)
[2024-06-27] MEDS: ONDANSETRON INJ 2 MG/ML 2 ML VIAL IV PRN (15:23)
[2024-06-27] MEDS: HYDROmorphone INJ 1 MG/ML SYRINGE IV PRN (15:39)
[2024-06-27] MEDS ORDERED: ONDANSETRON INJ 2 MG/ML 2 ML VIAL IV PRN (16:24)
[2024-06-27] MEDS ORDERED: PROMETHAZINE 12.5 MG/50.5 ML BAG IV PRN (16:24)
[2024-06-27] MEDS ORDERED: diphenhydrAMINE Capsule 25 MG CAP PO PRN (16:24)
[2024-06-27] MEDS ORDERED: CARBOHYDRATES FOR HYPOGLYCEMIA PO PRN (16:55)
[2024-06-27] MEDS ORDERED: GLUCAGON FOR INJ 1 MG VIAL SQ PRN (16:55)
[2024-06-27] MEDS ORDERED: DEXTROSE 50% 50 ML SYRINGE IV PRN (16:55)
[2024-06-27] MEDS ORDERED: GLUCOSE 40% GEL 15 GM TUBE PO PRN (16:55)
[2024-06-27] MEDS ORDERED: GLUCOSE 10 TAB/TUBE PO PRN (16:55)
[2024-06-27] MEDS ORDERED: PHARMACY GLYCEMIC MGMT CONSULT PRN (16:55)
[2024-06-27] MEDS ORDERED: ENOXAPARIN INJ 40 MG/0.4 ML SYR SQ SCH (17:00)
--- NOTE | 2024-06-27 17:03 | Hospitalist Consultation ---
Date of Consultation June 27, 2024 Assessment & Plan (1) Benign essential hypertension: Current blood pressure on the high side therefore we will continue his usual medications postoperatively with losartan 50 mg p.o. BID, isosorbide mononitrate 30 mg HS and amlodipine 10 mg p.o. daily (2) Type 2 diabetes mellitus: Hemoglobin A1c 7.3, will repeat with a.m. labs Hold metformin and Jardiance NovoLog: --Goal BSG Range: Low 110 mg/dL, High 140 mg/dL --Correction Factor: 45 mg/dL/unit -- No carb coverage --BSGs ACHS if eating, q6h if npo And basal dosing if needing frequently Consult pharmacy for ongoing glycemic control (3) Prostate cancer: Continue his usual tamsulosin 0.4 mg p.o. BID and monitor for urine retention (4) Incarcerated inguinal hernia: Pain/VTE/bowel management per primary surgical team Discussed with Dr. Zion sierramed to [facility] for a.m. Plan Thank for the consult we will continue to follow along with you. History of Present Illness Reason for Consultation: medical management Attending Physician: Omid Pineda MD History of Present Illness Gavin Gonzalez is a 78 year old POD#0 incarcerated right inguinal hernia repair. He reports doing well postoperatively. Requests acetaminophen PRN for headache but otherwise no acute concerns or questions at this time. No prior history of stroke or heart attack. Allergies Allergy/AdvReac Type Severity Reaction Status Date / Time celecoxib [From Celebrex] Allergy Mild Rash Verified 06/17/24 12:25 lisinopril AdvReac Mild Headache, Verified 06/17/24 12:25 cough Home Medications Medication Instructions Recorded Confirmed Type blood-glucose meter (OneTouch #1 ea 01/24/19 06/17/24 Rx UltraMini kit) lancets (OneTouch UltraSoft #100 ea 01/24/19 06/17/24 Rx Lancets) omega 9-tpd-ypw-fish oil 1,200 mg 1 cap PO BID 04/14/21 06/27/24 History (144 mg-216 mg) capsule (Fish Oil) psyllium husk (with sugar) 3 1 tbsp PO BID PRN Constipation 12/08/21 06/27/24 History gram/7 gram oral powder (Metamucil (with sugar)) calcium 600 mg (as 1 tab PO QAM 05/17/22 06/27/24 History carbonate)-vitamin D3 10 mcg (400 unit) tablet (Calcium with Vitamin D) cholecalciferol (vitamin D3) 50 50 mcg PO BID 10/31/22 06/27/24 History mcg (2,000 unit) capsule (Vitamin D3) albuterol sulfate 90 mcg/actuation 2 puff inhalation QID PRN 01/06/23 06/27/24 Rx aerosol inhaler shortness of breath or wheezing #6.7 grams amoxicillin 500 mg tablet 2,000 mg (4 x 500 mg) PO ONCE #4 05/24/23 06/27/24 Rx tabs blood sugar diagnostic #100 ea 07/11/23 06/17/24 Rx metformin 500 mg tablet 500 mg PO BID #180 tabs 07/17/23 06/27/24 Rx meloxicam 15 mg tablet 15 mg PO QAM #90 tabs 08/28/23 06/27/24 Rx simvastatin 10 mg tablet 10 mg PO QPM #90 tabs 09/04/23 06/27/24 Rx blood-glucose meter,continuous #1 ea 02/09/24 06/17/24 Rx (FreeStyle Stephon 3 [place]) blood-glucose sensor (FreeStyle #1 ea 02/16/24 06/17/24 Rx Stephon 3 Sensor device) lorazepam 0.5 mg tablet (Ativan) 0.5 mg PO BID PRN anxiety #60 tabs 03/18/24 06/27/24 Rx isosorbide mononitrate 30 mg 30 mg PO QPM #90 tabs 04/26/24 06/27/24 Rx tablet,extended release 24 hr losartan 50 mg tablet 50 mg PO BID #180 tabs 04/26/24 06/27/24 Rx amlodipine 10 mg tablet 10 mg PO QAM #90 tabs 05/06/24 06/27/24 Rx empagliflozin 10 mg tablet 10 mg PO DAILY #90 tabs 06/10/24 06/27/24 Rx (Jardiance) tamsulosin 0.4 mg capsule 0.4 mg PO BIDWMEAL weak stream 06/10/24 06/27/24 Rx #180 caps trazodone 50 mg tablet 50 - 100 mg (1 - 2 x 50 mg) PO HS 06/10/24 06/27/24 Rx PRN insomnia #90 tabs vibegron 75 mg tablet 75 mg PO DAILY #90 tabs 06/10/24 06/27/24 Rx hydrocortisone 2.5 % topical cream 1 applic topical BID PRN skin 06/17/24 06/27/24 Rx irritation #20 grams Patient History Medical History History of COVID-19 01/22/23, [facility] test, not hosp; SOB and cough>no residual symptoms History of anxiety only while going thru prostate cancer tx. Vasovagal syncope Occasional, did tilt table test Pulmonary nodule Annual surveillance Reducible right inguinal hernia present Hypertension stable per pt Surgical History S/P tendon repair 04/06/23 [facility] History of brachytherapy Brachytherapy (05/26/21): Grade view 3, MAC#4, ETT 7.5 at [facility] History of total right knee replacement Right TKA (12/17/19): SAB at [facility], 1 attempt + PNB at [facility]. No issues per anesthesia postop progress note. History of prostate biopsy History of nasal surgery Polyps removed History of arthroscopy of right knee 01/02/2018: LMA#5 at [facility]. No issues per anesthesia postop progress note. History of cystoscopy History of colonoscopy History of laminectomy Lumbar spine History of removal of cyst sebaceous cyst (removed off neck) History of wisdom tooth extraction History of tonsillectomy and adenoidectomy Family History Brother Hypertension Heart disease History of cardiac surgery; Diabetes Mother , in her 90s Diabetes Sister Breast cancer Father , 62yo Myocardial infarction Heart disease Hypertension Son No problems noted. Other No family history of adverse response to anesthesia Denies family history of Ovarian cancer Prostate cancer Colorectal cancer Social History Smoking Status: Former smoker Tobacco Type: Cigarettes Age Started Using Tobacco: 17; Age Quit Using Tobacco: 43; packs per day: 2; Second Hand Exposure: No; Do You Dip or Chew Tobacco: No; Hx Alcohol Use: No Hx Substance Use: No Preferred Language: Portuguese Communication Ability: Effective Visual Impairment: No Limitations Hearing Ability: Normal Radiation Engineer Required: No Beliefs That Will Affect Care: None marital status: Current Living Situation: Spouse Current Living Situation Comment: Lives with Ingrid current occupational status: retired current occupation: Pharmacist How many Children do You have: 1 Feels Safe at Home: Yes Childhood Exposure to Second-Hand Smoke: No Diet: regular caffeine: Yes during the past year weight has: remained stable Dental Care, Regularly: Yes Physical Activity Frequency: Daily Seatbelt Use: always Sunscreen Use: Yes Assistive Devices: Glasses Review of Systems Review of Systems: All systems reviewed & are unremarkable except as noted in HPI & below Physical Exam Constitutional: WD/WN, vitals as above Respiratory: normal respiratory effort, lungs clear to auscultation Cardiovascular: RRR, no murmur, no edema Gastrointestinal (Abdomen): normal bowel sounds, soft, nontender, no hepatosplenomegaly Right groin surgical dressing appears clean dry and intact Results & Data Results & Data Vital Signs (Past 12 Hours) Vital Signs Temp Pulse Pulse Pulse Resp BP BP 06/27/24 16:05 66 15 130/68 06/27/24 15:50 36.7 C 67 12 131/60 06/27/24 15:40 74 18 123/66 06/27/24 15:30 71 14 124/70 06/27/24 15:20 72 11 L 137/73 06/27/24 15:11 36.4 C L 73 17 140/74 06/27/24 13:20 36.7 C 70 18 136/76 06/27/24 13:12 78 18 129/78 06/27/24 11:33 63 16 06/27/24 11:14 66 06/27/24 11:09 68 20 128/73 06/27/24 11:04 63 16 128/73 06/27/24 10:13 36.9 C 84 16 179/91 H Pulse Ox O2 Del Method O2 Flow Rate 06/27/24 16:05 97 Nasal Cannula 2 06/27/24 15:50 96 Nasal Cannula 2 06/27/24 15:40 94 Nasal Cannula 2 06/27/24 15:30 98 Oxymask 4 06/27/24 15:20 99 Oxymask 6 06/27/24 15:11 95 Oxymask 6 06/27/24 13:20 97 Room Air 06/27/24 13:12 99 Room Air 06/27/24 11:33 93 06/27/24 11:14 06/27/24 11:09 91 06/27/24 11:04 92 Room Air 06/27/24 10:13 94 Room Air Laboratory Results Abnormal lab results 06/27/24 06/27/24 06/27/24 Range/Units 10:35 15:13 17:11 WBC 11.83 H (4.8-10.8) K/ul RDW Coeff of Sancho 15.0 H (11.5-14.5) % MPV 9.1 L (9.4-12.4) fL Neut # (Auto) 9.41 H (1.40-6.50) K/uL Lymph # (Auto) 0.85 L (1.20-3.40) K/uL [place] # (Auto) 1.30 H (0.11-0.59) K/uL BUN/Creatinine Ratio 20.9 H (10-20) Glucose 137 H (70-99(Fasting)) mg/dl POC Glucose 126 H 143 H (70-99) mg/dl 06/27/24 Range/Units 20:26 WBC (4.8-10.8) K/ul RDW Coeff of Sancho (11.5-14.5) % MPV (9.4-12.4) fL Neut # (Auto) (1.40-6.50) K/uL Lymph # (Auto) (1.20-3.40) K/uL [place] # (Auto) (0.11-0.59) K/uL BUN/Creatinine Ratio (10-20) Glucose (70-99(Fasting)) mg/dl POC Glucose 157 H (70-99) mg/dl Diagnostic Findings ABDOMEN AND PELVIS CT WITH IV CONTRAST CT DOSE: 1310.71 mGy.cm HISTORY: right inguinal hernia TECHNIQUE: Multiaxial CT images of the abdomen and pelvis were performed following the IV administration of 90 cc of Optiray, A dose lowering technique was utilized adhering to the principles of ALARA. COMPARISON STUDY: 04/22/2024 FINDINGS: ABDOMEN: Liver, gallbladder, spleen, and adrenal glands are unremarkable. Stable pancreatic ductal dilatation. Stable small cystic findings in the pancreas, largest at the posterior pancreatic body measures 1.5 cm. Stable duodenal diverticulum measuring 4 cm. Kidneys show no hydronephrosis or calculi. There are scattered atherosclerotic calcifications. No abdominal aortic aneurysm. Pelvis: Prostate seeds are stable. Urinary bladder is nondistended. There is sigmoid diverticulosis. No acute diverticulitis. The sigmoid colon is redundant. There is a right inguinal hernia which contains a loop of sigmoid colon. There is adjacent inflammation and a small amount of fluid within the hernia sac consistent with incarceration, interval. The hernia is increased in size measuring 5 cm axially and more of the sigmoid colon is within the hernia sac. No other bowel inflammation or obstruction seen. There is moderate retained stool. Normal appendix. No free air or abscess. No enlarged adenopathy. Osseous structures: There is diffuse lumbar degenerative disc disease. IMPRESSION: 1. Right inguinal hernia containing a loop of sigmoid colon with acute incarceration. 2. No other acute findings seen. 3. Stable findings at the pancreas likely represent IPMN. Follow-up exam recommended in one year to monitor stability. 4. Otherwise as described. Medications Administered ER medications given: Morphine 2 mg IV Ondansetron 4 mg IV Normal saline 500 mL bolus PG Care Time/CCT Total # of Minutes Spent Total Time Spent with Patient: Total time spent is greater than 50% in coordination of care (as documented) at patient's floor/unit and/or counseling patient: Coding Level of Care Code 74225 IN/OBS CONSULT LVL 4,60M Diagnoses Benign essential hypertension I10 Type 2 diabetes mellitus E11.9 Prostate cancer C61 Incarcerated inguinal hernia K40.30
[2024-06-27] MEDS: INSULIN ASPART PER UNIT CHARGE SC SCH (18:08)
[2024-06-27] MEDS: LANTUS PER UNIT CHARGE SC STA (18:08)
--- NOTE | 2024-06-27 18:56 | Anesthesiology Progress Note ---
Date of Service June 27, 2024 Anesthesia Post Procedure Vital Signs Vital Signs: Temp Pulse Pulse Pulse Resp BP BP 06/27/24 18:30 36.5 C 84 16 158/82 H 06/27/24 17:38 76 18 139/87 06/27/24 16:30 36.6 C 78 16 123/71 06/27/24 16:05 66 15 130/68 06/27/24 15:50 36.7 C 67 12 131/60 06/27/24 15:40 74 18 123/66 06/27/24 15:30 71 14 124/70 06/27/24 15:20 72 11 L 137/73 06/27/24 15:11 36.4 C L 73 17 140/74 06/27/24 13:20 36.7 C 70 18 136/76 06/27/24 13:12 78 18 129/78 06/27/24 11:33 63 16 06/27/24 11:14 66 06/27/24 11:09 68 20 128/73 06/27/24 11:04 63 16 128/73 06/27/24 10:13 36.9 C 84 16 179/91 H Pulse Ox O2 Del Method O2 Flow Rate 06/27/24 18:30 94 Nasal Cannula 2.0 06/27/24 17:38 94 Nasal Cannula 2.0 06/27/24 16:30 96 Nasal Cannula 2 06/27/24 16:05 97 Nasal Cannula 2 06/27/24 15:50 96 Nasal Cannula 2 06/27/24 15:40 94 Nasal Cannula 2 06/27/24 15:30 98 Oxymask 4 06/27/24 15:20 99 Oxymask 6 06/27/24 15:11 95 Oxymask 6 06/27/24 13:20 97 Room Air 06/27/24 13:12 99 Room Air 06/27/24 11:33 93 06/27/24 11:14 06/27/24 11:09 91 06/27/24 11:04 92 Room Air 06/27/24 10:13 94 Room Air Pain Intensity Right Groin: Pain Intensity: 4 Transfer of Care Handoff Completed per policy Notes Mental Status: alert / awake / arousable Patient Amnestic to Procedure: Yes Nausea / Vomiting: adequately controlled Pain: adequately controlled Airway Patency, RR, SpO2: stable & adequate BP & HR: stable & adequate Hydration State: stable & adequate Anesthetic Complications: no major complications apparent and Pt Satisfied with anesthetic care
[2024-06-27] MEDS: LOSARTAN POTASSIUM 50 MG TAB PO SCH (19:54)
[2024-06-27] MEDS: SIMVASTATIN 10 MG TAB PO SCH (19:54)
[2024-06-27] MEDS: VIBEGRON 75 MG TAB PO SCH (19:55)
[2024-06-27] MEDS: TAMSULOSIN HCL 0.4 MG CAP PO SCH (19:55)
[2024-06-27] MEDS ORDERED: traZODone HCL 50 MG TAB PO PRN (20:45)
[2024-06-27] MEDS ORDERED: ACETAMINOPHEN 325 MG TAB PO PRN (20:48)
[2024-06-27] MEDS: oxyCODONE/ACETAMINOPHEN 5mg/325mg TAB PO PRN (21:32)
[2024-06-27] MEDS: DOCUSATE SODIUM 100 MG CAP PO SCH (21:32)
[2024-06-27] MEDS: ISOSORBIDE MONO EXTENDED REL 30 MG TABCR PO SCH (21:32)
[2024-06-28] MEDS: INSULIN ASPART PER UNIT CHARGE SC ONE (02:18)
[2024-06-28 02:25] VITALS: TEMP 97.9
[2024-06-28 07:49] VITALS: BP 115/71; PULSE 64; RESP 17; O2SAT 93
--- NOTE | 2024-06-28 08:05 | Hospitalist Progress Note ---
Date of Service June 28, 2024 Assessment & Plan (1) Incarcerated inguinal hernia: Plan: POD#1 s/p Right Incarcerated Inguinal Hernia Repair with Mesh(Right) - Omid Pineda MD on 06/27 for incarcerated R inguinal hernia containing loop of sigmoid colon. Sigmoid colon not threatened or ishcemia. Hernia sac and contents sent for path Post-op management per primary service, Lovenox SQ started this morning Pain control: patient prefers tramadol, primary plans to send over percocet as doesn't like percocet (2) Benign essential hypertension: Plan: Post-op pressure on the high side therefore was continued on his usual medications postoperatively with losartan 50 mg p.o. BID, isosorbide mononitrate 30 mg HS and amlodipine 10 mg p.o. daily BP 115/71 this morning (3) Type 2 diabetes mellitus: Plan: Hemoglobin A1c 7.3, will repeat with a.m. labs --> stable 7.1 Pharmacy on consult for glycemic management, BSGs acceptable. Can resume home metformin/jardiance at [place] (4) Prostate cancer: Plan: Continue his usual tamsulosin 0.4 mg p.o. BID Having unmeasured voids, UOP not accurate but monitor for urine retention No retention reported, voiding spontantously, takes colace/metamucil at baseline since his radiation and can continue bowel regimen at [place], ambulation encouraged Notable on CTAP on admission Stable findings at the pancreas likely represent IPMN. Follow-up exam recommended in one year to monitor stability. F/u PCP and rec repeat exam in 1 year Plan Thank you for allowing hospitalist service participate in the care of Mr Gonzalez. Hospitalist service will sign off at this time. Please call with any questions/concerns. Should have f/u PCP about pancreas findings/possible IPMN in 1 year Admission and Anticipated Discharge Date Admission Date: June 27, 2024 Supervising Physician Co-Signing Physician Notes The patient was not seen by me. The chart was reviewed. Case discussed with SARITA Sharma. Agree with assessment and plan Subjective Eval this morning, sitting up in bed, dressed, at bedside, ready for dc. Pain not great at moment/wanted something and let the department assistant know to inform nurse. He had been up/ambulating quite a bit this morning. Better results in past w/ tramadol and will order x 1 now, message surgery to send on that over percocet given doesn't like how it makes him feel and worsens constipation. Incision looks good, +BS, slight distension but non tender. Reports takes colace and metamucil daily at baseline since his radiation for prostate ca. Encouraged continued bowel regimen on pain control, will plan for dc today per primary service and patient reports was told by Dr Pineda his department assistant would be up later to work on getting him out of here today. No fever/chills, no CP/SOB. No nausea/vomiting. Questions/concerns addressed at this time. Physical Exam 2 Physical Exam: General: 78yo male sitting up in bed, dressed, at bedside, ready to discharge but having some discomfort/requesting pain medication HEENT: head atraumatic, normocephalic, mmm Resp: even/unlabored, no overt wheezing/rales, on room air CV: RRR, no significant m/r/g, no pitting edema GI: +BS, slight distension but no overt tenderness/guarding or rigidity Groin incision looks good, dressing c/d/i, surgical glue in place, no surrounding cellulitis or drainage MSK/Neuro: nonfocal, not confused, moves all extremities Psych: AOx3, cooperative with exam Results & Data Results & Data Vital Signs (Past 12 Hours) Vital Signs Temp Pulse Resp BP Pulse Ox O2 Del Method 06/28/24 07:48 36.6 C 64 17 115/71 93 Room Air 06/28/24 02: 36.6 C 71 16 162/74 H 95 Room Air 06/27/24 23:31 36.7 C 70 16 115/70 96 Room Air Laboratory Results 06/28/24 08:41 06/28/24 08:41 A1c 7.1 Mag 1.8 Diagnostic Findings Abdomen/Pelvis CT 06/27/24 10:[address] WITH IV CONTRAST CT DOSE: 1310.71 mGy.cm HISTORY: right inguinal hernia TECHNIQUE: Multiaxial CT images of the abdomen and pelvis were performed following the IV administration of 90 cc of Optiray, A dose lowering technique was utilized adhering to the principles of ALARA. COMPARISON STUDY: 04/22/2024 FINDINGS: ABDOMEN: Liver, gallbladder, spleen, and adrenal glands are unremarkable. Stable pancreatic ductal dilatation. Stable small cystic findings in the pancreas, largest at the posterior pancreatic body measures 1.5 cm. Stable duodenal diverticulum measuring 4 cm. Kidneys show no hydronephrosis or calculi. There are scattered atherosclerotic calcifications. No abdominal aortic aneurysm. Pelvis: Prostate seeds are stable. Urinary bladder is nondistended. There is sigmoid diverticulosis. No acute diverticulitis. The sigmoid colon is redundant. There is a right inguinal hernia which contains a loop of sigmoid colon. There is adjacent inflammation and a small amount of fluid within the hernia sac consistent with incarceration, interval. The hernia is increased in size measuring 5 cm axially and more of the sigmoid colon is within the hernia sac. No other bowel inflammation or obstruction seen. There is moderate retained stool. Normal appendix. No free air or abscess. No enlarged adenopathy. Osseous structures: There is diffuse lumbar degenerative disc disease. IMPRESSION: 1. Right inguinal hernia containing a loop of sigmoid colon with acute incarceration. 2. No other acute findings seen. 3. Stable findings at the pancreas likely represent IPMN. Follow-up exam recommended in one year to monitor stability. 4. Otherwise as described. ACT 112: Positive. There are findings on this exam that require communication between the performing entity and the patient following Patient Test Result Information Act ([place] Act 112) guidelines. The above report was generated using voice recognition software. It may contain grammatical, syntax or spelling errors. Electronically signed by: Derik Whitney M.D. 06/27/2024 12:20 PM PG Care Time/CCT Total # of Minutes Spent Total Time Spent with Patient: Total time spent is greater than 50% in coordination of care (as documented) at patient's floor/unit and/or counseling patient: Coding Level of Care Code 70418 SUB INP/OBS CARE 2/35MIN Diagnoses Incarcerated inguinal hernia K40.30 Benign essential hypertension I10 Type 2 diabetes mellitus E11.9 Prostate cancer C61
--- NOTE | 2024-06-28 08:41 | Surgery Progress Note ---
Date of Service June 28, 2024 Assessment & Plan (1) Incarcerated inguinal hernia: Plan: doing well. advance diet as tolerated. ambulate. d/c to home later today after lunch. f/u 2 weeks in office. reviewed restrictions. Admission and Anticipated Discharge Date Admission Date: June 27, 2024 Subjective POD #1 s/p open right inguinal hernia repair for incarcerated hernia doing well no n/v no fevers ambulating well Physical Exam Physical Exam: NAD A&Ox3 AFVSS Abd soft, minimal tenderness non distended incision C/D/I with dermabond Results & Data Vital Signs (Past 12 Hours) Vital Signs Temp Pulse Resp BP Pulse Ox O2 Del Method 06/28/24 07:48 36.6 C 64 17 115/71 93 Room Air 06/28/24 02:25 36.6 C 71 16 162/74 H 95 Room Air 06/27/24 23:31 36.7 C 70 16 115/70 96 Room Air
[2024-06-28] MEDS: amLODIPine BESYLATE 5 MG TAB PO SCH (08:48)
[2024-06-28] MEDS: ENOXAPARIN INJ 40 MG/0.4 ML SYR SQ SCH (08:49)
[2024-06-28 09:18] LABS: Basophils # (auto) 0.02 K/uL (0.00-0.20); Basophils % (auto) 0.2 %; Eosinophils # (auto) 0.03 K/uL (0.00-0.50); Eosinophils % (auto) 0.2 %; Hematocrit (blood only) 44.7 % (42.0-52.0); Hemoglobin 15.4 g/dl (14.0-18.0); Immature Granulocytes # (auto) 0.04 K/uL (0.01-0.20); Immature Granulocytes % (auto) 0.3 %; Lymphocytes % (auto) 7.1 %; Mean Corpuscular Hgb Conc 34.5 g/dL (32.0-36.0); Mean Corpuscular Volume 84.2 fL (80.0-100.0); Mean Platelet Volume 9.3 fL (9.4-12.4); Monocytes # (auto) 1.16 K/uL (0.11-0.59); Monocytes % (auto) 9.2 %; Neutrophils # (auto) 10.44 K/uL (1.40-6.50); Platelet Count 280 K/uL (130-400); RDW Coefficient of Variation 14.8 % (11.5-14.5); RDW Standard Deviation 45.5 fL (36.4-46.3); Red Blood Count 5.31 M/uL (4.70-6.10); White Blood Count 12.59 K/ul (4.8-10.8)
[2024-06-28 09:33] LABS: Estimated Average Glucose 157 mg/dl; Hemoglobin A1C 7.1 % (4.5-5.6)
[2024-06-28 09:55] LABS: Creatinine Clr Calc Pharmacy 70.5 ml/min; Potassium 4.2 mmol/L (3.5-5.1)
--- NOTE | 2024-06-28 11:21 | Discharge Summary ---
Date of Service June 28, 2024 Admission HPI Per Admitting Provider 78-year-old gentleman presents with 3 days of pain in his right inguinal hernia site. He states that he noticed a bulge that he is unable to reduce since Monday. He denies fevers or chills. He does have pain when he pushes on it. He denies nausea or vomiting. He has been passing flatus and small stools. CT scan demonstrates incarcerated right inguinal hernia containing a loop of colon. Principal Diagnosis Incarcerated right inguinal hernia containing sigmoid colon Discharge Data Allergies Allergy/AdvReac Type Severity Reaction Status Date / Time celecoxib [From Celebrex] Allergy Mild Rash Verified 06/17/24 12:25 lisinopril AdvReac Mild Headache, Verified 06/17/24 12:25 cough Consultations 06/27/24 10:34 Consult General Surgery Stat 06/27/24 16:24 Consult Hospitalist Routine Procedures Performed Operation Date: 06/27/24 10:10 Actual Procedures p Right Incarcerated Inguinal Hernia Repair with Mesh(Right) - Omid Pineda MD Ordered Studies 06/27/24 10:41 CT Abd and Pelvis [CT abd pelvis IV con only] Stat Hospital Course (1) Incarcerated inguinal hernia: Patient was taken to operating room from ER for open right inguinal hernia repair . Patient found to have sigmoid colon in right inguinal hernia however no bowel ischemia and bowel was easily reduced once patient was given more muscle relaxers intraoperatively. Patient tolerated procedure without difficulty and transferred to recovery then to medical/surgical floor for postop care. Hospitalist consulted for comanagement based on comorbidities. He tolerated advanced diet , pain was controlled, and ambulated hallways. Patient was discharged home on POD # 1 in stable condition. Total Time Total Time Spent Total Time Spent (In Minutes): 20 Total Time Includes: Examination of the Patient, Discharge Planning, Medication Reconciliation and Communication With Other Providers Discharge Plan Discharge Items Patient Disposition: Home - Self-Care Reason For Visit: POSTOP INGUINAL HERNIA INCARCERATED Discharge Diagnosis: Incarcerated right inguinal hernia Condition on Discharge: Good Activity: Per Instructions section Non-emergency contact: Primary Care Provider and Surgeon Call non-emergency contact if: you have any medication questions, your pain is not controlled, your pain is worsening, you have a fever, your temperature is above 101, your wound has increased redness, your wound has increased drainage and your wound pain has increased Follow-up/Referrals: Omid Pineda MD [Physician] - 07/11/24 9:30 am () Sera El MD [Primary Care Provider] - Diet: Regular Addtl Attending Provider Instructions: ACTIVITY RECOMMENDATIONS: * Walk as much as possible. * No heavy lifting (>10 lbs.) for 6 weeks. SPECIAL CARE INSTRUCTIONS: * Ice to hernia repair site on and off until bedtime tonight. * May shower. Let water run over area and pat dry. * You can remove outer dressing at home. Replace if you would like but do not need. * Leave surgical glue on incision, this will fall off on its own. * Call the surgeon's office with any questions or concerns - (ex. temperature higher than 101 degrees F, excessive bleeding or pain). MEDICATIONS: Resume previous medications unless instructed otherwise by your surgeon. * Can take extra strength Tylenol and Ibuprofen as needed for mild to moderate pain -650 mg Tylenol every 6 hours as needed * Ibuprofen 600 mg every 6 hours with food * Tramadol 1 every 4 hours, as needed for moderate to severe pain FOLLOW UP VISIT: If not already scheduled, please call the office to schedule a two week follow- up appointment. Office number Pending Studies at Discharge: No Stand-Alone Forms: My [facility] stickK, Smoking Cessation Medications and DC Order Prescriptions: New tramadol 50 mg tablet 50 mg PO Q4H PRN (Reason: pain) Qty: 15 0RF Continued calcium carbonate-vitamin D3 [Calcium with Vitamin D] 600 mg-10 mcg (400 unit) tablet 1 tab PO QAM omega 1-kvn-grx-fish oil [Fish Oil] 1,200 (144-216) mg capsule 1 cap PO BID Metamucil (with sugar) 3 gram/7 gram powder 1 tbsp PO BID PRN (Reason: Constipation) (DME) blood-glucose meter [OneTouch UltraMini] kit See Dose Instructions .ROUTE .MEDSUPPLY Qty: 1 0RF Dose Instruction: As directed Rx Instructions: Test daily (DME) lancets [OneTouch UltraSoft Lancets] misc See Dose Instructions .ROUTE .MEDSUPPLY Qty: 100 1RF Dose Instruction: As directed Rx Instructions: Test once daily albuterol sulfate 90 mcg/actuation HFA aerosol inhaler 2 puff inhalation QID PRN (Reason: shortness of breath or wheezing) Qty: 6.7 0RF Patient Comments: [place] amoxicillin 500 mg tablet 2,000 mg PO ONCE Qty: 4 3RF Rx Instructions: 4 tabs 1 hour prior to procedure (DME) blood sugar diagnostic Strip See Dose Instructions .ROUTE .MEDSUPPLY Qty: 100 5RF Dose Instruction: As directed Rx Instructions: Test once daily DX:E11.9 metformin 500 mg tablet 500 mg PO BID Qty: 180 3RF meloxicam 15 mg tablet 15 mg PO QAM Qty: 90 3RF simvastatin 10 mg tablet 10 mg PO QPM Qty: 90 3RF (DME) FreeStyle Stephon 3 Sensor Device See Rx Instructions .Route Qty: 1 0RF Rx Instructions: As directed lorazepam [Ativan] 0.5 mg tablet 0.5 mg PO BID PRN (Reason: anxiety) Qty: 60 4RF losartan 50 mg tablet 50 mg PO BID Qty: 180 3RF isosorbide mononitrate 30 mg tablet extended release 24 hr 30 mg PO QPM Qty: 90 3RF amlodipine 10 mg tablet 10 mg PO QAM Qty: 90 1RF Jardiance 10 mg tablet 10 mg PO DAILY Qty: 90 1RF trazodone 50 mg tablet 50 - 100 mg PO HS PRN (Reason: insomnia) Qty: 90 0RF Rx Instructions: 1 to 2 tabs orally at bedtime; PRN; hydrocortisone 2.5 % cream 1 applic topical BID PRN (Reason: skin irritation) Qty: 20 4RF (DME) FreeStyle Stephon 3 [place] Misc See Rx Instructions .Route Qty: 1 0RF Rx Instructions: As directed vibegron 75 mg tablet 75 mg PO DAILY Qty: 90 3RF tamsulosin 0.4 mg capsule 0.4 mg PO BIDWMEAL Qty: 180 3RF cholecalciferol (vitamin D3) [Vitamin D3] 50 mcg (2,000 unit) Capsule 50 mcg PO BID Discharge Orders: Discharge Order (Routine); Ordered 06/28/24 Ordered By: Adriana Bhardwaj Admission Data Admit Date/Time: 06/27/24 15:08 Attending Provider: Omid Pineda Admit Provider: Omid Pnieda Primary Care Provider: Sera El Other Providers: Omid Pineda; Nghia Duval; Malou Bahena; Wyatt Schaffer; Ronak Cui; Kiran Dove; Nestor Petty; Nichole Dhaliwal; Jeannette Olmstead; Tere Shaw; Gillian Hatfield; Cl Hilliard; Aniyah Logan; Ole Avina; Wyatt Machado; Praveen Rodriguez; Michael Sawyer; Sanam Ashby; Laura Walls; Laura Reich; Arely Caro; Clementine Vieira; Rose Morgan; Verenice Ramirez; Geo Talbot; Dmitri Metcalf; Violeta Martinez.; Jaye Gallegos; Terrie Bennett; Luis Manuel Rolle; Rocky Aceves; Ronak Mcleod; Kiran Dominguez; Sol Cote; Marivel Ortega; Charleen Rojas; Amauri Sorensen; Sheldon Canela; Bon Munguia; Dylan Reece; Shauna Henning; Tung Cullen; Malaika Maria Other Interventions: Discharge Summary Assessment (RN) Last Done: 06/28/24 10:45
[2024-06-28] MEDS: traMADol HCL 50 MG TABLET PO STA (12:13)
--- NOTE | 2024-06-28 16:49 | Hospitalist Progress Note ---
Date of Service June 28, 2024 Assessment & Plan (1) Incarcerated inguinal hernia: Plan: POD#1 s/p Right Incarcerated Inguinal Hernia Repair with Mesh(Right) - Omid Pineda MD on 06/27 for incarcerated R inguinal hernia containing loop of sigmoid colon. Sigmoid colon not threatened or ishcemia. Hernia sac and contents sent for path Post-op management per primary service, Lovenox SQ started this morning Pain control: patient prefers tramadol, primary plans to send over percocet as doesn't like percocet (2) Benign essential hypertension: Plan: Well-controlled with discharge BP 115/71 (06/28/2024, 7:48am) on 2 gram Na diet, home-scheduled amlodipine 10mg PO daily, imdur 30mg PO qhs, and losartan 50mg PO bid. Patient will continue this same regimen on hospital discharge back to his home on 06/28/2024. (3) Type 2 diabetes mellitus: Plan: Long-term glycemic control is modest given consistently elevated HbA1c levels gr eater than 6.5% since 07/04/2018, 7:36am, on which date/time, patient's HbA1c level was 6.6%. cf., [id number] A1c 7.1% (06/28/2024, 8:41am). Patient was maintained on a carbohydrate consistent diet, lispro insulin sliding scale qac + qhs, and POC glucose qac + qhs while in [facility]. Patient will continue carbohydrate consistent diet, but NOT lispro insulin sliding scale qac + qhs, and POC glucose qac + qhs on hospital discharge back to home on 06/28/2024. Instead, patient will resume his home-scheduled metformin 500mg PO bid and empagliflozin 10mg PO daily on hospital discharge back to home on 06/28/2024. (4) Prostate cancer: Plan: Patient maintained brisk urine output with no need for bowles catheterization while in [facility] from 06/27/2024 to 06/28/2024. Consequently, patient continued to receive his home-scheduled flomax 0.4mg PO bid while in [facility] from 06/27/2024 to 06/28/2024, and will continue this home-scheduled medicationnnnnnnnn nnnnnnnnnnnnnnnnnnnnnnnnnnnnnnnnnnnnnnnnnnnnnnnnnnnnnnnnnnnnnnnnnnnnnnnnnnnnnnnn nnnnnnnnnnnnnnnnnnnnnnnnnnnnnnnnnnnnnnnnnnnnnnnnnnnnnnnnnnnnnnnnnnnnnnnnnnnnnnnn nnnnnn nnnnnnnnnnnnnnnnnnnnnnnnnnnnnnnnnnnnnnnnnnnnnnnnnnnnnnnnnnnnnnnnnnnnnnnnnnnnnnnn nnnnnnnnnnnnnnnnnnnnnnnnnnnnnnnnnnnnnnnnnnnnnnnnnnnnnnnnnnnnnnnnnnnnnnnnnnnnnnnn nnnnnnnnnnnnnnnnnnnnnnnnnnnnnnnnnnnnnnnn nnnnnnnnnnnnnnnnnnnnnnnnnnnnnnnnnnnnnnnnnnnnnnnnnnnnnnnnnnnnnnnnnnnnnnnnnnnnnnnn nnnnnnnnnnnnnnnnnnnnnnnnnnnnnnnnnnnnnnnnnnnnnnnnnnnnnnnnnnnnnnnnnnnnnnnnnnnnnnnn nnnnnnnnnnnnnnnnnnnnnnnnnnnnnnnnnnnnnnnnnnnnnnnnnnnnnnnnnnnnnn Plan Thank you for allowing hospitalist service participate in the care of Mr Gonzalez. Hospitalist service will sign off at this time. Please call with any questions/concerns. Should have f/u PCP about pancreas findings/possible IPMN in 1 year Admission and Anticipated Discharge Date Admission Date: June 27, 2024 Subjective "I feel a lot better after Dr. Omid Pineda fixed my inguinal hernia on the right side. The pain used to be a 10 and now it is a 5. I am ready to go home now. No complaints at all." Review of Systems Constitutional: Negative for antecedent/coincident fevers, chills, diaphoresis, cough, wheeze, sore throat, hemoptysis, chest pains, palpitations, pleurisy, nausea, vomiting, diarrhea, abdominal pain, pelvic pain, hematemesis, hematochezia, melena, hematuria, dysuria, frequency, urgency, headaches, dizziness, lightheadedness, visual changes, hearing changes, weakness, falls, syncope, trauma, travel history, sick contacts, or food/drug ingestions novel or new. All other review of systems are reported as negative by the patient on discharge date 06/28/2024. Physical Exam Constitutional: General: comfortable, coherent, cooperative. Wide awake and alert. Not confused, lethargic, or obtunded. Patient speaks in complete, fluent, and articulate sentences without pause, interruption, cough, or wheeze. HEENT: NC/AT. EOMI, PERRL. No nystagmus, gaze paresis, anisocoria, miosis, mydriasis, hyphema, chemosis, scleral icterus, conjunctivitis, or pterygium. No otorrhea, no rhinorrhea. No pharyngeal discharge or erythema. Neck: Supple, no stridor, bruit, goiter, or hepatojugular reflux. Jugular venous pressure is estimated to be 8 cm above the sternal angle of Juan, which is typically 5 cm above the level of the right atrium. Hence, there is no jugular venous distention noted on discharge date 06/28/2024. Lymphatics: No pre-post auricular, anterior/posterior cervical, supraclavicular/infraclavicular, axillary, epitrochlear, or inguinal adenopathy. Chest: Symmetric rise and fall with respirations. Non-tender to palpation. Heart: RRR, S1 and S2 noted. No S3 or S4 summation gallop noted. No tripartite friction rub. Grade II/ early systolic murmur @ LLSB without radiation to the carotids, axilla, or back, and which remains invariant in regards to the respiratory cycle. Lungs: Clear to auscultation and percussion. No audible expiratory wheeze, egophony, pectoriloquy, increase in tactile fremitus, or flatness/dullness to percussion at the bases. Abdomen: Soft, non-tender, non-distended. No rebound, guarding, Núñez's sign, or organomegaly. Bowel sounds auscultated in all 4 quadrants. Extremities: No clubbing, cyanosis, or edema. 2+ pedal pulses bilaterally. Skin: No exanthem or enanthem or decubitus ulcer. Neurology: Alert and oriented in regards to person, place, time, and situation. DTR+ and symmetric. 5/5 motor strength in all 4 extremities, both proximally and distally. No myoclonus, tremors, or tics. Urology: No bowles catheter. No urethral discharge. Psychiatry: Appropriate affect. Smiles occasionally. No homicidal/suicidal ideation. Results & Data Results & Data Vital Signs (Past 12 Hours) Vital Signs Temp Pulse Resp BP Pulse Ox O2 Del Method 06/28/24 07:48 36.6 C 64 17 115/71 93 Room Air PG Care Time/CCT Total # of Minutes Spent Total Time Spent with Patient: Total time spent is greater than 50% in coordination of care (as documented) at patient's floor/unit and/or counseling patient: Coding Level of Care Code 44139 SUB INP/OBS CARE 2/35MIN Diagnoses Incarcerated inguinal hernia K40.30 Benign essential hypertension I10 Type 2 diabetes mellitus E11.9 Prostate cancer C61
== END 2024-06-28 13:40 | disposition home or self-care (01) ==
LOC: ED 10:07 → OR 13:10 → 3N 13:10 → OR 13:16